=== PATIENT | female | born 1980 | race Caucasian/White ===

== ENCOUNTER 2016-05-08 07:18 | Day surgery (SDC) | END 2016-05-08 07:19 | disposition home or self-care (01) | CPT/HCPCS: 43239; J3010; J7120 ==

== ENCOUNTER 2016-12-02 20:42 | Emergency (ER) | payer OTHER ==
--- NOTE | 2016-12-02 21:36 | ED Physician Documentation ---
PD HPI HEADACHE - Stated complaint Stated Complaint: HEADACHE - Chief complaint Chief Complaint: Neuro - History obtained from History obtained from: Patient - History of Present Illness Timing - onset: Today (this morning) Timing - duration: Hours Timing - details: Constant, Waxing and waning Pain level now: 8 Worst headache ever?: No: Worst headache ever? Location: Right Quality: Throbbing Associated symptoms: Nausea. No: Fever, Stiff neck, Vomiting Improved by: Dark room, Quiet Worsened by: Light, Noise Similar symptoms before: Diagnosis (c/w previous migraine headaches for this patient (per patient)) Recently seen: Not recently seen - Additional information Additional information: Patient tried Imitrex x 2 doses today, zofran, and motrin; she did not have adequate relief with these medications Review of Systems Constitutional: denies: Fever Eyes: reports: Photophobia. denies: Loss of vision, Decreased vision GI: reports: Nausea. denies: Abdominal Pain Neurologic: reports: Headache. 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 - Present Medications Home Medications: Ambulatory Orders Medication Instructions Recorded Confirmed Albuterol 2.5 mg INH Q4H PRN 09/05/13 12/02/16 Fluticasone/Salmeterol [Advair 1 puffs INH BID 02/18/16 12/02/16 500-50 Diskus] Levalbuterol [Xopenex] 1.25 mg INH RTQ4H #30 neb 02/20/16 12/02/16 Norethindrone 0.35 mg PO DAILY 05/08/16 12/02/16 Cetirizine [ZyrTEC] 10 mg PO DAILY 12/02/16 12/02/16 Ondansetron Odt [Zofran Odt] 4 mg PO PRN PRN 12/02/16 12/02/16 Sumatriptan Succinate [Imitrex] 50 mg PO PRN PRN 12/02/16 12/02/16 - Allergies Allergies/Adverse Reactions: Allergies Allergy/AdvReac Type Severity Reaction Status Date / Time peanut Allergy Severe anaphalaxis Verified 04/26/16 17:53 ipratropium bromide * Allergy Intermediate Unknown Verified 04/26/16 17:53 [From Atrovent] tree nut Allergy Anaphylaxis Verified 04/26/16 17:53 zolpidem tartrate * AdvReac Intermediate swelling Verified 04/26/16 17:53 [From Ambien] - Social History Does the pt smoke?: No Smoking Status: Never smoker Does the pt drink ETOH?: No Does the pt have substance abuse?: No - Immunizations Immunizations are current?: Yes PD ED PE NORMAL - Vitals Vital signs reviewed: Yes - General General: Alert and oriented X 3, Well developed/nourished, Other (appears uncomfortable) - HEENT HEENT: PERRL, EOMI - Neck Neck: Supple, no meningeal sign - Cardiac Cardiac: RRR, No murmur - Respiratory Respiratory: No respiratory distress, Clear bilaterally - Neuro Neuro: Alert and oriented X 3, stamper blocker 2-12 intact, No motor deficit, No sensory deficit, Normal speech Results - Vitals Vitals: Vital Signs - 24 hr 12/02/16 12/02/16 20:47 22:51 Temperature 36.6 C 36.7 C Heart Rate 97 84 Respiratory 18 18 Rate Blood Pressure 131/91 H 115/78 O2 Saturation 99 97 Oxygen O2 Source Room air PD MEDICAL DECISION MAKING - ED course Complexity details: re-evaluated patient, considered differential, d/w patient ED course: Patient says that Toradol, reglan, and benadryl have worked in the past for her migraine headaches. These were given and, on reevaluation, she appears awake, alert, and in NAD. She reports significant improvement in symptoms and requesting d/c home Departure - Departure Disposition: 01 Home, Self Care Clinical Impression: Migraine Condition: Good Instructions: ED Headache Migraine Follow-Up: Sid Alberto DO [Primary Care Provider] - Discharge Date/Time: 12/02/16 22:55
[2016-12-02] MEDS ORDERED: KETOROLAC 60 MG/2 ML VIAL IM STA (21:47)
[2016-12-02] MEDS ORDERED: METOCLOPRAMIDE 10 MG/2 ML VIAL IM STA (21:47)
[2016-12-02] MEDS ORDERED: diphenhydrAMINE INJ 50 MG/ML VIAL IM STA (21:48)
[2016-12-02] MEDS ORDERED: diphenhydrAMINE INJ 50 MG/ML VIAL ONE (21:54)
[2016-12-02] MEDS ORDERED: METOCLOPRAMIDE 10 MG/2 ML VIAL ONE (21:54)
[2016-12-02] MEDS ORDERED: KETOROLAC 60 MG/2 ML VIAL ONE (21:55)
[2016-12-02 22:51] VITALS: BP 115/78
== END 2016-12-02 22:55 | disposition home or self-care (01) ==
LOC: ED 20:42
DX: G43.909 Migraine, unspecified, not intractable, without status migrainosus (principal)
CPT/HCPCS: 96372; 99283

== ENCOUNTER 2017-07-26 13:05 | Emergency (ER) | payer OTHER ==
[2017-07-26 13:12] VITALS: BP 138/79
--- NOTE | 2017-07-26 13:28 | ED Physician Documentation ---
PD HPI HEENT - Stated complaint Stated Complaint: TOOTH PAIN, EAR PAIN, HEAD PAIN, NECK PAIN - Chief complaint Chief Complaint: Heent - History obtained from History obtained from: Patient - History of Present Illness Timing - onset: Other (She has a history of a lot of dental problems, she developed right upper canine pain 4 days ago and started taking a Z-Jez she had leftover for another condition a couple of days ago but it continues to get worse with pain now radiating throughout the whole area. No fevers.) Review of Systems Constitutional: denies: Fever, Chills Nose: denies: Rhinorrhea / runny nose, Congestion Throat: denies: Sore throat Cardiac: denies: Chest pain / pressure PD PAST MEDICAL HISTORY - Past Medical History Past Medical History: Yes Cardiovascular: None Respiratory: Asthma Neuro: Headache/migraine, Other Endocrine/Autoimmune: None GI: Other : None HEENT: None Psych: None Musculoskeletal: Fatigue, Other Derm: Eczema - Past Surgical History Past Surgical History: Yes General: Cholecystectomy, Colonoscopy Ortho:  /WASTE HAND: section - Present Medications Home Medications: Ambulatory Orders Medication Instructions Recorded Confirmed Albuterol 2.5 mg INH Q4H PRN 09/05/13 12/02/16 Fluticasone/Salmeterol [Advair 1 puffs INH BID 02/18/16 12/02/16 500-50 Diskus] Levalbuterol [Xopenex] 1.25 mg INH RTQ4H #30 neb 02/20/16 12/02/16 Norethindrone 0.35 mg PO DAILY 05/08/16 12/02/16 Cetirizine [ZyrTEC] 10 mg PO DAILY 12/02/16 12/02/16 Ondansetron Odt [Zofran Odt] 4 mg PO PRN PRN 12/02/16 12/02/16 Sumatriptan Succinate [Imitrex] 50 mg PO PRN PRN 12/02/16 12/02/16 Penicillin V Potassium 500 mg PO QID #40 tablet 07/26/17 - Allergies Allergies/Adverse Reactions: Allergies Allergy/AdvReac Type Severity Reaction Status Date / Time peanut Allergy Severe anaphalaxis Verified 07/26/17 13:11 ipratropium bromide * Allergy Intermediate Unknown Verified 07/26/17 13:11 [From Atrovent] tree nut Allergy Anaphylaxis Verified 07/26/17 13:11 zolpidem tartrate * AdvReac Intermediate swelling Verified 07/26/17 13:11 [From Ambien] - Social History Does the pt smoke?: No Smoking Status: Never smoker Does the pt drink ETOH?: No Does the pt have substance abuse?: No - Immunizations Immunizations are current?: Yes PD ED PE NORMAL - Vitals Vital signs reviewed: Yes - General General: Alert and oriented X 3, No acute distress - HEENT HEENT: Other (Right upper canine is tender, she is receding gums. There is no facial swelling, trismus, sublingual edema, or facial swelling. TMs are normal. ) - Neck Neck: Supple, no meningeal sign, No bony TTP - Neuro Neuro: Alert and oriented X 3, Normal speech Results - Vitals Vitals: Vital Signs - 24 hr 07/26/17 13:09 Temperature 36.6 C Heart Rate 90 Respiratory 18 Rate Blood Pressure 138/79 H O2 Saturation 100 Oxygen O2 Source Room air Departure - Departure Disposition: 01 Home, Self Care Clinical Impression: Pain, dental Condition: Good Record reviewed to determine appropriate education?: Yes Instructions: ED Tooth Pain Prescriptions: Penicillin V Potassium 500 mg PO QID #40 tablet Comments: Your blood pressure was elevated today on check into the emergency department. This does not mean that you have hypertension, it is a common phenomenon to come to the emergency department and have elevated blood pressure. I recommend that you see your primary care physician within the week to have it rechecked when you are feeling better. It is very important that you follow-up with a dentist. When it comes to dental problems like yours, the emergency department can only offer a short- term solution to your long-term problem. A couple of low cost options for dental care include: [facility] in [place], calls [phone] for an appointment Or [facility] in [place], call [phone] for an appointment.
== END 2017-07-26 13:32 | disposition home or self-care (01) ==
LOC: ED 13:05
DX: K08.89 Other specified disorders of teeth and supporting structures (principal); R03.0 Elevated blood-pressure reading, without diagnosis of hypertension
CPT/HCPCS: 99283

== ENCOUNTER 2017-07-27 18:42 | Emergency (ER) | payer OTHER ==
[2017-07-27] MEDS ORDERED: ONDANSETRON 4 MG/2 ML VIAL IVP STA (19:02)
[2017-07-27] MEDS ORDERED: KETOROLAC 60 MG/2 ML VIAL IVP STA (19:02)
[2017-07-27] MEDS ORDERED: diphenhydrAMINE INJ 50 MG/ML VIAL IVP STA (19:03)
[2017-07-27] MEDS ORDERED: METOCLOPRAMIDE 10 MG/2 ML VIAL IVP STA (19:03)
--- NOTE | 2017-07-27 19:05 | ED Physician Documentation ---
History of Present Illness - Stated complaint Stated Complaint: FACE PAIN/BANERJEE - Chief complaint Chief Complaint: Heent - History obtained from History obtained from: Patient - History of Present Illness Timing: Other (She was seen here for yesterday for right upper dental pain that was radiating throughout the face. She was placed on penicillin and at the time declined pain medications. She returns today because the pain is much worse and now involve the occipital area and she is developing some neck tightness and stiffness which reminds her of a prior episode of viral meningitis which has her very worried. There is no fever.) Review of Systems Ten Systems: 10 systems reviewed and negative Constitutional: denies: Fever, Chills Nose: denies: Rhinorrhea / runny nose, Congestion Throat: reports: Dental pain / toothache. 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 - Present Medications Home Medications: Ambulatory Orders Medication Instructions Recorded Confirmed Albuterol 2.5 mg INH Q4H PRN 09/05/13 12/02/16 Fluticasone/Salmeterol [Advair 1 puffs INH BID 02/18/16 12/02/16 500-50 Diskus] Levalbuterol [Xopenex] 1.25 mg INH RTQ4H #30 neb 02/20/16 12/02/16 Norethindrone 0.35 mg PO DAILY 05/08/16 12/02/16 Cetirizine [ZyrTEC] 10 mg PO DAILY 12/02/16 12/02/16 Ondansetron Odt [Zofran Odt] 4 mg PO PRN PRN 12/02/16 12/02/16 Sumatriptan Succinate [Imitrex] 50 mg PO PRN PRN 12/02/16 12/02/16 Penicillin V Potassium 500 mg PO QID #40 tablet 07/26/17 - Allergies Allergies/Adverse Reactions: Allergies Allergy/AdvReac Type Severity Reaction Status Date / Time peanut Allergy Severe anaphalaxis Verified 07/26/17 13:11 ipratropium bromide * Allergy Intermediate Unknown Verified 07/26/17 13:11 [From Atrovent] tree nut Allergy Anaphylaxis Verified 07/26/17 13:11 zolpidem tartrate * AdvReac Intermediate swelling Verified 07/26/17 13:11 [From Ambien] - Social History Does the pt smoke?: No Smoking Status: Never smoker Does the pt drink ETOH?: No Does the pt have substance abuse?: No - Immunizations Immunizations are current?: Yes PD ED PE NORMAL - Vitals Vital signs reviewed: Yes - General General: Alert and oriented X 3, No acute distress - HEENT HEENT: PERRL, EOMI, Ears normal, Other (She has receding gums and tenderness around the right upper canine, but no facial swelling, trismus, sublingual edema. TMs are normal.) - Neck Neck: No bony TTP, Other (She does have mild neck stiffness.) - Cardiac Cardiac: RRR, No murmur - Respiratory Respiratory: No respiratory distress, Clear bilaterally - Abdomen Abdomen: Normal bowel sounds, Soft, Non tender - Back Back: No CVA TTP, No spinal TTP - Derm Derm: Normal color, Warm and dry - Extremities Extremities: No edema, No calf tenderness / cord - Neuro Neuro: Alert and oriented X 3, Normal speech Eye Opening: Spontaneous Motor: Obeys Commands Verbal: Oriented GCS Score: 15 - Psych Psych: Normal mood, Normal affect Results - Vitals Vitals: Vital Signs - 24 hr 07/27/17 18:45 Temperature 36.6 C Heart Rate 78 Respiratory 18 Rate Blood Pressure 141/91 H O2 Saturation 100 Oxygen O2 Source Room air - Labs Labs: Laboratory Tests 07/27/17 07/27/17 07/27/17 19:17 19:17 19:30 WBC 12.0 H RBC 4.34 Hgb 12.7 Hct 37.8 MCV 87.2 MCH 29.3 MCHC 33.6 RDW 12.9 Plt Count 453 H MPV 7.0 L Neut # 8.5 H Lymph # 2.2 [place] # 0.6 Eos # 0.6 Baso # 0.1 Absolute Nucleated RBC 0.01 Nucleated RBC % 0.1 Sodium 134 L Potassium 4.0 Chloride 100 L Carbon Dioxide 25 Anion Gap 9.0 BUN 12 Creatinine 0.7 Estimated GFR (MDRD) 95 Glucose 89 Calcium 9.2 Total Bilirubin 0.2 AST 25 ALT 30 Alkaline Phosphatase 38 L Total Protein 7.7 Albumin 4.0 Globulin 3.7 Albumin/Globulin Ratio 1.1 Lipase 16 L CSF Color COLORLESS CSF Clarity CLEAR Xanthrochromic ABSENT CSF WBC 1 CSF RBC 0 CSF Cell Count Tube # CSF TUBE# 3 CSF Glucose 55 CSF Total Protein 47 H Procedures - Lumbar Puncture Position: Sitting Location: L3-L4 Anesthesia: Local lidocaine CSF: Clear Pressures: Opening Pressure Other: Sterile prep and drape, Patient tolerated well PD MEDICAL DECISION MAKING - ED course ED course: Medically this really is not consistent with meningitis but she was very worried for same and her symptoms were reminiscent of prior episode of same so an LP was done and negative for same. She was administered IV fluids, Toradol, Reglan, and Benadryl with some relief of her pain. Also IV Rocephin. Still seems like a dental source. Departure - Departure Disposition: 01 Home, Self Care Clinical Impression: Pain, dental Migraine Qualifiers: Migraine type: without aura Status migrainosus presence: without status migrainosus Intractability: not intractable Qualified Code(s): G43.009 - Migraine without aura, not intractable, without status migrainosus Condition: Good Record reviewed to determine appropriate education?: Yes Instructions: ED Tooth Pain Comments: Hydrocodone as needed for pain, also ibuprofen. Return if worsening and follow- up with your dentist as previously discussed. Continue the antibiotics. Your blood pressure was elevated today on check into the emergency department. This does not mean that you have hypertension, it is a common phenomenon to come to the emergency department and have elevated blood pressure. I recommend that you see your primary care physician within the week to have it rechecked when you are feeling better.
[2017-07-27 19:22] LABS: BASOPHILS # (AUTO) 0.1 10^3/uL (0.0-0.1); EOSINOPHILS % (AUTO) 4.6 %; LYMPHOCYTES # (AUTO) 2.2 10^3/uL (1.5-3.5); MONOCYTES # (AUTO) 0.6 10^3/uL (0.0-1.0); MONOCYTES % (AUTO) 5.3 %; NEUTROPHILS # (AUTO) 8.5 10^3/uL (1.5-6.6)
[2017-07-27] MEDS ORDERED: LIDOCAINE 1%-EPI 1:100000 20 ML MDV SUBQ STA (19:24)
[2017-07-27 19:25] LABS: EOSINOPHILS # (AUTO) 0.6 10^3/uL (0.0-0.7); HGB - HEMOGLOBIN 12.7 g/dL (12.0-16.0); LYMPHOCYTES % (AUTO) 18.3 %; MEAN CORPUSCULAR HEMOGLOBIN 29.3 pg (27.0-31.0); MEAN CORPUSCULAR HGB CONC 33.6 g/dL (32.0-36.0); MEAN CORPUSCULAR VOLUME 87.2 fL (81.0-99.0); NEUTROPHILS % (AUTO) 70.8 %; PLT - PLATELET COUNT 453 10^3/uL (130-450); RED BLOOD COUNT 4.34 10^6/uL (4.20-5.40); RED CELL DISTRIBUTION WIDTH 12.9 % (12.0-15.0)
[2017-07-27 19:33] LABS: ALBUMIN/GLOBULIN RATIO 1.1 (1.0-2.2); BILIRUBIN,TOTAL 0.2 mg/dL (0.2-1.0); CALCIUM 9.2 mg/dL (8.5-10.3); CREATININE 0.7 mg/dL (0.4-1.0); TOTAL PROTEIN 7.7 g/dL (6.7-8.2)
[2017-07-27 20:00] LABS: CSF - GLUCOSE 55 mg/dL (45-70)
[2017-07-27 20:16] LABS: CLARITY,CSF CLEAR (CLEAR); COLOR,CSF COLORLESS (COLORLESS); CSF TUBE # CSF TUBE# 3; CSF XANTHOCHROMIA ABSENT (ABSENT); RED BLOOD CELL,CSF 0 /mm^3 (0-1); WHITE BLOOD CELL,CSF 1 /mm^3 (0-5)
[2017-07-27] MEDS ORDERED: cefTRIAXone 1 GM in SODIUM CHLORIDE 0.9% MINIBAG 100 ML IV STA (20:18)
[2017-07-27 21:07] VITALS: BP 117/76
== END 2017-07-27 21:06 | disposition home or self-care (01) ==
LOC: ED 18:42
DX: K08.89 Other specified disorders of teeth and supporting structures (principal); G43.909 Migraine, unspecified, not intractable, without status migrainosus; R03.0 Elevated blood-pressure reading, without diagnosis of hypertension
CPT/HCPCS: 36415; 62270; 80053; 82945; 83690; 84157; 85025; 87070; 87205; 89051; 96365; 96375; 99283; 99284; J1200; J2765

== ENCOUNTER 2017-08-16 14:39 | Emergency (ER) | payer OTHER ==
[2017-08-16] MEDS ORDERED: EPINEPHrine 1 MG/ML AMP IM STA (14:46)
[2017-08-16] MEDS ORDERED: diphenhydrAMINE INJ 50 MG/ML VIAL IVP STA (14:47)
[2017-08-16] MEDS ORDERED: methylPREDNISolone SUCCINATE 125 MG/2 ML VIAL IVP STA (14:47)
[2017-08-16] MEDS ORDERED: SODIUM CHLORIDE 0.9% 1,000 ML IV ONE ×2 (14:47)
--- NOTE | 2017-08-16 14:53 | ED Physician Documentation ---
History of Present Illness - Stated complaint Stated Complaint: SOA.ALLERGIC REACTION - Chief complaint Chief Complaint: Allergic Rx - History obtained from History obtained from: Patient, Family - History of Present Illness Timing: How many minutes ago (30) Pain level max: 0 Pain level now: 0 Improved by: epi pen Worsened by: eating pesto - Additonal information Additional information: States eating pesto today and developed an allergic reaction. Used her epi pen immediately. Now feeling short of breath. Has known allergies to nuts. Review of Systems Ten Systems: 10 systems reviewed and negative Constitutional: denies: Fever, Chills Ears: denies: Ear pain Nose: denies: Rhinorrhea / runny nose, Congestion Throat: denies: Sore throat Cardiac: denies: Chest pain / pressure Respiratory: reports: Dyspnea, Wheezing. 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 - Present Medications Home Medications: Ambulatory Orders Medication Instructions Recorded Confirmed Albuterol 2.5 mg INH Q4H PRN 09/05/13 12/02/16 Fluticasone/Salmeterol [Advair 1 puffs INH BID 02/18/16 12/02/16 500-50 Diskus] Levalbuterol [Xopenex] 1.25 mg INH RTQ4H #30 neb 02/20/16 12/02/16 Norethindrone 0.35 mg PO DAILY 05/08/16 12/02/16 Cetirizine [ZyrTEC] 10 mg PO DAILY 12/02/16 12/02/16 Ondansetron Odt [Zofran Odt] 4 mg PO PRN PRN 12/02/16 12/02/16 Sumatriptan Succinate [Imitrex] 50 mg PO PRN PRN 12/02/16 12/02/16 Penicillin V Potassium 500 mg PO QID #40 tablet 07/26/17 Epinephrine [Epipen 2-Jez] 0.3 mg IJ ONCE PRN #1 auto.injct 08/16/17 predniSONE [Prednisone] 40 mg PO DAILY #10 tablet 08/16/17 - Allergies Allergies/Adverse Reactions: Allergies Allergy/AdvReac Type Severity Reaction Status Date / Time peanut Allergy Severe anaphalaxis Verified 08/16/17 14:51 ipratropium bromide * Allergy Intermediate Unknown Verified 08/16/17 14:51 [From Atrovent] tree nut Allergy Anaphylaxis Verified 08/16/17 14:51 walnut Allergy Anaphylaxis Verified 08/16/17 14:51 zolpidem tartrate * AdvReac Intermediate swelling Verified 08/16/17 14:51 [From Ambien] - Social History Does the pt smoke?: No Smoking Status: Never smoker Does the pt drink ETOH?: No Does the pt have substance abuse?: No - Immunizations Immunizations are current?: Yes PD ED PE NORMAL - Vitals Vital signs reviewed: Yes - General General: Alert and oriented X 3, Other (mod resp distress, audible wheezing) - HEENT HEENT: PERRL, Moist mucous membranes, Pharynx benign, Other (no stridor) - Neck Neck: Supple, no meningeal sign - Cardiac Cardiac: Other (tachycardic) - Respiratory Respiratory: Other (wheezing B, mod resp distress.) - Abdomen Abdomen: Soft, Non tender, Non distended - Back Back: No spinal TTP - Derm Derm: Warm and dry, No rash - Extremities Extremities: No calf tenderness / cord - Neuro Neuro: Alert and oriented X 3 - Psych Psych: Normal affect Results - Vitals Vitals: Vital Signs - 24 hr 08/16/17 08/16/17 08/16/17 14:47 15:00 15:30 Temperature Heart Rate 125 H 104 H 98 Respiratory 26 H 24 22 Rate Blood Pressure 135/103 H O2 Saturation 99 100 100 08/16/17 08/16/17 08/16/17 15:48 15:52 15:58 Temperature 36.4 C L Heart Rate 104 H Respiratory 22 Rate Blood Pressure 127/82 H O2 Saturation 99 08/16/17 17:35 Temperature Heart Rate 104 H Respiratory 18 Rate Blood Pressure 105/57 L O2 Saturation 95 Oxygen O2 Source Room air - Labs Labs: Laboratory Tests 08/16/17 16:05 Urine Color YELLOW Urine Clarity CLEAR Urine pH 5.5 Ur Specific [place] 1.015 Urine Protein NEGATIVE Urine Glucose (UA) NEGATIVE Urine Ketones NEGATIVE Urine Occult Blood NEGATIVE Urine Nitrite NEGATIVE Urine Bilirubin NEGATIVE Urine Urobilinogen 0.2 (NORMAL) Ur Leukocyte Esterase NEGATIVE Ur Microscopic Review NOT INDICATED Urine Culture Comments NOT INDICATED Urine HCG, Qual NEGATIVE PD MEDICAL DECISION MAKING - ED course Complexity details: reviewed old records, reviewed results, re-evaluated patient , considered differential, d/w patient, d/w family ED course: Patient is a 37-year-old female who presents to the emergency department with an allergic reaction today. Given a second dose of epinephrine here as well as Solu-Medrol, prednisone and Benadryl. She was also given breathing treatments as well as IV magnesium. Respiratory distress resolved. No recurrent wheezing or stridor in the emergency department despite several hours of observation. She has epi-pens at home. Someone will stay with her today. She would like to go home at this time and I think this is reasonable given the resolution of her symptoms and the fact that several hours of pass since her last epinephrine. Patient counseled regarding signs and symptoms for which I believe and urgent re -evaluation would be necessary. Patient with good understanding of and agreement to plan and is comfortable going home at this time This document was made in part using voice recognition software. While efforts are made to proofread this document, sound alike and grammatical errors may occur. Departure - Departure Disposition: 01 Home, Self Care Clinical Impression: Anaphylaxis Qualifiers: Encounter type: initial encounter Qualified Code(s): T78.2XXA - Anaphylactic shock, unspecified, initial encounter Condition: Good Instructions: ED Anaphylaxis General Follow-Up: your,doctor in 1 week [Other] Prescriptions: Epinephrine [Epipen 2-Jez] 0.3 mg IJ ONCE PRN #1 auto.injct PRN Reason: Anaphylaxis predniSONE [Prednisone] 40 mg PO DAILY #10 tablet Comments: Return if you worsen. Continue the steroids at home. Also continue Benadryl at home, 25-50 mg every 6 hours as needed. Someone needs to stay with you today. Discharge Date/Time: 08/16/17 17:35
[2017-08-16] MEDS: ALBUTEROL NEB 2.5 MG/3 ML INH STA ×2 (15:00→15:04)
[2017-08-16] MEDS ORDERED: ALBUTEROL NEB 2.5 MG/3 ML INH ONE (15:15)
[2017-08-16] MEDS ORDERED: MAGNESIUM SULFATE 2 GRAM 2 GM/50 ML BAG IV ONE (15:52)
[2017-08-16 16:10] LABS: BILIRUBIN,URINE NEGATIVE (NEGATIVE); GLUCOSE, URINE (UA) NEGATIVE (NEGATIVE); KETONES,URINE (UA) NEGATIVE (NEGATIVE); LEUKOCYTE ESTERASE, URINE NEGATIVE (NEGATIVE); NITRITE,URINE NEGATIVE (NEGATIVE); OCCULT BLOOD,URINE NEGATIVE (NEGATIVE); PH,URINE 5.5 PH (5.0-7.5); PROTEIN,URINE NEGATIVE (NEGATIVE); UROBILINOGEN,URINE 0.2 (NORMAL) E.U./dL (NORMAL)
[2017-08-16 16:14] LABS: CLARITY,URINE CLEAR (CLEAR); HCG UR QUAL NEGATIVE
[2017-08-16] MEDS ORDERED: predniSONE 20 MG TABLET PO STA (17:21)
[2017-08-16 17:36] VITALS: BP 105/57
== END 2017-08-16 17:35 | disposition home or self-care (01) ==
LOC: ED 14:39
DX: T78.2XXA Anaphylactic shock, unspecified, initial encounter (principal); Z91.018 Allergy to other foods; J45.909 Unspecified asthma, uncomplicated
CPT/HCPCS: 81003; 81025; 94640; 96361; 96372; 96374; 96375; 99284; J1200; J7512; 81001; 87086

== ENCOUNTER 2017-12-22 07:45 | Outpatient (CLI) | payer OTHER ==
--- NOTE | 2017-12-22 14:50 | MRI Report ---
Procedure Date: 12/22/2017 Accession Number: [id number] / [id number] Procedure: MRI - Cervical Spine W/O CPT Code: FULL RESULT: EXAM: MRI CERVICAL SPINE WITHOUT CONTRAST EXAM DATE: 12/22/2017 09:07 AM. CLINICAL HISTORY: Dorsalgia, unspecified. Headache. COMPARISONS: CERVICAL SPINE W/WO 01/20/2013 10:22 AM. TECHNIQUE: Multiplanar, multisequence T1-weighted and fluid-sensitive sequences of the cervical spine without contrast. Other: None. FINDINGS: Neurologic Structures: The visualized posterior fossa structures are unremarkable. No signal abnormality in the visualized spinal cord. The spinal canal is adequate. Alignment: No scoliosis or spondylolisthesis. Bone Marrow: No gross fractures or bone lesions. No marrow edema. Interspace Levels/Facets: C1-C2: Unremarkable on sagittal series. C2-C3: Unremarkable. C3-C4: Minimal dorsal disk bulge. Mild left-sided degenerative uncovertebral change. Effacement of the ventral thecal sac is noted. Mild canal narrowing. Mild left foraminal stenosis. C4-C5: Minimal dorsal disk bulge is seen. Tiny dorsal annular fissure is seen. Minimal degenerative uncovertebral change is noted. Effacement of the thecal sac is seen. Mild left foraminal narrowing. C5-C6: Minimal dorsal and inferior foraminal disk bulge is seen. Tiny dorsal annular fissure is seen. Effacement of the thecal sac is noted. Mild bilateral foraminal narrowing. C6-C7: Unremarkable. Minimal central dorsal disk bulge. C7-T1: Unremarkable. Musculature: Normal. No edema or fatty atrophy. Other: The paravertebral and prevertebral soft tissues are normal. IMPRESSION: 1. Normal appearance to the cervical spinal cord. 2. Minimal spondylosis with degenerative disk and uncovertebral change in the mid and lower cervical spine as noted above. This is not significantly changed. -C3-C4: Mild canal narrowing. Left mild foraminal stenosis. -C4-C5: Mild left foraminal narrowing. -C5-C6: Mild bilateral foraminal narrowing. RADIA
--- NOTE | 2017-12-22 17:36 | MRI Report ---
Procedure Date: 12/22/2017 Accession Number: [id number] / [id number] Procedure: MRI - Thoracic Spine W/O CPT Code: FULL RESULT: EXAM: MRI THORACIC SPINE WITHOUT CONTRAST EXAM DATE: 12/22/2017 09:39 AM. CLINICAL HISTORY: 37-year-old female. Dorsalgia, unspecified. COMPARISONS: None. TECHNIQUE: Multiplanar, multisequence T1-weighted and fluid-sensitive sequences of the thoracic spine from C7 to L1 without contrast. Other: None. FINDINGS: Spinal Canal: No signal abnormality in the visualized spinal cord. The spinal canal is adequate. Alignment: No scoliosis or spondylolisthesis. Bone Marrow: No gross fractures or bone lesion. No bone marrow replacement. Mild multilevel degenerative changes throughout the thoracic spine as evidenced by mild disk height loss and desiccation. Disk Levels/Facets: C7-T1: Unremarkable. T1-T2: Unremarkable. T2-T3: Unremarkable. T3-T4: Unremarkable. T4-T5: Mild diffuse disk bulge mildly flattening the cord. Mild central canal narrowing. No foraminal narrowing T5-T6: Unremarkable. T6-T7: Mild diffuse disk bulge. No significant central canal or foraminal narrowing. T7-T8: Unremarkable. T8-T9: Unremarkable. T9-T10: Unremarkable. T10-T11: Unremarkable. T11-T12: Unremarkable. T12-L1: Unremarkable. Musculature: Normal. No edema or fatty atrophy. Other: The visualized lungs, mediastinum, and abdominal cavity are unremarkable. IMPRESSION: 1. Mild multilevel degenerative changes throughout the thoracic spine as evidenced by mild disk height loss and desiccation. Mild diffuse disk bulge at T4-T5 level mildly flattens the cord. There is mild central canal narrowing at this level. No foraminal narrowing at T4-T5 level. 2. No significant central canal or foraminal narrowing at remaining thoracic levels. 3. No evidence of acute fracture or malalignment. No bone marrow edema. No cord signal abnormality at any level. RADIA
--- NOTE | 2017-12-22 17:49 | MRI Report ---
Procedure Date: 12/22/2017 Accession Number: [id number] / [id number] Procedure: MRI - Lumbar Spine W/O CPT Code: FULL RESULT: EXAM: MRI LUMBAR SPINE WITHOUT CONTRAST EXAM DATE: 12/22/2017 10:10 AM. CLINICAL HISTORY: 37-year-old female. DORSALGIA,UNSPECIFIED. COMPARISON: MRI lumbar spine 01/20/2013 TECHNIQUE: Multiplanar, multisequence T1-weighted and fluid-sensitive sequences of the lumbar spine from T12 to S1 without contrast. Other: None. FINDINGS: Spinal Canal: The conus terminates at T12. The conus medullaris and cauda equina are unremarkable. Alignment: No scoliosis or spondylolisthesis. Bone Marrow: Five [id number] lumbar vertebral bodies are assumed. No gross fractures or bone lesions. No bone marrow replacement. Disk Levels/Facets: T12-L1: Moderate diffuse disk bulge with superimposed left subarticular/foraminal extrusion measuring 7 mm (series 601 image 35) increased since the prior study. No significant central canal narrowing. No foraminal narrowing. Moderate left lateral recess narrowing with mass effect on traversing left L1 nerve, increased since the prior study. L1-L2: Unremarkable. L2-L3: Unremarkable. L3-L4: Moderate disk desiccation and mild diffuse disk fold. Mild anterior dural compression. No significant central canal narrowing. No foraminal narrowing. No significant interval progression. L4-L5: Mild disk height loss and moderate disk desiccation. Moderate diffuse disk bulge. Mild bilateral facet arthropathy. Mild anterior dural compression. No significant central canal narrowing. Mild bilateral foraminal narrowing. No significant interval progression. L5-S1: Moderate bilateral facet arthropathy. Moderate epidural lipomatosis. Mild to moderate central canal narrowing primarily due to epidural lipomatosis. No foraminal narrowing. Musculature: Normal. No edema or fatty atrophy. Other: Again noted are findings suggesting of uterine adenomyosis (series 301 image 4), incompletely imaged on this study. Pelvic ultrasound may be obtained to further evaluate. The partially visualized retroperitoneum is otherwise unremarkable. IMPRESSION: 1. Mild multilevel degenerative spondylosis, as detailed above and summarized below. No acute fracture or malalignment. No bone marrow edema. No cord signal abnormality. 2. T12-L1 level demonstrates a moderate diffuse disk bulge with superimposed left subarticular/foraminal extrusion measuring 7 mm (series 601 image 35), increased since the prior study. No significant central canal narrowing. No foraminal narrowing. Moderate left lateral recess narrowing with mass effect on traversing left L1 nerve, increased since the prior study. 3. L4-L5 level demonstrates no significant central canal narrowing. Mild bilateral foraminal narrowing. No significant interval progression. 4. L5-S1 level demonstrates mild to moderate central canal narrowing primarily due to epidural lipomatosis. No foraminal narrowing. 5. No significant central canal or foraminal narrowing at remaining lumbar levels. 6. Again noted are findings suggesting of uterine adenomyosis (series 301 image 4), incompletely imaged on this study. Pelvic ultrasound may be obtained to further evaluate. comment: The following findings are so common in adults without low back pain that while we report their presence, they must be interpreted with caution and in the context of the clinical situation. (Reference Tarynk et al, Spine 2001) Prevalence of findings in patients without low back pain: Disk degeneration (any evidence): 92% Disk desiccation/T2 signal loss: 83% Disk height loss: 56% Disk bulge: 64% Disk protrusion: 32% Annular tear/high intensity zone: 38% RADIA
== END 2017-12-22 07:46 | disposition home or self-care (01) ==
LOC: DI 07:45
PROVIDERS: ATTEND Internal Medicine
DX: M50.33 Other cervical disc degeneration, cervicothoracic region (principal); M47.812 Spondylosis without myelopathy or radiculopathy, cervical region; M48.02 Spinal stenosis, cervical region; M47.816 Spondylosis without myelopathy or radiculopathy, lumbar region; M51.26 Other intervertebral disc displacement, lumbar region
CPT/HCPCS: 72141; 72146; 72148

== ENCOUNTER 2018-05-21 10:50 | Day surgery (SDC) | payer OTHER ==
[~2018-05-21 10:50] MED LIST: CYCLOPENTOLATE 1% OPHTH DROPS 2 ML ONE; KETOROLAC 0.45% OPHTH DROPS ONE; PHENYLEPHRINE 2.5% OPHTH 2 ML DROPS ONE; PROPARACAINE 0.5% OPHTH DROPS 15 ML ONE
[2018-05-21] MEDS ORDERED: ceFAZolin 2 GM/50 ML 2 GM/50 ML BAG IV ONE (11:01)
[2018-05-21] MEDS ORDERED: LIDOCAINE 1%-EPI 1:100000 30 ML MDV ONE (11:06)
--- NOTE | 2018-05-21 11:21 | ANESTHESIA ---
Pre-Anesthesia VS, & Labs - Diagnosis desires sterilization, abnormal uterine bleeding - Procedure laparoscopic salpingectomy, endometrial ablation novasure Vital Signs: Temp Pulse Resp BP Pulse Ox 36.8 C 88 16 132/97 H 96 05/21/18 11:10 05/21/18 11:10 05/21/18 11:10 05/21/18 11:10 05/21/18 11:10 Height 5 ft 3 in Weight (kg) 80.29 kg Body Mass Index 28.3 - NPO >8 hours - Is Patient ?: No Home Medications and Allergies Home Medications: Ambulatory Orders Albuterol 2.5 mg INH Q4H PRN 05/14/18 Albuterol Sulfate [Proair Respiclick] 90 mcg IH 05/14/18 Benralizumab [Fasenra] 30 mg SQ 05/14/18 Cholecalciferol (Vitamin D3) [Vitamin D3] 1,000 unit PO 05/14/18 Dextroamphetamine/Amphetamine [Adderall 5 mg Tablet] 5 mg PO 05/14/18 Fluticasone [Flonase] 1 sprays OFE DAILY 05/14/18 Fluticasone/Salmeterol [Advair 500-50 Diskus] 1 each IH BID 05/14/18 Magnesium 250 mg PO 05/14/18 Montelukast [Singulair] 10 mg PO QPM 05/14/18 Zinc Gluconate [Zinc] 50 mg PO 05/14/18 hydrOXYzine HCl [Hydroxyzine HCl] PRN 05/14/18 Albuterol 2.5 mg INH Q4H PRN 09/05/13 Cetirizine [ZyrTEC] 10 mg PO DAILY 12/02/16 Albuterol 2.5 mg INH Q4H PRN 05/14/18 Albuterol Sulfate [Proair Respiclick] 90 mcg IH 05/14/18 Benralizumab [Fasenra] 30 mg SQ 05/14/18 Cholecalciferol (Vitamin D3) [Vitamin D3] 1,000 unit PO 05/14/18 Dextroamphetamine/Amphetamine [Adderall 5 mg Tablet] 5 mg PO 05/14/18 Fluticasone [Flonase] 1 sprays OFE DAILY 05/14/18 Fluticasone/Salmeterol [Advair 500-50 Diskus] 1 each IH BID 05/14/18 Magnesium 250 mg PO 05/14/18 Montelukast [Singulair] 10 mg PO QPM 05/14/18 Zinc Gluconate [Zinc] 50 mg PO 05/14/18 hydrOXYzine HCl [Hydroxyzine HCl] PRN 05/14/18 Allergies/Adverse Reactions: Allergies Allergy/AdvReac Type Severity Reaction Status Date / Time peanut Allergy Severe anaphalaxis Verified 08/16/17 14:51 ipratropium bromide * Allergy Intermediate Unknown Verified 08/16/17 14:51 [From Atrovent] tree nut Allergy Anaphylaxis Verified 08/16/17 14:51 walnut Allergy Anaphylaxis Verified 08/16/17 14:51 zolpidem tartrate * AdvReac Intermediate swelling Verified 08/16/17 14:51 [From Ambien] tiotropium AdvReac Respiratory Verified 05/14/18 14:02 [From Spiriva with HandiHaler] Anes History & Medical History - Anesthetic History Anesthesia Complications: reports: Post-Operative Nausea/Vomiting, Slow wake-up Family history of Anesthesia Complications: Denies Family history of Malignant Hyperthermia: Denies - Medical History Cardiovascular: reports: None Pulmonary: reports: Asthma Gastrointestinal: reports: Other Urinary: reports: None Musculoskeletal: reports: Fatigue, Other Endocrine/Autoimmune: reports: None Blood Disorders: reports: None Skin: reports: Eczema Smoking Status: Never smoker - Surgical History General: Cholecystectomy, Colonoscopy Gynecologic: section Exam General: Alert Dental: Other (crown) Mouth Opening: Greater than 4 Fingerbreadths Neck Mobility: Normal Mallampati classification: I Thyromental Distance: 4-6 cm Respiratory: Wheezing Cardiovascular: Regular rate, Normal S1, Normal S2, No murmurs Mental/Cognitive Status: Alert/Oriented X3, Normal for patient Plan Anesthesia Type: General Consent for Procedure(s) Verified and Reviewed: No Code Status: Attempt Resuscitation ASA classification: 2-Mild systemic disease Is this case an emergency?: No
[2018-05-21 11:22] LABS: HCG UR QUAL NEGATIVE
[2018-05-21] MEDS ORDERED: LACTATED RINGERS 1,000 ML IV ONE (11:36)
[2018-05-21] MEDS ORDERED: BUPIVACAINE 0.25% PF 30 ML VIAL ONE (11:55)
[2018-05-21] MEDS ORDERED: MIDAZOLAM 2 MG/2 ML VIAL IVP ONE (12:00)
[2018-05-21] MEDS ORDERED: ROCURONIUM 50 MG/5 ML VIAL IVP ONE (12:00)
[2018-05-21] MEDS ORDERED: NEOSTIGMINE 1 MG/1 ML 10 ML MDV IVP ONE (12:00)
[2018-05-21] MEDS ORDERED: PROPOFOL 200 MG/20 ML VIAL IVP ONE (12:00)
[2018-05-21] MEDS ORDERED: DEXAMETHASONE 4 MG/ML VIAL IVP ONE (12:00)
[2018-05-21] MEDS ORDERED: ONDANSETRON 4 MG/2 ML VIAL IVP ONE (12:00)
[2018-05-21] MEDS ORDERED: fentaNYL 100 MCG/2 ML VIAL IVP ONE (12:00)
[2018-05-21] MEDS ORDERED: GLYCOPYRROLATE 1 MG/5 ML VIAL IVP ONE (12:00)
[2018-05-21] MEDS ORDERED: KETOROLAC 30 MG/ML VIAL IVP ONE (12:00)
[2018-05-21] MEDS ORDERED: LIDOCAINE-MPF 2% 5 ML VIAL IM ONE (12:00)
[2018-05-21] MEDS ORDERED: BUPIVACAINE 0.25% PF 30 ML VIAL SUBQ ONE ×2 (13:04)
[2018-05-21] MEDS ORDERED: LIDOCAINE MPF 1%-EPI 1:200000 30 ML VIAL SUBQ ONE (13:36)
[2018-05-21] MEDS ORDERED: HYDROcod/ACETAM 10 MG/325 MG TABLET PO PRN (14:00)
[2018-05-21] MEDS ORDERED: ONDANSETRON 4 MG/2 ML VIAL IVP PRN (14:00)
--- NOTE | 2018-05-21 14:02 | OPERATIVE REPORT ---
Operative Report - General Procedure Date: 05/21/18 Planned Procedure: Laparoscopic bilateral salpingectomy, hysteroscopy, D&C, endomet ablation Pre-Op Diagnosis: Desires sterilization, Abnormal uterine bleeding Procedure Performed: Laparoscopic bilateral salpingectomy, lysis of adhesions, hysteroscopy, dilation and curettage, endometrial ablation (Novasure) Post Op Diagnosis: MAL, suspected adenomyosis - Procedure Note Primary Surgeon: Dr. Cat Dumont Secondary Surgeon: Dr. Schuyler Barajas Anesthesia Provider: RYAN Dolan Anesthesia Technique: General ET tube, Local Pathology: 1. Bilateral fallopian tubes, 2. Endometrial curettings IV Fluids (mL): 600 Estimated Blood Loss (mL): 25 Urine Output (mL): 125 Complications: None - Other Other Information/Narrative: Indications: The patient is a 37-year-old 3 para 3 female with bothersome abnormal uterine bleeding, for which she has tried medical therapy in the form of progesterone intrauterine device and control pills. Both of these forms of medication aggravated her chronic medical conditions, and she had to discontinue them despite beneficial effect on her bleeding. Additionally, she desires permanent sterilization in the form of a bilateral tubal occlusion or removal. She states she has completed her childbearing. Menses have been occurring monthly but have been very heavy and painful when off control pills. Endometrial biopsy was performed the clinic and was benign. Limited sono noted a normal-appearing endometrial stripe with no clear endometrial abnormalities noted. A 2.17 x 1.9 cm simple appearing cyst was noted on the right ovary on 19 May. The left ovary appeared normal by sono. The risks, benefits, limitations, alternatives, and expectations of surgery were discussed. The consent was reviewed and signed prior to surgery. Findings: Exam under anesthesia noted the uterus was approximately 8 weeks in size and retroverted. There were no adnexal masses palpable. Operative findings were notable for a normal-appearing, an enlarged, boggy-appearing uterus with normal appearing fallopian tubes and ovaries. A 2 cm simple- appearing cyst was noted on the right ovary and left in situ. There was a 0.5 cm paratubal cyst noted on the right distal fallopian tube. There were no endometriosis lesions present. The liver edge was visualized and appeared fatty consistent with her known diagnosis of such. There were multiple omental adhesions to the anterior peritoneum, just below and above the umbilicus. These were lysed with bovie cautery. Hysteroscopic findings noted a normal endometrial cavity. Cavity length was 10 cm with cervical length 4 cm. Uterine cavity length alone was therefore 6 cm, and width measured at 4.9 cm. Post- ablation hysteroscopy noted disseminated cauterization throughout. Procedure: The patient was taken to the operating room, where general endotracheal anesthesia was administered without difficulty. She was then positioned in the low dorsal lithotomy position with her lower extremities in [place] stirrups. Vagina, perineum, and abdomen were then prepped and draped in a sterile fashion, and an in-an-out catheterization was performed. Procedure Time-Out was then performed. A sterile bivalve speculum was then inserted into the vagina. The anterior lip of the cervix was grasped with a single toothed tenaculum, then the cervix serially dilated with Hegar dilators until a HUMI uterine manipulator could be advanced and the balloon inflated. The tenaculum and speculum were then removed from the vagina. Attention was then turned to the laparoscopy. 0.25% Marcaine was injected infraumbilically, then a 7-mm horizontal skin incision made. A Verrees needle was then inserted through the anterior layers of the abdominal wall with saline drop test suggesting intraperitoneal placement. Carbon dioxide gas insufflation was then performed with appropriate opening pressures noted. Once 2 L of gas was instilled, a 0-degree, 5 mm laparoscope was inserted into a 5 mm trocar and passed through the anterior layers of the abdominal wall using [employer] nique. The abdomen was visualized, then 2 additional ports placed at the right and left lower quadrants, first instilling local anesthetic, then placing 5 mm ports. The patient was placed into Trendelenberg and bowel swept out of the cul-de-sac. The right, distal fallopian tube was then grasped and pulled anteriorly and superiorly. The tubo-ovarian ligament was then crossclamped, cauterized, and cut using the PlasmaKinetic, then the mesosalpinx was crossclamped, cauterized, and cut, completely the right fallopian tube from the uterus at the cornual region. The right fallopian tube was then removed from the abdomen. The left distal fallopian tube including the paratubal cyst was then grasped and pulled anteriorly and superiorly. The tubo-ovarian pedicle was then crosscla mped, cauterized, and cut, the distal left fallopian tube from the left ovary. The mesosalpinx was then serially cauterized and cut until the cornual region was reached, then the cornual fallopian tube was crossclamped cauterized and cut. The surgical sites appeared hemostatic. The left fallopian tube was removed from the abdomen. Attention was then turned to lysis of the omental adhesions, which was performed using the PlasmaKinetic. Once complete, hemostasis of the omentum was ensured. At this point the laparoscopy was deemed complete, and all trochars were removed from the abdomen. The carbon dioxide gas was then allowed to escape. The incisions were then closed with 4-0 Monocryl in a subcuticular fashion followed by Dermabond skin adhesive. Attention was then turned to the hysteroscopy and ablation portion of the case. The uterine manipulator was removed, and the sterile bivalve speculum was then reinserted. The single-toothed tenaculum was then replaced. Quarter percent Marcaine with epinephrine was injected at the 0200, 0400, 0700, and 1000 positions for a paracervical block. The 30 degree diagnostic hysteroscope was then inserted. Using saline for distension, the endometrial cavity was visualized and appeared normal. A curettage was performed, sending tissue for specimen. The Novasure device was placed onto the field. The uterine cavity le ngth and width were measured, and cavity assessment passed without concerns. The ablation was then performed for 55 sec to power of 162 Adames. The device was then retracted, and the hysteroscope reintroduce. Post-ablation endometrium appeared well-cauterized, and the scope was then again removed. The tenaculum was then removed from the cervix, and the tenaculum sites hemostatic with gentle pressure. No bleeding was noted, and the speculum was then removed. At this point the procedure was deemed complete. The patient was then replaced supine, awakened, extubated, and transferred to the PACU in stable condition. There were no complications. Sponge, lap, and needle count were correct x 3.
[2018-05-21] MEDS ORDERED: HYDROcod/ACETAM 10 MG/325 MG TABLET ONE (15:07)
[2018-05-21 15:18] VITALS: BP 137/82
== END 2018-05-21 10:51 | disposition home or self-care (01) ==
LOC: SDS 10:50
PROVIDERS: ATTEND Obstetrics & Gynecology
PROC: 0U5B8ZZ Destruction of Endometrium, Via Natural or Artificial Opening Endoscopic (ICD-10-PCS; 2018-05-21)
PROC: 0UT74ZZ Resection of Bilateral Fallopian Tubes, Percutaneous Endoscopic Approach (ICD-10-PCS; principal; 2018-05-21 12:00)
PROC: 0UJD8ZZ Inspection of Uterus and Cervix, Via Natural or Artificial Opening Endoscopic (ICD-10-PCS; 2018-05-21 12:00)
PROC: 0UDB7ZX Extraction of Endometrium, Via Natural or Artificial Opening, Diagnostic (ICD-10-PCS; 2018-05-21 12:00)
DX: N93.9 Abnormal uterine and vaginal bleeding, unspecified (principal); Z30.2 Encounter for sterilization; N83.201 Unspecified ovarian cyst, right side; N83.8 Other noninflammatory disorders of ovary, fallopian tube and broad ligament; J45.50 Severe persistent asthma, uncomplicated; F90.9 Attention-deficit hyperactivity disorder, unspecified type; G43.909 Migraine, unspecified, not intractable, without status migrainosus; K76.0 Fatty (change of) liver, not elsewhere classified; Z79.891 Long term (current) use of opiate analgesic; Z79.51 Long term (current) use of inhaled steroids; Z79.1 Long term (current) use of non-steroidal anti-inflammatories (NSAID); Z86.39 Personal history of other endocrine, nutritional and metabolic disease
CPT/HCPCS: 58563; 58661; 81025; A9270; J0690; J7120

== ENCOUNTER 2018-07-16 20:18 | Emergency (ER) | payer OTHER ==
[2018-07-16] MEDS ORDERED: ALBUTEROL NEB 2.5 MG/3 ML INH STA ×2 (20:30→21:51)
[2018-07-16] MEDS ORDERED: methylPREDNISolone SUCCINATE 125 MG/2 ML VIAL IVP STA (20:43)
--- NOTE | 2018-07-16 20:48 | ED Physician Documentation ---
PD HPI DYSPNEA - Stated complaint Stated Complaint: SOA - Chief complaint Chief Complaint: Resp - History obtained from History obtained from: Patient - History of Present Illness Timing - onset: How many days ago (4) Timing - onset during: Rest, Exertion Timing - duration: Days (4) Timing - details: Gradual onset Pain level max: 0 Pain level now: 0 Inciting event(s): URI Improved by: Rest Worsened by: Exertion, Coughing Associated symptoms: Cough, Wheezing. No: Fever, Hemoptysis, Chest pain / discomfort Recently seen: Not recently seen - Additional information Additional information: took 60mg prednisone prior to coming in. 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 - Present Medications Home Medications: Ambulatory Orders Medication Instructions Recorded Confirmed Albuterol 2.5 mg INH Q4H PRN 09/05/13 05/14/18 Cetirizine [ZyrTEC] 10 mg PO DAILY 12/02/16 05/21/18 EPINEPHrine [Epipen 2-Jez] 0.3 mg IJ ONCE PRN #1 auto.injct 08/16/17 Albuterol 2.5 mg INH Q4H PRN 05/14/18 05/21/18 Albuterol Sulfate [Proair 90 mcg IH 05/14/18 Respiclick] Benralizumab [Fasenra] 30 mg SQ 05/14/18 Cholecalciferol (Vitamin D3) 1,000 unit PO 05/14/18 [Vitamin D3] Dextroamphetamine/Amphetamine 5 mg PO 05/14/18 [Adderall 5 mg Tablet] Fluticasone [Flonase] 1 sprays OFE DAILY 05/14/18 05/21/18 Fluticasone/Salmeterol [Advair 1 each IH BID 05/14/18 05/21/18 500-50 Diskus] Magnesium 250 mg PO 05/14/18 Montelukast [Singulair] 10 mg PO QPM 05/14/18 05/21/18 Zinc Gluconate [Zinc] 50 mg PO 05/14/18 hydrOXYzine HCl [Hydroxyzine HCl] PRN 05/14/18 - Allergies Allergies/Adverse Reactions: Allergies Allergy/AdvReac Type Severity Reaction Status Date / Time peanut Allergy Severe anaphalaxis Verified 07/16/18 20:23 ipratropium bromide * Allergy Intermediate Unknown Verified 07/16/18 20:23 [From Atrovent] tree nut Allergy Anaphylaxis Verified 07/16/18 20:23 walnut Allergy Anaphylaxis Verified 07/16/18 20:23 zolpidem tartrate * AdvReac Intermediate swelling Verified 07/16/18 20:23 [From Ambien] tiotropium AdvReac Respiratory Verified 07/16/18 20:23 [From Spiriva with HandiHaler] - Social History Does the pt smoke?: No Smoking Status: Never smoker Does the pt drink ETOH?: No Does the pt have substance abuse?: No - Immunizations Immunizations are current?: Yes PD ED PE NORMAL - Vitals Vital signs reviewed: Yes - General General: Alert and oriented X 3, No acute distress, Well developed/nourished - HEENT HEENT: PERRL, Moist mucous membranes - Neck Neck: Supple, no meningeal sign - Cardiac Cardiac: Other (Tachycardic) - Respiratory Respiratory: Other (Wheezing bilaterally) - Abdomen Abdomen: Soft, Non tender, Non distended - Derm Derm: Warm and dry - Extremities Extremities: No edema, No calf tenderness / cord - Neuro Neuro: Alert and oriented X 3 - Psych Psych: Normal mood, Normal affect Results - Vitals Vitals: Vital Signs - 24 hr 07/16/18 07/16/18 07/16/18 20:20 20:46 21:59 Temperature 36.4 C L Heart Rate 130 H 122 H 102 H Respiratory 26 H 18 Rate Blood Pressure 126/96 H O2 Saturation 98 Oxygen O2 Source Room air - Labs Labs: Laboratory Tests 07/16/18 07/16/18 20:45 20:45 WBC 10.5 RBC 4.61 Hgb 13.9 Hct 40.2 MCV 87.2 MCH 30.2 MCHC 34.7 RDW 13.2 Plt Count 381 MPV 7.4 L Neut # (Auto) 9.5 H Lymph # (Auto) 0.7 L [place] # (Auto) 0.2 Eos # (Auto) 0.0 Baso # (Auto) 0.0 Absolute Nucleated RBC 0.00 Nucleated RBC % 0.0 Sodium 136 Potassium 4.1 Chloride 105 Carbon Dioxide 20 L Anion Gap 11.0 BUN 12 Creatinine 0.7 Estimated GFR (MDRD) 95 Glucose 256 H Calcium 9.5 PD MEDICAL DECISION MAKING - ED course Complexity details: reviewed results, re-evaluated patient, considered differential, d/w patient ED course: 37-year-old female with an asthma exacerbation. Feels much better after nebulizer treatments and steroids. Has steroids, albuterol for her nebulizer and albuterol inhaler. We will have her follow-up with her doctor for further care. She is well-appearing, nontoxic. Afebrile. No hypoxia or respiratory distress. Patient counseled regarding signs and symptoms for which I believe and urgent re-evaluation would be necessary. Patient with good understanding of and agreement to plan and is comfortable going home at this time This document was made in part using voice recognition software. While efforts are made to proofread this document, sound alike and grammatical errors may occur. Departure - Departure Disposition: Home, Self Care Clinical Impression: Asthma exacerbation Qualifiers: Asthma severity: unspecified severity Asthma persistence: unspecified Qualified Code(s): J45.901 - Unspecified asthma with (acute) exacerbation Condition: Good Instructions: ED Reactive Airway Disease Follow-Up: MAGAN BLEDSOE MD [Primary Care Provider] - Within 1 week Comments: Continue your current medications at home. Return if you worsen. Follow-up with your doctor for further care.
[2018-07-16 20:59] LABS: BASOPHILS % (AUTO) 0.3 %; HGB - HEMOGLOBIN 13.9 g/dL (12.0-16.0); LYMPHOCYTES # (AUTO) 0.7 10^3/uL (1.5-3.5); LYMPHOCYTES % (AUTO) 6.5 %; MEAN CORPUSCULAR HEMOGLOBIN 30.2 pg (27.0-31.0); MEAN CORPUSCULAR HGB CONC 34.7 g/dL (32.0-36.0); MEAN CORPUSCULAR VOLUME 87.2 fL (81.0-99.0); MEAN PLATELET VOLUME 7.4 fL (7.9-10.8); MONOCYTES # (AUTO) 0.2 10^3/uL (0.0-1.0); MONOCYTES % (AUTO) 2.2 %; NEUTROPHILS # (AUTO) 9.5 10^3/uL (1.5-6.6); PLT - PLATELET COUNT 381 10^3/uL (130-450); RED BLOOD COUNT 4.61 10^6/uL (4.20-5.40); RED CELL DISTRIBUTION WIDTH 13.2 % (12.0-15.0); WHITE BLOOD COUNT 10.5 x10^3/uL (4.8-10.8)
[2018-07-16 21:08] LABS: CALCIUM 9.5 mg/dL (8.5-10.3); CREATININE 0.7 mg/dL (0.4-1.0)
[2018-07-16 22:05] VITALS: BP 106/72
== END 2018-07-16 22:19 | disposition home or self-care (01) ==
LOC: ED 20:18
DX: J45.901 Unspecified asthma with (acute) exacerbation (principal)
CPT/HCPCS: 36415; 80048; 85025; 94640; 96374; 99283

== ENCOUNTER 2018-07-25 19:13 | Inpatient (IN) | payer OTHER ==
[2018-07-25] MEDS ORDERED: ALBUTEROL NEB 2.5 MG/3 ML INH STA (19:28)
[2018-07-25] MEDS ORDERED: IPRATROPIUM/ALBUTEROL 3 ML NEB INH STA (19:28)
[2018-07-25] MEDS ORDERED: MAGNESIUM SULFATE 2 GRAM 2 GM/50 ML BAG IV ONE (19:31)
[2018-07-25] MEDS ORDERED: methylPREDNISolone SUCCINATE 125 MG/2 ML VIAL IVP STA (19:31)
--- NOTE | 2018-07-25 19:33 | ED Physician Documentation ---
PD HPI URI - Stated complaint Stated Complaint: ASTHMA ATTACK - Chief complaint Chief Complaint: Resp - History obtained from History obtained from: Patient - History of Present Illness Timing - onset: Other (37-year-old woman with history of severe asthma with multiple hospital admissions in the past presents with an exacerbation of same. It was set off by a viral URI which she has had for about 2 weeks. She was on steroids, stopped a few days ago and restarted yesterday. Despite that she is much worse over the last 24 hours with severe shortness of breath and productive cough. 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 - Present Medications Home Medications: Ambulatory Orders Medication Instructions Recorded Confirmed Albuterol 2.5 mg INH Q4H PRN 09/05/13 05/14/18 Cetirizine [ZyrTEC] 10 mg PO DAILY 12/02/16 05/21/18 EPINEPHrine [Epipen 2-Jez] 0.3 mg IJ ONCE PRN #1 auto.injct 08/16/17 Albuterol 2.5 mg INH Q4H PRN 05/14/18 05/21/18 Albuterol Sulfate [Proair 90 mcg IH 05/14/18 Respiclick] Benralizumab [Fasenra] 30 mg SQ 05/14/18 Cholecalciferol (Vitamin D3) 1,000 unit PO 05/14/18 [Vitamin D3] Dextroamphetamine/Amphetamine 5 mg PO 05/14/18 [Adderall 5 mg Tablet] Fluticasone [Flonase] 1 sprays OFE DAILY 05/14/18 05/21/18 Fluticasone/Salmeterol [Advair 1 each IH BID 05/14/18 05/21/18 500-50 Diskus] Magnesium 250 mg PO 05/14/18 Montelukast [Singulair] 10 mg PO QPM 05/14/18 05/21/18 Zinc Gluconate [Zinc] 50 mg PO 05/14/18 hydrOXYzine HCl [Hydroxyzine HCl] PRN 05/14/18 - Allergies Allergies/Adverse Reactions: Allergies Allergy/AdvReac Type Severity Reaction Status Date / Time peanut Allergy Severe anaphalaxis Verified 07/16/18 20:23 ipratropium bromide * Allergy Intermediate Unknown Verified 07/16/18 20:23 [From Atrovent] tree nut Allergy Anaphylaxis Verified 07/16/18 20:23 walnut Allergy Anaphylaxis Verified 07/16/18 20:23 zolpidem tartrate * AdvReac Intermediate swelling Verified 07/16/18 20:23 [From Ambien] tiotropium AdvReac Respiratory Verified 07/16/18 20:23 [From Spiriva with HandiHaler] - Social History Does the pt smoke?: No Smoking Status: Never smoker Does the pt drink ETOH?: No Does the pt have substance abuse?: No - Immunizations Immunizations are current?: Yes PD ED PE NORMAL - Vitals Vital signs reviewed: Yes - General General: Alert and oriented X 3, Other (She is visibly tachypneic and speaking in very short sentences with labored breathing.) - HEENT HEENT: PERRL, EOMI - Neck Neck: Supple, no meningeal sign, No bony TTP - Cardiac Cardiac: RRR, No murmur - Respiratory Respiratory: Other (Tight and wheezy throughout and diminished especially at the left base) - Abdomen Abdomen: Soft, Non tender - Back Back: No CVA TTP, No spinal TTP - Derm Derm: No rash - Extremities Extremities: No edema, No calf tenderness / cord - Neuro Neuro: Alert and oriented X 3, Normal speech Results - Vitals Vitals: Vital Signs - 24 hr 07/25/18 07/25/18 19:19 19:25 Temperature 37.3 C Heart Rate 160 H 160 H Respiratory 22 24 Rate Blood Pressure 162/96 H 162/96 H O2 Saturation 98 98 Oxygen O2 Source Room air - Labs Labs: Laboratory Tests 07/25/18 07/25/18 07/25/18 19:38 19:38 19:45 WBC 16.5 H RBC 4.56 Hgb 13.5 Hct 39.4 MCV 86.5 MCH 29.7 MCHC 34.3 RDW 13.8 Plt Count 397 MPV 7.0 L Neut # (Auto) 14.0 H Lymph # (Auto) 1.3 L [place] # (Auto) 1.1 H Eos # (Auto) 0.0 Baso # (Auto) 0.1 Absolute Nucleated RBC 0.00 Nucleated RBC % 0.0 Sodium 137 Potassium 3.6 Chloride 104 Carbon Dioxide 20 L Anion Gap 13.0 BUN 9 Creatinine 0.7 Estimated GFR (MDRD) 95 Glucose 118 H Calcium 9.3 Total Bilirubin 0.2 AST 60 H ALT 86 H Alkaline Phosphatase 59 Total Protein 8.1 Albumin 4.5 Globulin 3.6 Albumin/Globulin Ratio 1.3 Lipase 29 Influenza A (Rapid) Negative Influenza B (Rapid) Negative PD MEDICAL DECISION MAKING - ED course ED course: This is 37-year-old woman with a history of asthma, with several admissions to the hospital in the past who presents with respiratory distress and clinical asthma having failed outpatient treatment already on steroids. She was administered IV steroids, 125 mg of Solu-Medrol and IV magnesium 2 g here. She received initially a triple neb with DuoNeb and 2 albuterol's and later a triple neb with 3 Xopenex's. She was placed on BiPAP and will need admission for further evaluation and treatment and spoke with Dr. Johnson for same at 8:25 PM. - Critical Care Time(min): 45 Time Includes: Direct patient care, Review records, Reassess patient, Document care, Coordinate care, Medical consult Procedures included in critical care time: Peripheral IV Departure - Departure Disposition: [facility] DC/Xfer Clinical Impression: Asthma exacerbation Qualifiers: Asthma severity: severe Asthma persistence: persistent Qualified Code(s): J45.51 - Severe persistent asthma with (acute) exacerbation Condition: Critical
[2018-07-25 19:46] LABS: BASOPHILS # (AUTO) 0.1 10^3/uL (0.0-0.1); BASOPHILS % (AUTO) 0.6 %; HGB - HEMOGLOBIN 13.5 g/dL (12.0-16.0); LYMPHOCYTES # (AUTO) 1.3 10^3/uL (1.5-3.5); LYMPHOCYTES % (AUTO) 8.1 %; MEAN CORPUSCULAR HEMOGLOBIN 29.7 pg (27.0-31.0); MEAN CORPUSCULAR HGB CONC 34.3 g/dL (32.0-36.0); MEAN CORPUSCULAR VOLUME 86.5 fL (81.0-99.0); MONOCYTES # (AUTO) 1.1 10^3/uL (0.0-1.0); MONOCYTES % (AUTO) 6.4 %; NEUTROPHILS % (AUTO) 84.9 %; PLT - PLATELET COUNT 397 10^3/uL (130-450); RED BLOOD COUNT 4.56 10^6/uL (4.20-5.40); RED CELL DISTRIBUTION WIDTH 13.8 % (12.0-15.0); WHITE BLOOD COUNT 16.5 x10^3/uL (4.8-10.8)
[2018-07-25] MEDS ORDERED: SODIUM CHLORIDE 0.9% 1,000 ML IV ONE (19:49)
[2018-07-25 20:01] LABS: ALBUMIN 4.5 g/dL (3.2-5.5); ALBUMIN/GLOBULIN RATIO 1.3 (1.0-2.2); BILIRUBIN,TOTAL 0.2 mg/dL (0.2-1.0); CALCIUM 9.3 mg/dL (8.5-10.3); CREATININE 0.7 mg/dL (0.4-1.0); TOTAL PROTEIN 8.1 g/dL (6.7-8.2)
[2018-07-25] MEDS ORDERED: LEVALBUTEROL 1.25 MG/3 ML NEB INH ONE ×2 (20:11→21:46)
--- NOTE | 2018-07-25 20:22 | XRAY Report ---
Reason: dyspnea Procedure Date: 07/25/2018 Accession Number: [id number] / [id number] Procedure: XR - Chest 1 View X-Ray CPT Code: 38595 FULL RESULT: EXAM: CHEST RADIOGRAPHY EXAM DATE: 07/25/2018 07:56 PM. CLINICAL HISTORY: Dyspnea. Pain. Productive cough. History of asthma. COMPARISON: CHEST 2 VIEW PA/LAT 04/26/2016 6:23 PM. TECHNIQUE: 1 view. FINDINGS: Lungs/Pleura: Subtle increased prominence of right lung markings particularly in the base. No consolidation, effusion, or pneumothorax. Mediastinum: Within exam limitations, the cardiomediastinal contour is normal. Vessels not distended. Other: None. IMPRESSION: Subtle right basilar infiltrate. RADIA
[2018-07-25] MEDS ORDERED: HYDROcod/ACETAM 5/325 MG TABLET PO PRN (20:39)
--- NOTE | 2018-07-25 20:51 | HISTORY & PHYSICAL EXAMINATION ---
Chief Complaint - Chief Complaint Chief Complaint: Worsening shortness of breath with wheezing Respiratory Admission HPI - Admitted From Admitted from: ED - History Obtained From Records Reviewed: RN notes reviewed, Old records reviewed History obtained from: Patient, Family Exam limitations: Clinical condition (Patient is very short of breath speaking short sentences) - History of Present Illness HPI Comment/Other: This is a pleasant 37-year-old female with a past medical history of severe asthma with Multiple admissions, eczema, and SHAW who presents to the emergency department with an exacerbation of her asthma. It was set off by a viral URI which she has had for about 2 weeks. She was on steroids, stopped a few days ago and restarted yesterday. Despite that she is much worse over the last 24 hours with severe shortness of breath and productive cough. She denies fevers. On examination patient had diffuse expiratory prolonged rhonchi with phase along with wheezing to the bases and speaking in short sentences. However patient maintain her saturations and was non-hypoxemic but still tachypneic after rec eiving 6 nebulizer treatments and was placed on BiPAP. Patient had tachycardia 142 bpm blood pressure was 131/85 with 90% O2 saturation on room air. Respiratory rate 24 despite nebulizers and given Solu-Medrol 125 mg IV push x1 and 2 g of magnesium IV push x1. Patient has never been intubated in the past and takes albuterol nebulizers along with Flonase as she does suffer from prior sinusitis and postnasal drip. On laboratory analysis patient had a WBC of 16.5 with normal electrolytes normal renal function elevated transaminases with AST of 60 ALT of 86 however patient states that she has been diagnosed with an SHWA. Patient also states that when she is given steroids she goes into hyperglycemia which is steroid-induced which she is needing insulin. Patient's chest x-ray shows a right basilar infiltrate concerning for early pneumonic process. Patient will be admitted for further valuation management and treatment and continuation of an NIPPV. Flu swab negative. Lactic acid 4.4. Patient states that she suffers from severe allergic asthma all her life and was previously on Xolair and was off due to prior history of meningitis. 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: section Social & Family Hx - Social History Does the pt smoke?: No Smoking Status: Never smoker Does the pt drink ETOH?: No Does the pt have substance abuse?: No Meds/Allgy - Home Medications Home Medications: Ambulatory Orders Medication Instructions Recorded Confirmed Albuterol 2.5 mg INH Q4H PRN 09/05/13 05/14/18 Cetirizine [ZyrTEC] 10 mg PO DAILY 12/02/16 05/21/18 EPINEPHrine [Epipen 2-Jez] 0.3 mg IJ ONCE PRN #1 auto.injct 08/16/17 Albuterol 2.5 mg INH Q4H PRN 05/14/18 05/21/18 Albuterol Sulfate [Proair 90 mcg IH 05/14/18 Respiclick] Benralizumab [Fasenra] 30 mg SQ 05/14/18 Cholecalciferol (Vitamin D3) 1,000 unit PO 05/14/18 [Vitamin D3] Dextroamphetamine/Amphetamine 5 mg PO 05/14/18 [Adderall 5 mg Tablet] Fluticasone [Flonase] 1 sprays OFE DAILY 05/14/18 05/21/18 Fluticasone/Salmeterol [Advair 1 each IH BID 05/14/18 05/21/18 500-50 Diskus] Magnesium 250 mg PO 05/14/18 Montelukast [Singulair] 10 mg PO QPM 05/14/18 05/21/18 Zinc Gluconate [Zinc] 50 mg PO 05/14/18 hydrOXYzine HCl [Hydroxyzine HCl] PRN 05/14/18 - Allergies Allergies/Adverse Reactions: Allergies Allergy/AdvReac Type Severity Reaction Status Date / Time peanut Allergy Severe anaphalaxis Verified 07/16/18 20:23 ipratropium bromide * Allergy Intermediate Unknown Verified 07/16/18 20:23 [From Atrovent] tree nut Allergy Anaphylaxis Verified 07/16/18 20:23 walnut Allergy Anaphylaxis Verified 07/16/18 20:23 zolpidem tartrate * AdvReac Intermediate swelling Verified 07/16/18 20:23 [From Ambien] tiotropium AdvReac Respiratory Verified 07/16/18 20:23 [From Spiriva with HandiHaler] Review of Systems - All Other Systems All Other Systems: reports: Reviewed and negative Prior Level of Functionality: Patient is independent with home ADLs Exam - Vital Signs Reviewed Vital Signs: Yes Vital Signs: Vital Signs x48h Temp Pulse Resp BP Pulse Ox 07/25/18 19:25 160 H 24 162/96 H 98 07/25/18 19:19 37.3 C 160 H 22 162/96 H 98 - Physical Exam General Appearance: positive: Alert, Moderate distress, Other (Patient speaking in short sentences) Eyes Bilateral: positive: Normal inspection, PERRL, EOMI, Conjunctivae nml ENT: positive: ENT inspection nml, Pharynx nml, No signs of dehydration Neck: positive: Nml inspection, Thyroid nml, No JVD, Trachea midline. negative: Thyromegaly Respiratory: positive: Chest non-tender, Wheezes, Rhonchi, Other (Increased work of breath with associated intercostal retractions noted. Increase use of Accessory muscles noted) Cardiovascular: positive: Regular rate & rhythm, No murmur, No gallop, Tachycardia. negative: Irregularly irregular, JVD present, Gallop/S4, Friction rub Peripheral Pulses: positive: 2+ Abdomen: positive: Non-tender, No organomegaly, Nml bowel sounds, No distention. negative: Tenderness Back: positive: Nml inspection Skin: positive: Color nml, No rash Extremities: positive: Non-tender, Full ROM, Nml appearance Neurologic/Psychiatric: positive: Oriented x3, CN's nml (2-12) Results - Lab Results Lab results reviewed: Yes Fish Bones: 07/25/18 19:38 07/25/18 19:38 Other Lab Results: Lab Results x24hrs 07/25/18 07/25/18 07/25/18 Range/Units 19:45 19:38 19:38 WBC 16.5 H (4.8-10.8) x10^3/uL RBC 4.56 (4.20-5.40) 10^6/uL Hgb 13.5 (12.0-16.0) g/dL Hct 39.4 (37.0-47.0) % MCV 86.5 (81.0-99.0) fL MCH 29.7 (27.0-31.0) pg MCHC 34.3 (32.0-36.0) g/dL RDW 13.8 (12.0-15.0) % Plt Count 397 (130-450) 10^3/uL MPV 7.0 L (7.9-10.8) fL Neut # (Auto) 14.0 H (1.5-6.6) 10^3/uL Lymph # (Auto) 1.3 L (1.5-3.5) 10^3/uL [place] # (Auto) 1.1 H (0.0-1.0) 10^3/uL Eos # (Auto) 0.0 (0.0-0.7) 10^3/uL Baso # (Auto) 0.1 (0.0-0.1) 10^3/uL Absolute Nucleated RBC 0.00 x10^3/uL Nucleated RBC % 0.0 /100WBC Sodium 137 (135-145) mmol/L Potassium 3.6 (3.5-5.0) mmol/L Chloride 104 (101-111) mmol/L Carbon Dioxide 20 L (21-32) mmol/L Anion Gap 13.0 (6-13) BUN 9 (6-20) mg/dL Creatinine 0.7 (0.4-1.0) mg/dL Estimated GFR (MDRD) 95 (>89) Glucose 118 H (70-100) mg/dL Calcium 9.3 (8.5-10.3) mg/dL Total Bilirubin 0.2 (0.2-1.0) mg/dL AST 60 H (10-42) IU/L ALT 86 H (10-60) IU/L Alkaline Phosphatase 59 (42-121) IU/L Total Protein 8.1 (6.7-8.2) g/dL Albumin 4.5 (3.2-5.5) g/dL Globulin 3.6 (2.1-4.2) g/dL Albumin/Globulin Ratio 1.3 (1.0-2.2) Lipase 29 (22-51) U/L Influenza A (Rapid) Negative (Negative) Influenza B (Rapid) Negative (Negative) - Diagnostic Imaging Results Diagnostic Imaging Results: positive: Final report reviewed (Chest x-ray shows a right basilar infiltrate) - EKG Results EKG Interpreted Independently: No Sepsis Event Note (H) - Evaluation Current Stage of Sepsis: Ruled out (Tachycardia secondary to nebulizers, leukocytosis secondary to steroids) Possible source of Sepsis: positive: Pulmonary Confirmed Source and Organism (if known) of Sepsis: Although there is a confirmed source of infection/URI with chest x-ray shows right basilar infiltrate vital signs are attributable to medications and leukocytosis attributable to steroid Impression/Plan - Problem List Problem List: Assessment: 1. Acute severe Allergic type asthma exacerbation currently on BiPAP 2. Commute acquired pneumonia 3. Intractable coughing with a history of postnasal drip 4. Steroid-induced leukocytosis 5. Lactic acidosis secondary to #1/#2 6. History of an SHAW 7. History of multiple allergies and history of eczema Plan: We will admit to inpatient service placed on noninvasive positive pressure ventilation to improve ventilation and perfusion although patient is not hypoxemic she is using accessory muscles and tachypneic which eventually will lead to respiratory failure. Due to patient's multiple allergies such as Atrovent will defer off duo nebs and placed on Xopenex instead every 2 hours [id number], continue with Solu-Medrol at 80 mg IV q. q6-8 hours, continue Singulair, start Pulmicort nebs 0.5 mg inhaled twice daily, start empiric IV antibiotics with Levaquin as patient is having productive cough and Right basilar infiltrate seen, steroid induced leukocytosis is seen in the setting of tachypnea and tachycardia do not believe this is sepsis although right basilar infiltrate is present. Aggressive medical management with pulmonary toileting, blood and sputum cultures obtain, antitussives indicated. In an event that patient continues with respiratory distress and has impending failure despite BiPAP will obtain ABG to evaluate for true hypoxemia or worsening respiratory acidosis with acidemia. Consider Xolair. Consider intubation if accessory muscle fatigue noted plus evidence of worsening hypoxemic respiratory failure seen on ABG or pulse oximetry. Flu swab negative. Lactic acid 4.4. Although patient meets SIRS/sepsis criteria patient's vital signs are indicative of medication induced tachycardia/tachypnea from severe asthma, as well as being on steroids previously and lactic acidosis likely due to continued respiratory di stress with increased demand on pulmonary system, tachypnea as it pertains to her severe asthma with early PNA. LA trending indicated. Respiratory syncytial virus and sputum culture to follow. Patient's nonalcoholic steatosis hepatitis will be managed with steroids and possible Trental if needed. Hyperglycemia likely anticipated and will likely need insulin sliding scale with glucose management and glycemic control. Patient states that she suffers from severe allergic asthma all her life and was previously on Xolair and was off due to prior history of meningitis. 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 Will provide benzodiazepine to offset steroid-induced anxiety. We will institute DVT and GI prophylaxis. CODE STATUS: Full code Core Measures - Anticipated LOS I expect patient to be DC'd or transferred within 96 hours.: Yes - Issues Hospital Issues and Management Plan: Patient currently on BiPAP and will be on aggressive medical management for severe asthma exacerbation. - DVT/VTE - Prophylaxis VTE/DVT Device ordered at admit?: Yes VTE/DVT Prophylaxis med ordered at admit?: No Not Ordered - Medical Reason: Not indicated - Stroke - Rehab Assessment Rehab services assessment to be ordered?: No Not Ordered - Medical Reason: Not indicated - AMI - Statin at Admit Aspirin Prescribed on Admit: No Not Ordered - Medical Reason: Not indicated
[2018-07-25] MEDS ORDERED: FAMOTIDINE 20 MG TABLET PO SCH (21:00)
[2018-07-25] MEDS ORDERED: FLUTICASONE NASAL SPRAY NAS SCH (21:00)
[2018-07-25] MEDS: LEVALBUTEROL 1.25 MG/3 ML NEB INH SCH (21:42)
[2018-07-25] MEDS ORDERED: PROCHLORPERAZINE 5 MG TABLET PO PRN (21:44)
[2018-07-25] MEDS ORDERED: SODIUM CHLORIDE FLUSH 0.9% 10 ML SYRINGE ONE (21:55)
[2018-07-25] MEDS: levoFLOXacin 750 MG/150 ML 750 MG/150 ML BAG IV SCH (21:56)
[2018-07-25] MEDS: MONTELUKAST 10 MG TABLET PO SCH (21:58)
[2018-07-25] MEDS ORDERED: LEVALBUTEROL 1.25 MG/3 ML NEB INH SCH (22:00)
[2018-07-25] MEDS: FAMOTIDINE 20 MG/2 ML VIAL IVP SCH (22:02)
[2018-07-25] MEDS: methylPREDNISolone SUCCINATE 125 MG/2 ML VIAL IVP SCH (22:03)
[2018-07-25] MEDS ORDERED: hydrALAZINE INJ 20 MG/ML VIAL IVP PRN (22:07)
[2018-07-25] MEDS: BACLOFEN 10 MG TABLET PO PRN (23:00)
[2018-07-25] MEDS: guaiFENesin/CODEINE 5 ML UDC PO PRN (23:05)
[2018-07-25] MEDS: oxyCODONE 5 MG TABLET PO PRN (23:15)
[2018-07-25] MEDS: METOCLOPRAMIDE 10 MG/2 ML VIAL IVP PRN (23:46)
[2018-07-26] MEDS: LEVALBUTEROL 1.25 MG/3 ML NEB INH SCH ×12 (00:12→22:07)
[2018-07-26] MEDS: LORazepam 0.5 MG TABLET SL PRN ×2 (00:53→17:42)
[2018-07-26] MEDS: SODIUM CHLORIDE FLUSH 0.9% 10 ML SYRINGE IVP SCH ×3 (03:09→15:00)
[2018-07-26 06:42] LABS: BASOPHILS % (AUTO) 0.1 %; HGB - HEMOGLOBIN 12.6 g/dL (12.0-16.0); LYMPHOCYTES # (AUTO) 0.6 10^3/uL (1.5-3.5); LYMPHOCYTES % (AUTO) 3.8 %; MEAN CORPUSCULAR HGB CONC 33.3 g/dL (32.0-36.0); MEAN CORPUSCULAR VOLUME 87.3 fL (81.0-99.0); MEAN PLATELET VOLUME 7.5 fL (7.9-10.8); MONOCYTES # (AUTO) 0.3 10^3/uL (0.0-1.0); MONOCYTES % (AUTO) 1.7 %; NEUTROPHILS # (AUTO) 15.8 10^3/uL (1.5-6.6); NEUTROPHILS % (AUTO) 94.4 %; PLT - PLATELET COUNT 356 10^3/uL (130-450); RED BLOOD COUNT 4.33 10^6/uL (4.20-5.40); RED CELL DISTRIBUTION WIDTH 13.8 % (12.0-15.0); WHITE BLOOD COUNT 16.8 x10^3/uL (4.8-10.8)
[2018-07-26] MEDS: methylPREDNISolone SUCCINATE 125 MG/2 ML VIAL IVP SCH ×3 (06:48→21:13)
[2018-07-26 06:50] LABS: ALBUMIN 3.9 g/dL (3.2-5.5); ALBUMIN/GLOBULIN RATIO 1.1 (1.0-2.2); BILIRUBIN,TOTAL 0.7 mg/dL (0.2-1.0); CALCIUM 8.4 mg/dL (8.5-10.3); CREATININE 0.7 mg/dL (0.4-1.0); TOTAL PROTEIN 7.3 g/dL (6.7-8.2)
[2018-07-26] MEDS: guaiFENesin/CODEINE 5 ML UDC PO PRN ×4 (07:33→19:41)
[2018-07-26] MEDS: FLUTICASONE NASAL SPRAY NAS SCH (08:50)
[2018-07-26] MEDS: LORATADINE 10 MG TABLET PO SCH (08:51)
[2018-07-26] MEDS: CHOLECALCIFEROL 1,000 UNIT TABLET PO SCH (08:51)
[2018-07-26] MEDS: BUDESONIDE 0.5 MG/2 ML NEB INH SCH ×2 (08:51→18:17)
[2018-07-26] MEDS: KETOROLAC 30 MG/ML VIAL IVP PRN ×3 (08:52→21:13)
[2018-07-26] MEDS: FAMOTIDINE 20 MG/2 ML VIAL IVP SCH ×2 (08:56→21:13)
[2018-07-26] MEDS: POLYETHYLENE GLYCOL 3350 17 GM PACKET PO SCH (08:57)
[2018-07-26 10:38] LABS: HB2 TOTAL 13.6 g/dL; HEMOGLOBIN A1C 0.58 g/dL; HEMOGLOBIN A1C % 6.1 % (4.6-6.2)
[2018-07-26] MEDS: INSULIN ASPART 300 UNIT/3 ML PEN SUBQ SCH ×3 (11:54→21:14)
[2018-07-26] MEDS: BACLOFEN 10 MG TABLET PO PRN ×2 (13:44→21:10)
--- NOTE | 2018-07-26 15:38 | PROVIDER PROGRESS NOTE ---
Subjective - Prog Note Date Prog Note Date: 07/26/18 Prog Note Time: 15:36 - Subjective Pt reports feeling: No change Subjective: She was placed in ICU because she needed BiPAP for her asthma. She is still struggling to breathe and goes on and off the BiPAP to putting her discomfort. She is asked for Toradol for musculoskeletal pain. Current Medications - Current Medications Current Medications: Active Medications Baclofen (Lioresal) 10 mg PO TID PRN PRN Reason: Cough Last Admin: 07/26/18 13:44 Dose: 10 mg Budesonide (Pulmicort) 0.5 mg INH RTBID [facility] Last Admin: 07/26/18 08:51 Dose: 0.5 mg Cholecalciferol (Vitamin D3) 1,000 unit PO DAILY [facility] Last Admin: 07/26/18 08:51 Dose: 1,000 unit Famotidine (Pepcid) 20 mg IVP BID [facility] Last Admin: 07/26/18 08:56 Dose: 20 mg Fluticasone Propionate (Flonase) 0 sprays OFE DAILY [facility] Last Admin: 07/26/18 08:50 Dose: 1 spr Guaifenesin/Codeine Phosphate (Robitussin Ac) 10 ml PO Q4HR PRN PRN Reason: Cough Last Admin: 07/26/18 15:36 Dose: 10 ml Hydralazine HCl (Apresoline Inj) 10 mg IVP Q4HR PRN PRN Reason: SBP>160 Levofloxacin (Levaquin 750 Mg/150 Ml) 750 mg in 150 mls @ 100 mls/hr IV Q24H [facility] Last Infusion: 07/25/18 23:30 Dose: Infused Insulin Aspart (Novolog) 1 - 9 unit SUBQ 0800,1200,1700,2100 [facility]; Protocol Last Admin: 07/26/18 11:54 Dose: 3 unit Ketorolac Tromethamine (Toradol Inj (30mg)) 30 mg IVP Q6HR PRN PRN Reason: PAIN Stop: 07/31/18 08:16 Last Admin: 07/26/18 15:00 Dose: 30 mg Levalbuterol HCl (Xopenex) 1.25 mg INH Q2HR [facility] Last Admin: 07/26/18 13:29 Dose: 1.25 mg Loratadine (Claritin) 10 mg PO DAILY [facility] Last Admin: 07/26/18 08:51 Dose: 10 mg Lorazepam (Ativan) 0.5 mg SL Q4HR PRN PRN Reason: Anxiety Last Admin: 07/26/18 00:53 Dose: 0.5 mg Methylprednisolone Sodium Succinate (Solu-Medrol (125mg Vial)) 80 mg IVP Q8HR [facility] Last Admin: 07/26/18 13:45 Dose: 80 mg Metoclopramide HCl (Reglan Inj) 10 mg IVP Q6HR PRN PRN Reason: Nausea / Vomiting Last Admin: 07/25/18 23:46 Dose: 10 mg Montelukast Sodium (Singulair) 10 mg PO QPM [facility] Last Admin: 07/25/18 21:58 Dose: 10 mg Oxycodone HCl (Roxicodone) 5 mg PO Q4HR PRN PRN Reason: PAIN Last Admin: 07/25/18 23:15 Dose: 5 mg Polyethylene Glycol (Miralax) 17 gm PO DAILY [facility] Last Admin: 07/26/18 08:57 Dose: Not Given Prochlorperazine Maleate (Compazine) 5 mg PO Q6HR PRN PRN Reason: Nausea / Vomiting Sodium Chloride (Normal Saline Flush 0.9%) 10 ml IVP PRN PRN PRN Reason: NEEDED PER PROVIDER ORDERS Sodium Chloride (Normal Saline Flush 0.9%) 10 ml IVP 0100,0900,1700 [facility] Last Admin: 07/26/18 15:00 Dose: 10 ml Albuterol 2.5 mg INH Q4H PRN 05/14/18 Albuterol Sulfate [Proair Respiclick] 2 puffs INH Q4H PRN 05/14/18 Benralizumab [Fasenra] 30 mg SQ .Q8W 05/14/18 Fluticasone [Flonase] 1 sprays OFE DAILY 05/14/18 Fluticasone/Salmeterol [Advair 500-50 Diskus] 1 puffs IH BID 05/14/18 Montelukast [Singulair] 10 mg PO QPM 05/14/18 hydrOXYzine HCl [Hydroxyzine HCl] 10 mg PO DAILY PRN 05/14/18 Ca/D3/Mag Ox/Zinc/Irrigation Flume Layer/Griffin/Bor [Calcium [id number] Chw Tb] 1 each PO DAILY 07/26/18 Dextroamphetamine/Amphetamine [Adderall Xr 5 mg Capsule] 5 mg PO DAILY PRN 07/26/18 Ibuprofen [Motrin] 400 mg PO Q6H PRN 07/26/18 Loratadine [Claritin] 10 mg PO DAILY 07/26/18 Turmeric Root Extract [Turmeric] 500 mg PO DAILY 07/26/18 Objective - Vital Signs/Intake & Output Reviewed Vital Signs: Yes Vital Signs: Vital Signs Pulse Pulse Resp BP Pulse Ox 07/26/18 15:00 97 16 142/81 H 100 07/26/18 14:00 115 H 16 115/60 07/26/18 13:35 108 H 20 07/26/18 13:00 111 H 18 97 07/26/18 12:39 108 H 07/26/18 12:00 130 H 13 112/68 97 07/26/18 11:42 114 H 22 Intake & Output: Intake & Output 07/23/18 07/24/18 07/25/18 07/26/18 23:59 23:59 23:59 23:59 Intake Total 1350 1181 Output Total 400 Balance 1350 781 - Objective General Appearance: positive: Alert, Moderate distress, Other (37-year-old female who looks stated age, sitting crosslegged in bed, tripod, BiPAP on face. Children, family in the room with her.) Eyes Bilateral: positive: PERRL, EOMI ENT: positive: Other (Hoarse voice, nasal tone of voice) Neck: positive: No JVD. negative: Stiff neck, Carotid bruit Respiratory: positive: Chest non-tender, Wheezes, Other (Able to speak about 6 or 7 words before has to take a breath, no use of accessory muscles). negative: Rales, Rhonchi Cardiovascular: positive: Regular rate & rhythm. negative: Gallop/S4, Friction rub Abdomen: positive: Non-tender, No organomegaly, Nml bowel sounds, No distention Skin: positive: Warm, Dry Extremities: positive: Full ROM, No pedal edema Neurologic/Psychiatric: positive: Oriented x3, CN's nml (2-12), Motor nml - Lab Results Fish Bones: 07/26/18 03:00 07/26/18 03:00 Other Labs: Lab Results x24hrs 07/26/18 07/26/18 07/26/18 Range/Units 11:45 06:02 03:00 WBC (4.8-10.8) x10^3/uL RBC (4.20-5.40) 10^6/uL Hgb (12.0-16.0) g/dL Hct (37.0-47.0) % MCV (81.0-99.0) fL MCH (27.0-31.0) pg MCHC (32.0-36.0) g/dL RDW (12.0-15.0) % Plt Count (130-450) 10^3/uL MPV (7.9-10.8) fL Neut # (Auto) (1.5-6.6) 10^3/uL Lymph # (Auto) (1.5-3.5) 10^3/uL [place] # (Auto) (0.0-1.0) 10^3/uL Eos # (Auto) (0.0-0.7) 10^3/uL Baso # (Auto) (0.0-0.1) 10^3/uL Absolute Nucleated RBC x10^3/uL Nucleated RBC % /100WBC Sodium (135-145) mmol/L Potassium (3.5-5.0) mmol/L Chloride (101-111) mmol/L Carbon Dioxide (21-32) mmol/L Anion Gap (6-13) BUN (6-20) mg/dL Creatinine (0.4-1.0) mg/dL Estimated GFR (MDRD) (>89) Glucose (70-100) mg/dL POC Whole Bld Glucose 182 H (70 - 100) mg/dL Glycated Hemoglobin 6.1 (4.6-6.2) % Estim Average Glucose 128 H (70-100) Lactic Acid 2.0 (0.5-2.2) mmol/L Calcium (8.5-10.3) mg/dL Total Bilirubin (0.2-1.0) mg/dL AST (10-42) IU/L ALT (10-60) IU/L Alkaline Phosphatase (42-121) IU/L Total Protein (6.7-8.2) g/dL Albumin (3.2-5.5) g/dL Globulin (2.1-4.2) g/dL Albumin/Globulin Ratio (1.0-2.2) Lipase (22-51) U/L Nasal Screen MRSA (PCR) (NEGATIVE) Influenza A (Rapid) (Negative) Influenza B (Rapid) (Negative) 07/26/18 07/26/18 07/26/18 Range/Units 03:00 03:00 03:00 WBC 16.8 H (4.8-10.8) x10^3/uL RBC 4.33 (4.20-5.40) 10^6/uL Hgb 12.6 (12.0-16.0) g/dL Hct 37.8 (37.0-47.0) % MCV 87.3 (81.0-99.0) fL MCH 29.0 (27.0-31.0) pg MCHC 33.3 (32.0-36.0) g/dL RDW 13.8 (12.0-15.0) % Plt Count 356 (130-450) 10^3/uL MPV 7.5 L (7.9-10.8) fL Neut # (Auto) 15.8 H (1.5-6.6) 10^3/uL Lymph # (Auto) 0.6 L (1.5-3.5) 10^3/uL [place] # (Auto) 0.3 (0.0-1.0) 10^3/uL Eos # (Auto) 0.0 (0.0-0.7) 10^3/uL Baso # (Auto) 0.0 (0.0-0.1) 10^3/uL Absolute Nucleated RBC 0.00 x10^3/uL Nucleated RBC % 0.0 /100WBC Sodium 135 (135-145) mmol/L Potassium 4.0 (3.5-5.0) mmol/L Chloride 104 (101-111) mmol/L Carbon Dioxide 20 L (21-32) mmol/L Anion Gap 11.0 (6-13) BUN 8 (6-20) mg/dL Creatinine 0.7 (0.4-1.0) mg/dL Estimated GFR (MDRD) 95 (>89) Glucose 171 H (70-100) mg/dL POC Whole Bld Glucose (70 - 100) mg/dL Glycated Hemoglobin (4.6-6.2) % Estim Average Glucose (70-100) Lactic Acid 2.6 H (0.5-2.2) mmol/L Calcium 8.4 L (8.5-10.3) mg/dL Total Bilirubin 0.7 (0.2-1.0) mg/dL AST 51 H (10-42) IU/L ALT 76 H (10-60) IU/L Alkaline Phosphatase 52 (42-121) IU/L Total Protein 7.3 (6.7-8.2) g/dL Albumin 3.9 (3.2-5.5) g/dL Globulin 3.4 (2.1-4.2) g/dL Albumin/Globulin Ratio 1.1 (1.0-2.2) Lipase (22-51) U/L Nasal Screen MRSA (PCR) (NEGATIVE) Influenza A (Rapid) (Negative) Influenza B (Rapid) (Negative) 07/25/18 07/25/18 07/25/18 Range/Units 21:58 21:05 19:45 WBC (4.8-10.8) x10^3/uL RBC (4.20-5.40) 10^6/uL Hgb (12.0-16.0) g/dL Hct (37.0-47.0) % MCV (81.0-99.0) fL MCH (27.0-31.0) pg MCHC (32.0-36.0) g/dL RDW (12.0-15.0) % Plt Count (130-450) 10^3/uL MPV (7.9-10.8) fL Neut # (Auto) (1.5-6.6) 10^3/uL Lymph # (Auto) (1.5-3.5) 10^3/uL [place] # (Auto) (0.0-1.0) 10^3/uL Eos # (Auto) (0.0-0.7) 10^3/uL Baso # (Auto) (0.0-0.1) 10^3/uL Absolute Nucleated RBC x10^3/uL Nucleated RBC % /100WBC Sodium (135-145) mmol/L Potassium (3.5-5.0) mmol/L Chloride (101-111) mmol/L Carbon Dioxide (21-32) mmol/L Anion Gap (6-13) BUN (6-20) mg/dL Creatinine (0.4-1.0) mg/dL Estimated GFR (MDRD) (>89) Glucose (70-100) mg/dL POC Whole Bld Glucose (70 - 100) mg/dL Glycated Hemoglobin (4.6-6.2) % Estim Average Glucose (70-100) Lactic Acid 4.4 H* (0.5-2.2) mmol/L Calcium (8.5-10.3) mg/dL Total Bilirubin (0.2-1.0) mg/dL AST (10-42) IU/L ALT (10-60) IU/L Alkaline Phosphatase (42-121) IU/L Total Protein (6.7-8.2) g/dL Albumin (3.2-5.5) g/dL Globulin (2.1-4.2) g/dL Albumin/Globulin Ratio (1.0-2.2) Lipase (22-51) U/L Nasal Screen MRSA (PCR) NEGATIVE (NEGATIVE) Influenza A (Rapid) Negative (Negative) Influenza B (Rapid) Negative (Negative) 07/25/18 07/25/18 Range/Units 19:38 19:38 WBC 16.5 H (4.8-10.8) x10^3/uL RBC 4.56 (4.20-5.40) 10^6/uL Hgb 13.5 (12.0-16.0) g/dL Hct 39.4 (37.0-47.0) % MCV 86.5 (81.0-99.0) fL MCH 29.7 (27.0-31.0) pg MCHC 34.3 (32.0-36.0) g/dL RDW 13.8 (12.0-15.0) % Plt Count 397 (130-450) 10^3/uL MPV 7.0 L (7.9-10.8) fL Neut # (Auto) 14.0 H (1.5-6.6) 10^3/uL Lymph # (Auto) 1.3 L (1.5-3.5) 10^3/uL [place] # (Auto) 1.1 H (0.0-1.0) 10^3/uL Eos # (Auto) 0.0 (0.0-0.7) 10^3/uL Baso # (Auto) 0.1 (0.0-0.1) 10^3/uL Absolute Nucleated RBC 0.00 x10^3/uL Nucleated RBC % 0.0 /100WBC Sodium 137 (135-145) mmol/L Potassium 3.6 (3.5-5.0) mmol/L Chloride 104 (101-111) mmol/L Carbon Dioxide 20 L (21-32) mmol/L Anion Gap 13.0 (6-13) BUN 9 (6-20) mg/dL Creatinine 0.7 (0.4-1.0) mg/dL Estimated GFR (MDRD) 95 (>89) Glucose 118 H (70-100) mg/dL POC Whole Bld Glucose (70 - 100) mg/dL Glycated Hemoglobin (4.6-6.2) % Estim Average Glucose (70-100) Lactic Acid (0.5-2.2) mmol/L Calcium 9.3 (8.5-10.3) mg/dL Total Bilirubin 0.2 (0.2-1.0) mg/dL AST 60 H (10-42) IU/L ALT 86 H (10-60) IU/L Alkaline Phosphatase 59 (42-121) IU/L Total Protein 8.1 (6.7-8.2) g/dL Albumin 4.5 (3.2-5.5) g/dL Globulin 3.6 (2.1-4.2) g/dL Albumin/Globulin Ratio 1.3 (1.0-2.2) Lipase 29 (22-51) U/L Nasal Screen MRSA (PCR) (NEGATIVE) Influenza A (Rapid) (Negative) Influenza B (Rapid) (Negative) Sepsis Event Note (H) - Evaluation Current Stage of Sepsis: Ruled out (Tachycardia secondary to nebulizers, leukocytosis secondary to steroids) Possible source of Sepsis: positive: Pulmonary Assessment/Plan - Problem List (1) Asthma exacerbation Impression: Patient was placed in ICU last night for use of BiPAP. She has been intermittently on and off BiPAP. Still quite tight and wheezing. No real improvement yet. Plan: Remain in ICU if has to use BiPAP Continue the steroids, antibiotics, nebulizers, Singulair Qualifiers: Asthma severity: severe Asthma persistence: persistent Qualified Code(s): J45.51 - Severe persistent asthma with (acute) exacerbation (2) Community acquired pneumonia Impression: Day #2 levaquin. Blood cultures have been received and are pending. Sputum culture is as yet uncollected since she is not able to provide phlegm yet.White cell count is elevated but is felt to be steroid induced leukocytosis. Plan: Continue antibiotics. Adjustment on the basis of cultures when they come back Qualifiers: Laterality: right Lung location: lower lobe of lung Qualified Code(s): J18.1 - Lobar pneumonia, unspecified organism (3) Lactic acidosis Impression: Resolved. secndary to asthma and low pH? Laboratory Tests 07/25/18 07/26/18 07/26/18 21:05 03:00 06:02 Lactic Acid 4.4 H* 2.6 H 2.0 (4) Hyperglycemia, drug-induced Impression: from steroids, Moderate dose SS insulin added to med list.
[2018-07-26] MEDS: oxyCODONE 5 MG TABLET PO PRN (16:54)
[2018-07-26] MEDS: MONTELUKAST 10 MG TABLET PO SCH (21:10)
[2018-07-26] MEDS: METOCLOPRAMIDE 10 MG/2 ML VIAL IVP PRN (21:13)
[2018-07-26] MEDS: levoFLOXacin 750 MG/150 ML 750 MG/150 ML BAG IV SCH (21:14)
[2018-07-27] MEDS: LEVALBUTEROL 1.25 MG/3 ML NEB INH SCH ×18 (00:20→22:36)
[2018-07-27] MEDS: SODIUM CHLORIDE FLUSH 0.9% 10 ML SYRINGE IVP SCH ×4 (01:18→22:25)
[2018-07-27] MEDS: guaiFENesin/CODEINE 5 ML UDC PO PRN ×4 (04:18→18:47)
[2018-07-27] MEDS: KETOROLAC 30 MG/ML VIAL IVP PRN ×3 (04:18→18:04)
[2018-07-27] MEDS: methylPREDNISolone SUCCINATE 125 MG/2 ML VIAL IVP SCH ×3 (06:28→22:24)
[2018-07-27] MEDS: BUDESONIDE 0.5 MG/2 ML NEB INH SCH ×2 (07:39→18:16)
[2018-07-27] MEDS: oxyCODONE 5 MG TABLET PO PRN ×2 (08:09→14:27)
[2018-07-27] MEDS: CHOLECALCIFEROL 1,000 UNIT TABLET PO SCH (08:10)
[2018-07-27] MEDS: LORATADINE 10 MG TABLET PO SCH (08:10)
[2018-07-27] MEDS: INSULIN ASPART 300 UNIT/3 ML PEN SUBQ SCH ×4 (08:12→20:50)
[2018-07-27] MEDS: FLUTICASONE NASAL SPRAY NAS SCH (08:13)
[2018-07-27] MEDS: POLYETHYLENE GLYCOL 3350 17 GM PACKET PO SCH (08:14)
[2018-07-27] MEDS: FAMOTIDINE 20 MG/2 ML VIAL IVP SCH ×2 (08:14→20:46)
[2018-07-27] MEDS ORDERED: LEVALBUTEROL 1.25 MG/3 ML NEB INH STA (10:57)
--- NOTE | 2018-07-27 11:04 | PROVIDER PROGRESS NOTE ---
Subjective - Prog Note Date Prog Note Date: 07/27/18 Prog Note Time: 11:05 - Subjective Pt reports feeling: No change Subjective: She is frustrated. By now she feels like she should have opened up. She is on maximal medical therapy and still wheezing as much as she was 24-48 hours ago. Still using BiPAP off and on. Uses Toradol as needed for diffuse myalgias. Current Medications - Current Medications Current Medications: Active Medications Baclofen (Lioresal) 10 mg PO TID PRN PRN Reason: Cough Last Admin: 07/26/18 21:10 Dose: 10 mg Budesonide (Pulmicort) 0.5 mg INH RTBID [facility] Last Admin: 07/27/18 07:39 Dose: 0.5 mg Cholecalciferol (Vitamin D3) 1,000 unit PO DAILY [facility] Last Admin: 07/27/18 08:10 Dose: 1,000 unit Famotidine (Pepcid) 20 mg IVP BID [facility] Last Admin: 07/27/18 08:14 Dose: 20 mg Fluticasone Propionate (Flonase) 0 sprays OFE DAILY [facility] Last Admin: 07/27/18 08:13 Dose: 1 spr Guaifenesin/Codeine Phosphate (Robitussin Ac) 10 ml PO Q4HR PRN PRN Reason: Cough Last Admin: 07/27/18 09:04 Dose: 10 ml Hydralazine HCl (Apresoline Inj) 10 mg IVP Q4HR PRN PRN Reason: SBP>160 Levofloxacin (Levaquin 750 Mg/150 Ml) 750 mg in 150 mls @ 100 mls/hr IV Q24H [facility] Last Infusion: 07/26/18 23:05 Dose: Infused Insulin Aspart (Novolog) 1 - 9 unit SUBQ 0800,1200,1700,2100 [facility]; Protocol Last Admin: 07/27/18 08:12 Dose: Not Given Ketorolac Tromethamine (Toradol Inj (30mg)) 30 mg IVP Q6HR PRN PRN Reason: PAIN Stop: 07/31/18 08:16 Last Admin: 07/27/18 04:18 Dose: 30 mg Levalbuterol HCl (Xopenex) 1.25 mg INH ONCE STA Stop: 07/27/18 10:58 Last Admin: 07/27/18 10:59 Dose: 1.25 mg Levalbuterol HCl (Xopenex) 1.25 mg INH Q1HR [facility] Loratadine (Claritin) 10 mg PO DAILY [facility] Last Admin: 07/27/18 08:10 Dose: 10 mg Lorazepam (Ativan) 0.5 mg SL Q4HR PRN PRN Reason: Anxiety Last Admin: 07/26/18 17:42 Dose: 0.5 mg Methylprednisolone Sodium Succinate (Solu-Medrol (125mg Vial)) 80 mg IVP Q8HR [facility] Last Admin: 07/27/18 06:28 Dose: 80 mg Metoclopramide HCl (Reglan Inj) 10 mg IVP Q6HR PRN PRN Reason: Nausea / Vomiting Last Admin: 07/26/18 21:13 Dose: 10 mg Montelukast Sodium (Singulair) 10 mg PO QPM [facility] Last Admin: 07/26/18 21:10 Dose: 10 mg Oxycodone HCl (Roxicodone) 5 mg PO Q4HR PRN PRN Reason: PAIN Last Admin: 07/27/18 08:09 Dose: 5 mg Polyethylene Glycol (Miralax) 17 gm PO DAILY [facility] Last Admin: 07/27/18 08:14 Dose: 17 gm Prochlorperazine Maleate (Compazine) 5 mg PO Q6HR PRN PRN Reason: Nausea / Vomiting Sodium Chloride (Normal Saline Flush 0.9%) 10 ml IVP PRN PRN PRN Reason: NEEDED PER PROVIDER ORDERS Sodium Chloride (Normal Saline Flush 0.9%) 10 ml IVP 0100,0900,1700 [facility] Last Admin: 07/27/18 08:14 Dose: 10 ml Albuterol 2.5 mg INH Q4H PRN 05/14/18 Albuterol Sulfate [Proair Respiclick] 2 puffs INH Q4H PRN 05/14/18 Benralizumab [Fasenra] 30 mg SQ .Q8W 05/14/18 Fluticasone [Flonase] 1 sprays OFE DAILY 05/14/18 Fluticasone/Salmeterol [Advair 500-50 Diskus] 1 puffs IH BID 05/14/18 Montelukast [Singulair] 10 mg PO QPM 05/14/18 hydrOXYzine HCl [Hydroxyzine HCl] 10 mg PO DAILY PRN 05/14/18 Ca/D3/Mag Ox/Zinc/Medical Reception Specialist/Griffin/Bor [Calcium 164-T2-Nlpvijcj Chw Tb] 1 each PO DAILY 07/26/18 Dextroamphetamine/Amphetamine [Adderall Xr 5 mg Capsule] 5 mg PO DAILY PRN 07/26/18 Ibuprofen [Motrin] 400 mg PO Q6H PRN 07/26/18 Loratadine [Claritin] 10 mg PO DAILY 07/26/18 Turmeric Root Extract [Turmeric] 500 mg PO DAILY 07/26/18 Objective - Vital Signs/Intake & Output Reviewed Vital Signs: Yes Vital Signs: Vital Signs Temp Pulse Pulse Resp BP Pulse Ox 07/27/18 10:57 110 H 18 139/87 H 97 07/27/18 10:46 94 20 07/27/18 10:00 98 16 105/71 98 07/27/18 09:00 97 16 123/76 95 07/27/18 08:00 36.8 C 98 13 138/73 H 95 07/27/18 07:38 83 18 Intake & Output: Intake & Output 07/24/18 07/25/18 07/26/18 07/27/18 23:59 23:59 23:59 23:59 Intake Total 1350 2631 630 Output Total 1050 1150 Balance 1350 1581 -520 - Objective General Appearance: positive: Alert, Lethargic (hoarse, sitting up in bed, BiPap off to eat and to talk to me then puts it back on. no use of acessory muscles.) Eyes Bilateral: positive: PERRL, EOMI ENT: positive: Other (back of throat red, nasal) Neck: positive: No JVD. negative: Stiff neck, Carotid bruit Respiratory: positive: Chest non-tender, Wheezes. negative: Rales, Rhonchi Cardiovascular: positive: Regular rate & rhythm, Gallop/S4, Friction rub Abdomen: positive: Non-tender, No organomegaly, Nml bowel sounds, No distention Skin: positive: Warm, Diaphoresis, Pallor Extremities: positive: Non-tender, No pedal edema Neurologic/Psychiatric: positive: Oriented x3, CN's nml (2-12), Motor nml - Lab Results Fish Bones: 07/26/18 03:00 07/26/18 03:00 Other Labs: Lab Results x24hrs 07/27/18 07/26/18 07/26/18 Range/Units 07:35 20:34 19:45 POC Whole Bld Glucose 115 H 187 H (70 - 100) mg/dL Influenza A (Rapid) (Negative) Influenza B (Rapid) (Negative) RSV Rapid Negative (Negative) 07/26/18 07/26/18 07/26/18 Range/Units 19:45 16:40 11:45 POC Whole Bld Glucose 166 H 182 H (70 - 100) mg/dL Influenza A (Rapid) Negative (Negative) Influenza B (Rapid) Negative (Negative) RSV Rapid (Negative) Sepsis Event Note (H) - Evaluation Current Stage of Sepsis: Ruled out (Tachycardia secondary to nebulizers, leukocytosis secondary to steroids) Possible source of Sepsis: positive: Pulmonary Assessment/Plan - Problem List (1) Asthma exacerbation Impression: Patient was placed in ICU on first night of admission for use of BiPAP. She has been intermittently on and off BiPAP on 07/26 and last night. Still quite tight and wheezing with no real improvement yet. She is frustrated because she is not better Plan: Remain in ICU if has to use BiPAP Continue the steroids, antibiotics, nebulizers, Singulair, claritin. I have reviewed med list and no change other than increasing the frequency of her nebs from q2h prn to q1h prn. add azithromycin for atypicals. Qualifiers: Asthma severity: severe Asthma persistence: persistent Qualified Code(s): J45.51 - Severe persistent asthma with (acute) exacerbation (2) Community acquired pneumonia Impression: Day #3 levaquin. Blood cultures negative at 24 hours. Sputum culture is as yet uncollected since she is not able to provide phlegm yet. White cell count is elevated but is felt to be steroid induced leukocytosis. Plan: Continue antibiotics. No change in levaquin, add azithromycin. Qualifiers: Laterality: right Lung location: lower lobe of lung Qualified Code(s): J18.1 - Lobar pneumonia, unspecified organism (3) Lactic acidosis Impression: Resolved. secondary to asthma and low pH? Laboratory Tests 07/25/18 07/26/18 07/26/18 21:05 03:00 06:02 Lactic Acid 4.4 H* 2.6 H 2.0 (4) Hyperglycemia, drug-induced Impression: from steroids, Moderate dose SS insulin added to med list. Glucose 07/26 was 182, 166, 187. Glucose 07/27 is 115 Qualifiers: Qualified Code(s): J45.51 - Severe persistent asthma with (acute) exacerbation
[2018-07-27] MEDS: METOCLOPRAMIDE 10 MG/2 ML VIAL IVP PRN (16:37)
[2018-07-27] MEDS: SODIUM CHLORIDE FLUSH 0.9% 10 ML SYRINGE IVP PRN ×2 (16:37→18:05)
[2018-07-27] MEDS: MONTELUKAST 10 MG TABLET PO SCH (20:46)
[2018-07-27] MEDS: levoFLOXacin 750 MG/150 ML 750 MG/150 ML BAG IV SCH (20:46)
[2018-07-28] MEDS: LEVALBUTEROL 1.25 MG/3 ML NEB INH SCH ×16 (00:15→22:42)
[2018-07-28] MEDS: guaiFENesin/CODEINE 5 ML UDC PO PRN (00:56)
[2018-07-28] MEDS: METOCLOPRAMIDE 10 MG/2 ML VIAL IVP PRN (00:56)
[2018-07-28] MEDS: SODIUM CHLORIDE FLUSH 0.9% 10 ML SYRINGE IVP SCH ×4 (00:57→22:32)
[2018-07-28 05:04] LABS: BASOPHILS % (AUTO) 0.1 %; LYMPHOCYTES # (AUTO) 1.1 10^3/uL (1.5-3.5); LYMPHOCYTES % (AUTO) 5.2 %; MEAN CORPUSCULAR HEMOGLOBIN 28.8 pg (27.0-31.0); MEAN CORPUSCULAR HGB CONC 32.7 g/dL (32.0-36.0); MEAN CORPUSCULAR VOLUME 87.8 fL (81.0-99.0); MEAN PLATELET VOLUME 7.4 fL (7.9-10.8); MONOCYTES # (AUTO) 0.5 10^3/uL (0.0-1.0); MONOCYTES % (AUTO) 2.7 %; NEUTROPHILS # (AUTO) 18.6 10^3/uL (1.5-6.6); PLT - PLATELET COUNT 327 10^3/uL (130-450); RED BLOOD COUNT 4.18 10^6/uL (4.20-5.40); RED CELL DISTRIBUTION WIDTH 14.3 % (12.0-15.0); WHITE BLOOD COUNT 20.2 x10^3/uL (4.8-10.8)
[2018-07-28 05:11] LABS: CALCIUM 8.6 mg/dL (8.5-10.3); CREATININE 0.7 mg/dL (0.4-1.0)
[2018-07-28] MEDS: methylPREDNISolone SUCCINATE 125 MG/2 ML VIAL IVP SCH ×3 (06:31→22:32)
[2018-07-28] MEDS: SODIUM CHLORIDE FLUSH 0.9% 10 ML SYRINGE IVP PRN ×2 (06:32→14:23)
[2018-07-28] MEDS: BUDESONIDE 0.5 MG/2 ML NEB INH SCH ×2 (06:58→20:25)
[2018-07-28] MEDS: INSULIN ASPART 300 UNIT/3 ML PEN SUBQ SCH ×4 (07:58→20:52)
[2018-07-28] MEDS ORDERED: LEVALBUTEROL 1.25 MG/3 ML NEB INH PRN (08:16)
[2018-07-28] MEDS: OXYMETAZOLINE NASAL SPRAY NAS SCH ×2 (09:22→20:47)
[2018-07-28] MEDS: guaiFENesin 600 MG TABLET PO SCH ×2 (09:23→20:43)
[2018-07-28] MEDS: DOCUSATE SODIUM 250 MG CAPSULE PO SCH (09:23)
[2018-07-28] MEDS: LORATADINE 10 MG TABLET PO SCH (09:24)
[2018-07-28] MEDS: POLYETHYLENE GLYCOL 3350 17 GM PACKET PO SCH (09:24)
[2018-07-28] MEDS: IBUPROFEN 600 MG TABLET PO PRN ×3 (09:24→22:32)
[2018-07-28] MEDS: FAMOTIDINE 20 MG/2 ML VIAL IVP SCH ×2 (09:26→20:42)
[2018-07-28] MEDS: CHOLECALCIFEROL 1,000 UNIT TABLET PO SCH (09:30)
[2018-07-28] MEDS: FLUTICASONE NASAL SPRAY NAS SCH (09:30)
--- NOTE | 2018-07-28 10:56 | PROVIDER PROGRESS NOTE ---
Assessment/Plan - Problem List (1) Severe asthma with acute exacerbation Assessment/Plan: She still has bilateral scattered wheezes diffusely, but she describes ability to take a walk in hallway without feeling air hunger. I will add Mucinex for pulmonary toilet, continue nebs and steroids. She still used the BIPAP overnight, will cancel prn BIPAP use, to move her out of the ICU by tomorrow if possible. She plans to pickle cutter a new Nebulizer for use after this ARh, a prescription was already dropped off at [facility], she reports (2) Community acquired pneumonia Assessment/Plan: Continue antibiotics for a 7-10 day course. Watch for culture results to adjust antibiotic if needed. (3) Hyperglycemia, drug-induced Assessment/Plan: Continue fingerstick glu checks and coverage. Continue steroids, which caused this. (4) Nasal congestion with rhinorrhea Assessment/Plan: Will add Afrin spray bid, which will help with sinus stuffiness and post-nasal drip which stimulated her cough. (5) Nonalcoholic steatohepatitis (SHAW) Assessment/Plan: Follow LFTs intermittently. - Current Meds Current Meds: Current Medications Generic Name Dose Route Start Last Admin Trade Name Freq PRN Reason Stop Dose Admin Baclofen 10 mg 07/25/18 21:38 07/26/18 21:10 Lioresal PO 10 mg TID PRN Administration Cough Budesonide 0.5 mg 07/26/18 07:00 07/28/18 06:58 Pulmicort INH 0.5 mg RTBID MADELAINE Administration Cholecalciferol 1,000 unit 07/26/18 09:00 07/28/18 09:30 Vitamin D3 PO 1,000 unit DAILY MADELAINE Administration Docusate Sodium 250 - 500 mg 07/28/18 09:00 07/28/18 09:23 Colace 250mg Capsule PO 250 mg DAILY MADELAINE Administration Famotidine 20 mg 07/25/18 22:00 07/28/18 09:26 Pepcid IVP 20 mg BID MADELAINE Administration Fluticasone Propionate 0 sprays 07/26/18 09:00 07/28/18 09:30 Flonase OFE 2 spr DAILY MADELAINE Administration Guaifenesin 600 mg 07/28/18 09:00 07/28/18 09:23 Mucinex PO 600 mg BID MADELAINE Administration Guaifenesin/Codeine Phosphate 10 ml 07/25/18 20:47 07/28/18 00:56 Robitussin Ac PO 10 ml Q4HR PRN Administration Cough Levofloxacin 750 mg in 150 mls @ 100 mls/hr 07/25/18 21:00 07/27/18 22:17 Levaquin 750 Mg/150 Ml IV Infused Q24H MADELAINE Infusion Ibuprofen 600 mg 07/28/18 08:14 07/28/18 09:24 Motrin PO 600 mg Q6HR PRN Administration PAIN Insulin Aspart 1 - 9 unit 07/26/18 12:00 07/28/18 07:58 Novolog SUBQ Not Given 0800,1200,1700,2100 [facility] Protocol Levalbuterol HCl 1.25 mg 07/28/18 10:00 07/28/18 10:42 Xopenex INH 1.25 mg Q2HR MADELAINE Administration Loratadine 10 mg 07/26/18 09:00 07/28/18 09:24 Claritin PO 10 mg DAILY MADELAINE Administration Lorazepam 0.5 mg 07/26/18 00:43 07/26/18 17:42 Ativan SL 0.5 mg Q4HR PRN Administration Anxiety Methylprednisolone Sodium Succinate 80 mg 07/25/18 22:00 07/28/18 06:31 Solu-Medrol (125mg Vial) IVP 80 mg Q8HR MADELAINE Administration Metoclopramide HCl 10 mg 07/25/18 21:43 07/28/18 00:56 Reglan Inj IVP 10 mg Q6HR PRN Administration Nausea / Vomiting Montelukast Sodium 10 mg 07/25/18 21:00 07/27/18 20:46 Singulair PO 10 mg QPM MADELAINE Administration Oxycodone HCl 5 mg 07/25/18 23:07 07/27/18 14:27 Roxicodone PO 5 mg Q4HR PRN Administration PAIN Oxymetazoline HCl 2 sprays 07/28/18 09:00 07/28/18 09:22 Afrin OFE 2 sprays BID MADELAINE Administration Polyethylene Glycol 17 gm 07/26/18 09:00 07/28/18 09:24 Miralax PO 17 gm DAILY MADELAINE Administration Sodium Chloride 10 ml 07/25/18 20:39 07/28/18 06:32 Normal Saline Flush 0.9% IVP 10 ml PRN PRN Administration NEEDED PER PROVIDER ORDERS Sodium Chloride 10 ml 07/26/18 01:00 07/28/18 09:26 Normal Saline Flush 0.9% IVP 10 ml 0100,0900,1700 MADELAINE Administration - Lab Result Fish Bone Diagrams: 07/28/18 04:34 07/28/18 04:34 - Additional Planning My Orders: My Active Orders 07/28/18 08:14 Ibuprofen [Motrin] 600 mg PO Q6HR PRN 07/28/18 08:16 Levalbuterol [Xopenex] 1.25 mg INH Q4H PRN 07/28/18 09:00 Oxymetazoline [Afrin] 2 sprays OFE BID guaiFENesin [Mucinex] 600 mg PO BID 07/28/18 10:00 Levalbuterol [Xopenex] 1.25 mg INH Q2HR Subjective - Subjective Patient Reports: Cough, Other (Has pain in chest wall from coughing) Nursing Reports: Other (She was using BIPAP on and off thru the night prn) Objective Vital Signs: Vital Signs - 24 hr 07/27/18 07/27/18 07/27/18 10:57 11:04 12:30 Temperature Heart Rate 96 118 H Heart Rate [ 110 H Monitoring electrodes] Respiratory 18 Rate Blood Pressure 139/87 H [Left Brachial artery] O2 Saturation 97 07/27/18 07/27/18 07/27/18 12:31 12:46 14:08 Temperature 37.3 C Heart Rate 103 H 98 Heart Rate [ 112 H Monitoring electrodes] Respiratory 18 20 Rate Blood Pressure 121/78 [Left Brachial artery] O2 Saturation 97 07/27/18 07/27/18 07/27/18 14:09 15:48 16:00 Temperature Heart Rate 194 H 92 Heart Rate [ 88 Monitoring electrodes] Respiratory 18 15 14 Rate Blood Pressure 117/71 [Left Brachial artery] O2 Saturation 99 07/27/18 07/27/18 07/27/18 16:47 17:06 18:16 Temperature 36.4 C L Heart Rate 88 20 L Heart Rate [ 98 Monitoring electrodes] Respiratory 18 20 21 Rate Blood Pressure 117/58 L [Left Brachial artery] O2 Saturation 95 07/27/18 07/27/18 07/27/18 20:30 20:43 20:45 Temperature 37.2 C Heart Rate 107 H 83 Heart Rate [ 107 H Monitoring electrodes] Respiratory 20 20 Rate Blood Pressure 126/94 H [Left Brachial artery] O2 Saturation 95 07/27/18 07/28/18 07/28/18 22:30 00:56 01:00 Temperature 37.2 C Heart Rate 76 79 Heart Rate [ 75 Monitoring electrodes] Respiratory 20 18 15 Rate Blood Pressure 109/67 [Left Brachial artery] O2 Saturation 94 07/28/18 07/28/18 07/28/18 02:35 03:30 05:00 Temperature 37.1 C Heart Rate 71 66 Heart Rate [ 92 Monitoring electrodes] Respiratory 16 14 14 Rate Blood Pressure 125/89 H [Left Brachial artery] O2 Saturation 98 07/28/18 07/28/18 07/28/18 05:45 06:59 08:03 Temperature Heart Rate 69 78 82 Heart Rate [ Monitoring electrodes] Respiratory 16 18 17 Rate Blood Pressure [Left Brachial artery] O2 Saturation 07/28/18 07/28/18 08:52 10:43 Temperature 36.8 C Heart Rate 85 Heart Rate [ 96 Monitoring electrodes] Respiratory 14 20 Rate Blood Pressure 129/76 [Left Brachial artery] O2 Saturation 95 Oxygen O2 Source Room air I&O (Last 24 Hrs): Intake and Output Totals x24h 07/26/18 07/27/18 07/28/18 23:59 23:59 23:59 Intake Total 2631 2310 1420 Output Total 1050 2250 2595 Balance 1581 60 -1175 General: Alert HEENT: Mucous membr. moist/pink, Other (Orlin complexion. Hoarse voice and nasally.) Neck: Supple, No JVD Neuro: Non Focal Cardiovascular: Regular rate, No murmurs Respiratory: Wheezes, Other (Diffuse wheezing) Abdomen: Soft Extremities: No edema - Results Results: Laboratory Results WBC 20.2 x10^3/uL (4.8-10.8) H 07/28/18 04:34 RBC 4.18 10^6/uL (4.20-5.40) L 07/28/18 04:34 Hgb 12.0 g/dL (12.0-16.0) 07/28/18 04:34 Hct 36.7 % (37.0-47.0) L 07/28/18 04:34 MCV 87.8 fL (81.0-99.0) 07/28/18 04:34 MCH 28.8 pg (27.0-31.0) 07/28/18 04:34 MCHC 32.7 g/dL (32.0-36.0) 07/28/18 04:34 RDW 14.3 % (12.0-15.0) 07/28/18 04:34 Plt Count 327 10^3/uL (130-450) 07/28/18 04:34 MPV 7.4 fL (7.9-10.8) L 07/28/18 04:34 Neut # (Auto) 18.6 10^3/uL (1.5-6.6) H 07/28/18 04:34 Lymph # (Auto) 1.1 10^3/uL (1.5-3.5) L 07/28/18 04:34 Lane # (Auto) 0.5 10^3/uL (0.0-1.0) 07/28/18 04:34 Eos # (Auto) 0.0 10^3/uL (0.0-0.7) 07/28/18 04:34 Baso # (Auto) 0.0 10^3/uL (0.0-0.1) 07/28/18 04:34 Absolute Nucleated RBC 0.00 x10^3/uL 07/28/18 04:34 Nucleated RBC % 0.0 /100WBC 07/28/18 04:34 Sodium 134 mmol/L (135-145) L 07/28/18 04:34 Potassium 4.3 mmol/L (3.5-5.0) 07/28/18 04:34 Chloride 99 mmol/L (101-111) L 07/28/18 04:34 Carbon Dioxide 25 mmol/L (21-32) 07/28/18 04:34 Anion Gap 10.0 (6-13) 07/28/18 04:34 BUN 14 mg/dL (6-20) 07/28/18 04:34 Creatinine 0.7 mg/dL (0.4-1.0) 07/28/18 04:34 Estimated GFR (MDRD) 95 (>89) 07/28/18 04:34 Glucose 158 mg/dL (70-100) H 07/28/18 04:34 POC Whole Bld Glucose 127 mg/dL (70 - 100) H 07/28/18 07:27 Glycated Hemoglobin 6.1 % (4.6-6.2) 07/26/18 03:00 Estim Average Glucose 128 (70-100) H 07/26/18 03:00 Lactic Acid 2.0 mmol/L (0.5-2.2) 07/26/18 06:02 Calcium 8.6 mg/dL (8.5-10.3) 07/28/18 04:34 Total Bilirubin 0.7 mg/dL (0.2-1.0) 07/26/18 03:00 AST 51 IU/L (10-42) H 07/26/18 03:00 ALT 76 IU/L (10-60) H 07/26/18 03:00 Alkaline Phosphatase 52 IU/L (42-121) 07/26/18 03:00 Total Protein 7.3 g/dL (6.7-8.2) 07/26/18 03:00 Albumin 3.9 g/dL (3.2-5.5) 07/26/18 03:00 Globulin 3.4 g/dL (2.1-4.2) 07/26/18 03:00 Albumin/Globulin Ratio 1.1 (1.0-2.2) 07/26/18 03:00 Lipase 29 U/L (22-51) 07/25/18 19:38 Nasal Screen MRSA (PCR) NEGATIVE (NEGATIVE) 07/25/18 21:58 Influenza A (Rapid) Negative (Negative) 07/26/18 19:45 Influenza B (Rapid) Negative (Negative) 07/26/18 19:45 RSV Rapid Negative (Negative) 07/26/18 19:45 - Procedures Procedures: Procedures DESTRUCTION OF ENDOMETRIUM, ENDO (05/21/18) EXCISION OF DUODENUM, ENDO, DIAGN (05/08/16) EXTRACTION OF ENDOMETRIUM, VIA OPENING, DIAGN (05/21/18) INSPECTION OF UTERUS AND CERVIX, ENDO (05/21/18) RESECTION OF BILATERAL FALLOPIAN TUBES, PERC ENDO APPROACH (05/21/18) Sepsis Event Note (H) - Evaluation Current Stage of Sepsis: Ruled out (Tachycardia secondary to nebulizers, leukocytosis secondary to steroids) Possible source of Sepsis: positive: Pulmonary
[2018-07-28] MEDS: levoFLOXacin 750 MG/150 ML 750 MG/150 ML BAG IV SCH (20:43)
[2018-07-28] MEDS: MONTELUKAST 10 MG TABLET PO SCH (20:43)
[2018-07-29] MEDS: LEVALBUTEROL 1.25 MG/3 ML NEB INH SCH ×5 (01:24→10:25)
[2018-07-29] MEDS: methylPREDNISolone SUCCINATE 125 MG/2 ML VIAL IVP SCH (06:22)
[2018-07-29] MEDS: SODIUM CHLORIDE FLUSH 0.9% 10 ML SYRINGE IVP PRN (06:23)
[2018-07-29] MEDS: BUDESONIDE 0.5 MG/2 ML NEB INH SCH (07:15)
[2018-07-29] MEDS: IBUPROFEN 600 MG TABLET PO PRN (07:44)
[2018-07-29] MEDS: INSULIN ASPART 300 UNIT/3 ML PEN SUBQ SCH (07:45)
[2018-07-29] MEDS: CHOLECALCIFEROL 1,000 UNIT TABLET PO SCH (08:00)
[2018-07-29] MEDS: guaiFENesin 600 MG TABLET PO SCH (08:02)
[2018-07-29] MEDS: DOCUSATE SODIUM 250 MG CAPSULE PO SCH (08:02)
[2018-07-29] MEDS: LORATADINE 10 MG TABLET PO SCH (08:02)
[2018-07-29] MEDS: OXYMETAZOLINE NASAL SPRAY NAS SCH (08:05)
[2018-07-29] MEDS: FLUTICASONE NASAL SPRAY NAS SCH (08:05)
[2018-07-29] MEDS: FAMOTIDINE 20 MG/2 ML VIAL IVP SCH (08:07)
[2018-07-29] MEDS: POLYETHYLENE GLYCOL 3350 17 GM PACKET PO SCH (08:08)
[2018-07-29] MEDS: SODIUM CHLORIDE FLUSH 0.9% 10 ML SYRINGE IVP SCH (08:08)
--- NOTE | 2018-07-29 08:18 | Discharge Plan ---
Discharge Plan Disposition: Home, Self Care Condition: Fair Prescriptions: Azithromycin [Zithromax] 250 mg PO DAILY #4 guaiFENesin [Mucinex] 600 mg PO BID #14 tablet Insulin Aspart [NovoLOG] 1 - 9 unit SUBQ 0800,1200,1700,2100 #2 pen predniSONE [Prednisone] 20 mg PO DAILY #27 tablet Saccharomyces Boulardii [Florastor] 250 mg PO BID #8 capsule Diet: Diabetic Activity Restrictions: Activity as Tolerated Shower Restrictions: No Driving Restrictions: No Additional Instructions or Follow Up instructions: You were admitted with an asthmatic exacerbation and community acquired pneumonia. Please take the antibiotics and Flrastor (for bowel health) until they are done. Mucinex tablets to break up the phlegm were also prescribed. Take the Prednisone tablets on a slow tapering down schedule: 60 mg for 4 days, 40 mg for 4 days, 20 mg for 4 days, 10 mg for 4 days and 5 mg for 4 days, or as advised by your PCP or sod stripper/asthma provider. You are also being prescribed a month's worth of Insulin, to use while the steroid causes elevated glucose, and you should also follow a low carbohydrate diet. Resume your other pre-hospital medications. See your PCP in 5-10 days in follow-up. If you have new or worsening symptoms, call your PCP or come to the ER. No Smoking: If you smoke, Please STOP! Call for help.
[2018-07-29 09:31] VITALS: BP 126/83
--- NOTE | 2018-07-29 20:59 | DISCHARGE SUMMARY ---
Physician: Alicia Miguel MD DATE OF ADMISSION: 07/25/2018 DATE OF DISCHARGE: 07/29/2018 DATE OF ADMISSION: 07/25/2018 DATE OF DISCHARGE: 07/29/2018. HISTORY OF PRESENT ILLNESS: This is a 37-year-old white female, with a history of severe asthma since childhood with multiple admissions for this, eczema and SHAW, who presented to the hospital with a 7-day history of a viral URI for which she was on steroids that she stopped and her shortness of breath got worse, the productive cough got worse and she presented to the emergency room. She was found to have marked air hunger, 90% saturation on room air, tachycardic at a rate of 142 and was given iv Solu-Medrol high dose, nebulizers and still felt very much in distress. She had a lactic acid level of 4.4. She reported that she suffers from severe allergic asthma all her life and was previously on Xolair and was off this due to prior history of meningitis. She currently is followed by an admissions recruiter/learning manager at the [facility] for which she was on interleukin-5 antagonist that she gets subcutaneously. She is due next for this management on 08/10/2018. The patient was admitted for management of her acute asthmatic exacerbation, an infiltrate that was found on chest x- ray, and management of her sepsis. HOSPITAL COURSE AND DISCHARGE DIAGNOSES 1. Sepsis. The lactic acid level improved with the treatment of her underlying pneumonia and respiratory distress. 2. Severe asthma with acute exacerbation. The patient was on maximum doses of IV steroids (Solu-Medrol 125 mg IV q.8 hours), required nebulizer treatments every 1 hour, Robitussin p.r.n., and required BiPAP in the ICU for oxygenation and to improve air hunger. She had a very slow recovery and had continued wheezing until the day of discharge, 4 days after admission. 4. Community-acquired pneumonia. The patient was on empiric IV Levaquin and IV Zithromax. Sputum and blood cultures had no growth. She was transitioned to p.o. Zithromax for an additional 4 days at the time of discharge. 5. Hyperglycemia, drug induced. The patient has a history of elevations of glucoses when she is on steroid treatment. Her steroids require a very slow taper because of her significant asthma and reactive airway disease. The patient was on carbohydrate-controlled diet and sliding scale insulin while here and was discharged with a one-month supply of short-acting insulin and to manage this the way she has done in the past. 6. Nasal congestion with rhinorrhea. The patient reported postnasal drip and nasal congestion that stimulated her cough. She was kept on her Flonase nasal spray, but also Afrin nasal spray decongestant was used while here. 7. Nonalcoholic steatohepatitis (SHAW). Her LFTs were normal while here. LABORATORY AND IMAGING: Chest x-ray on admission showed a subtle right basilar infiltrate. Her lactic acid improved from 4.4, down to 2.6 four hours later, then was 2.0 by the following day. Her nasal screening was negative for MRSA. Her influenza A and B were both negative. ALLERGIES: PEANUTS, ATROVENT, TREE NUTS, WALNUTS, AMBIEN, SPIRIVA. MEDICATIONS AT TIME OF DISCHARGE 1. Albuterol q.4 hours. 2. Fasenar subcutaneous. 3. ProAir inhaler. 4. Multivitamin. 5. Dextromethorphan p.r.n. 6. Flonase spray daily. 7. Advair inhaler b.i.d. 8. Hydroxyzine 10 mg p.r.n. 9. Motrin 400 q.6 hours p.r.n. 10. Claritin 10 mg daily. 11. Singulair 10 mg every night. 12. Zithromax 250 mg daily x4 more days with Florastor 250 mg b.i.d. x4 more days 13. Mucinex 600 mg b.i.d. x4 more days. 14. Low-dose sliding scale insulin coverage for the next 3-4 weeks. 15. Xopenex inhaler q.4 hours p.r.n. 16. Prednisone 20 mg tablets with a plan for a taper: 60 mg x4 days, 40 mg x4 days, 20 mg x4 days, 10 mg x4 days, then 5 mg x4 days, then stop. CONDITION AT DISCHARGE: Stable. PHYSICAL EXAMINATION VITAL SIGNS: Blood pressure 126/80, heart rate 90 in sinus rhythm, afebrile, room air saturation 98%. HEENT: Unremarkable. NECK: Without JVD or carotid bruits. CHEST: Clear. Good air movement. No wheezes. HEART: Sounds normal. ABDOMEN: Soft. EXTREMITIES: No edema. NEUROLOGIC: Intact. FOLLOWUP: She knows to followup with her grassroots organizer on 08/10/2018. She is to see her PCP in the next 5-7 days for hospital followup. CODE STATUS: FULL CODE. Time required to complete this entire discharge, chart review, dictation: 30 minutes. cc: LAZARO , TD: 07/29/2018 19:43 [facility]
== END 2018-07-29 11:00 | disposition home or self-care (01) | DRG 871 ==
LOC: ED 19:13 → MS2 20:39 → ICU 21:23
PROVIDERS: ADMIT Family Medicine; ATTEND Internal Medicine
DX: A41.9 Sepsis, unspecified organism (principal); J18.1 Lobar pneumonia, unspecified organism; J45.51 Severe persistent asthma with (acute) exacerbation; E87.2 Acidosis; K75.81 Nonalcoholic steatohepatitis (NASH); R00.0 Tachycardia, unspecified; T48.6X5A Adverse effect of antiasthmatics, initial encounter; D72.828 Other elevated white blood cell count; R73.9 Hyperglycemia, unspecified; T38.0X5A Adverse effect of glucocorticoids and synthetic analogues, initial encounter; Y92.230 Patient room in hospital as the place of occurrence of the external cause; R09.81 Nasal congestion; L30.9 Dermatitis, unspecified; Z79.51 Long term (current) use of inhaled steroids; Z79.899 Other long term (current) drug therapy
CPT/HCPCS: 36415; 71045; 80048; 80053; 83036; 83605; 83690; 85025; 87040; 87070; 87150; 87205; 87275; 87276; 87280; 94640; 94660; 96365; 96375; 99283; 99291; A9270; J2765; J7626

== ENCOUNTER 2019-06-23 07:15 | Outpatient (CLI) | payer OTHER ==
[2019-06-23] MEDS ORDERED: GADOBUTROL 7.5 MMOL/7.5 ML VIAL ONE (08:03)
[2019-06-23] MEDS: GADOBUTROL 7.5 MMOL/7.5 ML VIAL IVP ONE (08:47)
--- NOTE | 2019-06-23 10:25 | MRI Report ---
Reason: WEAKNESS Procedure Date: 06/23/2019 Accession Number: [id number] / [id number] Procedure: MRI - Lumbar Spine W/WO CPT Code: Final Report FULL RESULT: EXAM: MRI LUMBAR SPINE WITHOUT AND WITH CONTRAST EXAM DATE: 06/23/2019 09:45 AM. CLINICAL HISTORY: 38-year-old woman with weakness and bowel and bladder incontinence for past couple months. COMPARISONS: LUMBAR SPINE W/O 12/22/2017 9:41 AM. TECHNIQUE: Multiplanar, multisequence T1-weighted and fluid-sensitive sequences of the lumbar spine from T12 to S1 before and after administration of intravenous contrast. Other: None. IV contrast: 7.5 cc GADAVIST. FINDINGS: Neurologic Structures: The conus terminates at T12-L1. The conus medullaris and cauda equina are unremarkable. No abnormal enhancement. Alignment: No significant scoliosis or spondylolisthesis. Bone Marrow: Five [id number] lumbar vertebral bodies are present. No gross fractures or bone lesions. No bone marrow replacement or abnormal enhancement. Disk Levels/Facets: T12-L1: There is mild disk desiccation and height loss. Left paracentral disk protrusion results in mild narrowing of the central canal and left lateral recess, unchanged from the 12/22/2017 exam. No significant neural foraminal narrowing. L1-L2: Unremarkable. L2-L3: Unremarkable. L3-L4: There is mild disk desiccation and height loss. No significant narrowing of the central canal or neural foramina. L4-L5: There is mild disk desiccation and height loss. Small broad-based disk bulge and facet hypertrophy result in moderate narrowing of the lateral recesses bilaterally, right side worse than left, without significant narrowing of the central canal overall, not significantly changed. Facet hypertrophy and disk in the subarticular spaces result in mild narrowing of the right neural foramen, unchanged. L5-S1: Unremarkable. Spinal Canal: No enhancing masses within the spinal canal. No epidural abscess. Musculature: Normal. No edema, abnormal enhancement, or fatty atrophy. Other: The visualized retroperitoneum is unremarkable. IMPRESSION: 1. Mild multilevel degenerative disk changes. 2. Degenerative changes result in the following: - T12-L1: Left paracentral disk protrusion results in mild narrowing of the central canal and left lateral recess, unchanged from 12/22/2017 exam. - L4-L5: Moderate narrowing of the lateral recesses bilaterally, right side worse than left, without significant narrowing of the central canal overall, unchanged. Mild narrowing of the right neural foramen, unchanged. Comment: The following findings are so common in adults without low back pain that while we report their presence, they must be interpreted with caution and in the context of the clinical situation. (Reference Melvin et al, Spine 2001) Prevalence of findings in patients without low back pain: Disk degeneration (any evidence): 92% Disk desiccation/T2 signal loss: 83% Disk height loss: 56% Disk bulge: 64% Disk protrusion: 32% Annular tear/high intensity zone: 38% RADIA
--- NOTE | 2019-06-23 10:31 | MRI Report ---
Reason: WEAKNESS Procedure Date: 06/23/2019 Accession Number: [id number] / [id number] Procedure: MRI - Thoracic Spine W/WO CPT Code: Final Report FULL RESULT: EXAM: MRI THORACIC SPINE WITHOUT AND WITH CONTRAST EXAM DATE: 06/23/2019 09:43 AM. CLINICAL HISTORY: 38-year-old woman with weakness and bladder and bowel incontinence for the past couple months. COMPARISONS: THORACIC SPINE W/O 12/22/2017 9:03 AM. TECHNIQUE: Multiplanar, multisequence T1-weighted and fluid-sensitive sequences of the thoracic spine from C7 to L1 before and after administration of intravenous contrast. Other: None. IV contrast: 7.5 cc GADAVIST. FINDINGS: Spinal Cord: Thoracic spinal cord is normal in caliber without signal abnormality. No abnormal enhancement. Alignment: No scoliosis or spondylolisthesis. Bone Marrow: No gross fractures or bone lesion. No bone marrow edema or abnormal enhancement. Disk spaces, central canal, and neural foramina: There is mild disk desiccation and height loss in the mid thoracic spine. Small broad-based disk bulge at T4-T5 is present without significant narrowing of the central canal, improved compared to the 12/22/2017 exam. Central canal is widely patent. No abnormal enhancement, mass lesion, or focal fluid collection. No significant neural foraminal narrowing. Musculature: Normal. No edema, enhancement, or fatty atrophy. Other: Limited evaluation of the chest and upper abdomen is unremarkable. IMPRESSION: 1. Mild degenerative disk changes in the mid thoracic spine without significant narrowing of the central canal or neural foramina. RADIA
== END 2019-06-23 07:16 | disposition home or self-care (01) ==
LOC: DI 07:15
PROVIDERS: ATTEND Internal Medicine
DX: M51.36 Other intervertebral disc degeneration, lumbar region (principal); M47.816 Spondylosis without myelopathy or radiculopathy, lumbar region; M51.25 Other intervertebral disc displacement, thoracolumbar region; M48.061 Spinal stenosis, lumbar region without neurogenic claudication; M51.35 Other intervertebral disc degeneration, thoracolumbar region; M48.05 Spinal stenosis, thoracolumbar region; M51.34 Other intervertebral disc degeneration, thoracic region; M48.04 Spinal stenosis, thoracic region
CPT/HCPCS: 72157; 72158; A9585

== ENCOUNTER 2019-06-29 08:47 | Outpatient (CLI) | payer OTHER ==
[2019-06-29] MEDS ORDERED: GADOBUTROL 7.5 MMOL/7.5 ML VIAL ONE (08:59)
[2019-06-29] MEDS ORDERED: GADOBUTROL 7.5 MMOL/7.5 ML VIAL IVP ONE (09:56)
--- NOTE | 2019-06-29 15:37 | MRI Report ---
Reason: WEAKNESS Procedure Date: 06/29/2019 Accession Number: [id number] / [id number] Procedure: MRI - Brain W/WO CPT Code: Final Report FULL RESULT: EXAM: MRI BRAIN WITHOUT AND WITH CONTRAST EXAM DATE: 06/29/2019 10:52 AM. CLINICAL HISTORY: 38-year-old female. WEAKNESS. History of meningitis 2011. Periodic left hand numbness. COMPARISON: BRAIN W/WO 01/22/2013 7:55 AM. TECHNIQUE: Multiplanar, multisequence T1-weighted and fluid-sensitive MR sequences of the brain were performed before and after administration of intravenous contrast. Sequences optimized for routine evaluation. Other: None. IV Contrast: 7.5 ML Gadavist FINDINGS: Brain Volume: Normal for age. Parenchyma: No acute hemorrhage, mass, or infarct. No white matter lesions identified. No abnormal enhancement. Ventricles/Cisterns: No hydrocephalus. No abnormal extra-axial fluid collection or hemorrhage. Cavum septum pellucidum et vergae, a benign anatomic variant. Orbits: Symmetric and unremarkable. Sella Turcica: The pituitary gland, cavernous sinuses, suprasellar cistern and optic chiasm are unremarkable. IAC: Symmetric and unremarkable. Vasculature: Normal signal flow void is seen in the major arterial structures at the skull base. The dural sinuses are patent and enhance normally. Sinuses: No acute sinus disease. Bones: No focal pathologic appearing marrow signal changes. Other: None. IMPRESSION: 1. Unremarkable brain MRI. RADIA
--- NOTE | 2019-06-29 15:50 | MRI Report ---
Reason: WEAKNESS Procedure Date: 06/29/2019 Accession Number: [id number] / [id number] Procedure: MRI - Cervical Spine W/WO CPT Code: Final Report FULL RESULT: EXAM: MRI CERVICAL SPINE WITHOUT AND WITH CONTRAST EXAM DATE: 06/29/2019 10:54 AM. CLINICAL HISTORY: Generalized weakness after having meningitis in 2011. Periodic left hand numbness. COMPARISON: CERVICAL SPINE MRI 01/20/2013 10:22 AM CERVICAL SPINE MRI 12/22/2017 8:16 AM. TECHNIQUE: Multiplanar, multisequence T1-weighted and fluid-sensitive sequences of the cervical spine before and after administration of intravenous contrast. Other: None. IV contrast: 7.5 cc Gadavist. FINDINGS: No suspicious marrow replacement is present in the cervical vertebral bodies. There is some motion artifact on the study. No abnormal T2 signal is present in the cervical spinal cord. No posterior interspinous ligament edema is present. No abnormal enhancement is seen within the cervical disk spaces or in the cervical spinal cord. No significant spondylolisthesis is present. C2-C3: Unremarkable C3-C4: A mild posterior disk protrusion is seen. There is some associated disk/osteophyte formation involving the left posterior lateral margin of the disk. There is left uncovertebral joint spurring. Mild to moderate left foraminal stenosis is stable. C4-C5: A mild posterior disk protrusion is seen. There is some associated disk/osteophyte formation involving the posterior lateral margin of the disk bilaterally. There is bilateral uncovertebral joint spurring greater on the left. Mild to moderate left foraminal stenosis is present. This is stable. C5-C6: A mild posterior disk protrusion is seen. There is some associated disk/osteophyte formation involving the posterior lateral margin of the disk bilaterally. Bilateral uncovertebral joint spurring is seen. Mild to moderate bilateral foraminal stenosis greater on the left relative to the right is unchanged. C6-C7: A mild shallow left-sided disk protrusion is seen. The disk/osteophyte complex is seen involving the left posterior lateral margin of the disk. There is uncovertebral joint spurring on the left. Mild to moderate left foraminal stenosis is present. C7-T1: No posterior disk protrusion. No stenosis. IMPRESSION: 1. Degenerative disk disease and osteophyte formation are seen from C3-C7. This is not significantly changed dating back to the more remote comparison study. 2. Again seen is mild to moderate left foraminal stenosis from C3-C7. There is mild to moderate right foraminal stenosis at C5-C6. 3. No central canal stenosis is present. 4. No abnormal signal is present in the cervical spinal cord. RADIA
== END 2019-06-29 08:48 | disposition home or self-care (01) ==
LOC: DI 08:47
PROVIDERS: ATTEND Internal Medicine
DX: M50.31 Other cervical disc degeneration, high cervical region (principal); M48.02 Spinal stenosis, cervical region; R53.1 Weakness
CPT/HCPCS: 70553; 72156; A9585

== ENCOUNTER 2019-06-30 20:43 | Emergency (ER) | payer OTHER ==
[2019-06-30 21:07] LABS: BILIRUBIN,URINE NEGATIVE (NEGATIVE); GLUCOSE, URINE (UA) NEGATIVE (NEGATIVE); KETONES,URINE (UA) NEGATIVE (NEGATIVE); LEUKOCYTE ESTERASE, URINE MODERATE (NEGATIVE); NITRITE,URINE POSITIVE (NEGATIVE); OCCULT BLOOD,URINE LARGE (NEGATIVE); PROTEIN,URINE 30 mg/dL (NEGATIVE); UROBILINOGEN,URINE 0.2 (NORMAL) E.U./dL (NORMAL)
[2019-06-30 21:13] LABS: BASOPHILS # (AUTO) 0.1 10^3/uL (0.0-0.1); BASOPHILS % (AUTO) 0.6 %; EOSINOPHILS # (AUTO) 0.4 10^3/uL (0.0-0.7); HGB - HEMOGLOBIN 13.6 g/dL (12.0-16.0); LYMPHOCYTES # (AUTO) 2.8 10^3/uL (1.5-3.5); LYMPHOCYTES % (AUTO) 22.3 %; MEAN CORPUSCULAR HEMOGLOBIN 28.6 pg (27.0-31.0); MEAN CORPUSCULAR HGB CONC 32.5 g/dL (32.0-36.0); MEAN CORPUSCULAR VOLUME 88.2 fL (81.0-99.0); MEAN PLATELET VOLUME 8.6 fL (7.9-10.8); MONOCYTES # (AUTO) 0.9 10^3/uL (0.0-1.0); MONOCYTES % (AUTO) 7.5 %; NEUTROPHILS # (AUTO) 8.3 10^3/uL (1.5-6.6); NEUTROPHILS % (AUTO) 66.2 %; PLT - PLATELET COUNT 391 10^3/uL (130-450); RED BLOOD COUNT 4.75 10^6/uL (4.20-5.40); RED CELL DISTRIBUTION WIDTH 12.7 % (12.0-15.0); WHITE BLOOD COUNT 12.5 x10^3/uL (4.8-10.8)
[2019-06-30 21:15] LABS: CLARITY,URINE HAZY (CLEAR)
[2019-06-30 21:17] LABS: BACTERIA,URINE Many /HPF (None Seen); HCG UR QUAL NEGATIVE; SQUAMOUS EPITHELIAL CELL,UR FEW Squamous (<= Few)
[2019-06-30 21:24] LABS: ALBUMIN 4.3 g/dL (3.2-5.5); ALBUMIN/GLOBULIN RATIO 1.2 (1.0-2.2); BILIRUBIN,TOTAL 0.5 mg/dL (0.2-1.0); CALCIUM 9.4 mg/dL (8.5-10.3); CREATININE 0.7 mg/dL (0.4-1.0); TOTAL PROTEIN 7.8 g/dL (6.7-8.2)
[2019-06-30] MEDS ORDERED: cefTRIAXone 1 GM VIAL IM STA (21:37)
--- NOTE | 2019-06-30 21:41 | ED Physician Documentation ---
History of Present Illness - Stated complaint Stated Complaint: FLANK PX/NAUSEA - Chief complaint Chief Complaint: Abd Pain - History obtained from History obtained from: Patient - History of Present Illness Improved by: NOTHING Worsened by: NOTHING - Additonal information Additional information: 38 YEAR OLD FEMALE PRESENTS TO THE EMERGENCY DEPARTMENT BECAUSE OF DYSURIA FOR ABOUT A WEEK. PATIENT WAS PLANNING ON GOING TO SEE A DOCTOR BUT DID NOT GET A CHANCE DUE TO BEING BUSY AT WORK. SHE REPORTED OF 1 DAY OF ABDOMINAL BLOATEDNESS (WHICH HAS HAPPENED TO HER BEFORE WHEN SHE GETS SICK). SHE DENIES FEVER OR CHILLS. SHE HAS NAUSEA WITHOUT VOMITING. SHE REPORTS OF 1 DAY OF RIGHT FLANK PAIN. SHE DENIES HEMATURIA. SHE IS CONCERNED FOR A POSSIBLE URINARY TRACT INFECTION. SHE DENIES OTHER ASSOCIATED SYMPTOMS. 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 : None HEENT: None Psych: None Musculoskeletal: Fatigue, Other Derm: Eczema - Past Surgical History Past Surgical History: Yes General: Cholecystectomy, Colonoscopy Ortho: Other /ACCOUNT GROUP SUPERVISOR: section - Present Medications Home Medications: Ambulatory Orders Medication Instructions Recorded Confirmed EPINEPHrine [Epipen 2-Jez] 0.3 mg IJ ONCE PRN #1 auto.injct 08/16/17 07/26/18 Albuterol 2.5 mg INH Q4H PRN 05/14/18 07/26/18 Albuterol Sulfate [Proair 2 puffs INH Q4H PRN 05/14/18 07/26/18 Respiclick] Benralizumab [Fasenra] 30 mg SQ .Q8W 05/14/18 07/26/18 Fluticasone [Flonase] 1 sprays OFE DAILY 05/14/18 07/26/18 Fluticasone/Salmeterol [Advair 1 puffs IH BID 05/14/18 07/26/18 500-50 Diskus] Montelukast [Singulair] 10 mg PO QPM 05/14/18 07/26/18 hydrOXYzine HCL [Hydroxyzine HCl] 10 mg PO DAILY PRN 05/14/18 07/26/18 Ca/D3/Mag Ox/Zinc/Dyer Helper/Griffin/Bor 1 each PO DAILY 07/26/18 07/26/18 [Calcium 763-E4-Dbqqmsgk Chw Tb] Dextroamphetamine/Amphetamine 5 mg PO DAILY PRN 07/26/18 07/26/18 [Adderall Xr 5 mg Capsule] Ibuprofen [Motrin] 400 mg PO Q6H PRN 07/26/18 07/26/18 Loratadine [Claritin] 10 mg PO DAILY 07/26/18 07/26/18 Turmeric Root Extract [Turmeric] 500 mg PO DAILY 07/26/18 07/26/18 Azithromycin [Zithromax] 250 mg PO DAILY #4 07/29/18 Insulin Aspart [NovoLOG] 1 - 9 unit SUBQ 07/29/18 0800,1200,1700,2100 #2 pen Levalbuterol [Xopenex] 1.25 mg INH RTQ4H PRN #60 neb 07/29/18 Saccharomyces Boulardii [Florastor] 250 mg PO BID #8 capsule 07/29/18 guaiFENesin [Mucinex] 600 mg PO BID #14 tablet 07/29/18 predniSONE [Prednisone] 20 mg PO DAILY #27 tablet 07/29/18 Cephalexin [Keflex] 500 mg PO Q6H 14 Days #56 capsule 06/30/19 - Allergies Allergies/Adverse Reactions: Allergies Allergy/AdvReac Type Severity Reaction Status Date / Time peanut Allergy Severe anaphalaxis Verified 06/30/19 20:46 ipratropium bromide * Allergy Intermediate Unknown Verified 06/30/19 20:46 [From Atrovent] tree nut Allergy Anaphylaxis Verified 06/30/19 20:46 walnut Allergy Anaphylaxis Verified 06/30/19 20:46 zolpidem tartrate * AdvReac Intermediate swelling Verified 06/30/19 20:46 [From Ambien] tiotropium AdvReac Respiratory Verified 06/30/19 20:46 [From Spiriva with HandiHaler] - Social History Does the pt smoke?: No Smoking Status: Never smoker Does the pt drink ETOH?: No Does the pt have substance abuse?: No - Immunizations Immunizations are current?: Yes - POLST Patient has POLST: No PD ED PE NORMAL - Vitals Vital signs reviewed: Yes - General General: Alert and oriented X 3 - HEENT HEENT: Atraumatic - Neck Neck: Supple, no meningeal sign, No bony TTP - Cardiac Cardiac: RRR - Respiratory Respiratory: No respiratory distress, Clear bilaterally - Abdomen Abdomen: Normal bowel sounds, Soft, Non tender, Non distended, Other (NO CVA TEN DERNESS TO PERCUSSION ON THE RIGHT. NO OBVIOUS DISTENTION NOTED. ) - Derm Derm: Normal color, Warm and dry - Extremities Extremities: No deformity, No tenderness to palpate - Neuro Neuro: Alert and oriented X 3, matcher leather parts 2-12 intact, No motor deficit, No sensory deficit Eye Opening: Spontaneous Motor: Obeys Commands Verbal: Oriented GCS Score: 15 Results - Vitals Vitals: Oxygen O2 Source Room air - Labs Labs: Microbiology 06/30/19 21:00 Urine Culture - Final Urine,Clean Catch Escherichia Coli Laboratory Tests 06/30/19 06/30/19 06/30/19 21:00 21:00 21:08 WBC 12.5 H RBC 4.75 Hgb 13.6 Hct 41.9 MCV 88.2 MCH 28.6 MCHC 32.5 RDW 12.7 Plt Count 391 MPV 8.6 Neut # (Auto) 8.3 H Lymph # (Auto) 2.8 [place] # (Auto) 0.9 Eos # (Auto) 0.4 Baso # (Auto) 0.1 Absolute Nucleated RBC 0.00 Nucleated RBC % 0.0 Sodium Potassium Chloride Carbon Dioxide Anion Gap BUN Creatinine Estimated GFR (MDRD) Glucose Calcium Total Bilirubin AST ALT Alkaline Phosphatase Total Protein Albumin Globulin Albumin/Globulin Ratio Lipase Urine Color YELLOW Urine Clarity HAZY Urine pH 6.0 Ur Specific [place] 1.025 1.025 Urine Protein 30 H Urine Glucose (UA) NEGATIVE Urine Ketones NEGATIVE Urine Occult Blood LARGE H Urine Nitrite POSITIVE H Urine Bilirubin NEGATIVE Urine Urobilinogen 0.2 (NORMAL) Ur Leukocyte Esterase MODERATE H Urine RBC 11-25 H Urine WBC 11-25 H Ur Squamous Epith Cells FEW Squamous Urine Bacteria Many H Ur Microscopic Review INDICATED Urine Culture Comments INDICATED Urine HCG, Qual NEGATIVE 06/30/19 21:08 WBC RBC Hgb Hct MCV MCH MCHC RDW Plt Count MPV Neut # (Auto) Lymph # (Auto) [place] # (Auto) Eos # (Auto) Baso # (Auto) Absolute Nucleated RBC Nucleated RBC % Sodium 137 Potassium 3.6 Chloride 101 Carbon Dioxide 26 Anion Gap 10.0 BUN 13 Creatinine 0.7 Estimated GFR (MDRD) 94 Glucose 108 H Calcium 9.4 Total Bilirubin 0.5 AST 32 ALT 45 Alkaline Phosphatase 54 Total Protein 7.8 Albumin 4.3 Globulin 3.5 Albumin/Globulin Ratio 1.2 Lipase 38 Urine Color Urine Clarity Urine pH Ur Specific [place] Urine Protein Urine Glucose (UA) Urine Ketones Urine Occult Blood Urine Nitrite Urine Bilirubin Urine Urobilinogen Ur Leukocyte Esterase Urine RBC Urine WBC Ur Squamous Epith Cells Urine Bacteria Ur Microscopic Review Urine Culture Comments Urine HCG, Qual PD MEDICAL DECISION MAKING - ED course Complexity details: reviewed results, re-evaluated patient, d/w patient ED course: 38 YEAR OLD FEMALE PRESENTS TO THE EMERGENCY DEPARTMENT BECAUSE OF DYSURIA, RIGHT FLANK PAIN WITHOUT HEMATURIA. SHE REPORTED OF CHILLS BUT WAS AFEBRILE. SHE REMAINED HEMODYNAMICALLY STABLE. SHE WAS SLIGHTLY TACHYCARDIAC. LABS WERE REVIEWED. MILD LEUKOCYTOSIS WAS NOTED. CREATININE FUNCTION IS NORMAL. UA WAS CONSISTENT WITH UTI AND CLINICAL PICTURE WAS CONSISTENT WITH ACUTE PYELONEPHRITIS. PATIENT WILL BE TREATED WITH A COURSE OF ABX. SHE WAS PRESCRIBED A 14 DAY COURSE OF KEFLEX. PATIENT WAS GIVEN IM ROCEPHIN HERE IN THE EMERGENCY DEPARTMENT. I DISCUSSED ABOUT IMAGING STUDY CT SCAN OF THE ABD/PEL WITHOUT CONTRAST REGARDING ABOUT ABDOMINAL DISTENTION AND TO RULE OUT FOR URETERAL STONE. AT THIS TIME, THE PATIENT WOULD LIKE TO DECLINE CT ABD/PEL. SHE REPORTED THE ABDOMINAL DISCOMFORT/ DISTENTION HAS HAPPENED BEFORE SHE GETS SICK. SHE WILL FOLLOW UP WITH CLOSE UP WITH PCP. STRICT RETURN INSTRUCTIONS WERE GIVEN. PATIENT WAS DISCHARGED IN STABLE CONDITION. Departure - Departure Disposition: 01 Home, Self Care Clinical Impression: Pyelonephritis Condition: Stable Instructions: ED Kidney Infec Female Follow-Up: ANI MACEDO MD [Primary Care Provider] - Within 3 Days Prescriptions: Cephalexin [Keflex] 500 mg PO Q6H 14 Days #56 capsule Comments: PLEASE FOLLOW UP WITH YOUR DOCTOR IN 3-5 DAYS FOR RECHECK. RETURN TO THE EMERGENCY DEPARTMENT IF YOU EXPERIENCE A FEVER OF 100.4 OR GREATER, WORSENING PAIN, UNCONTROLLED NAUSEA, VOMITING, DIZZINESS OR ANY NEW OR CONCERNING SYMPTOMS. Discharge Date/Time: 06/30/19 22:10
[2019-06-30] MEDS ORDERED: LIDOCAINE 1% 2 ML VIAL ONE (21:43)
[2019-06-30 21:55] VITALS: BP 116/87
== END 2019-06-30 22:10 | disposition home or self-care (01) ==
LOC: ED 20:43
DX: N12 Tubulo-interstitial nephritis, not specified as acute or chronic (principal)
CPT/HCPCS: 36415; 80053; 81001; 81003; 81025; 83690; 85025; 87086; 87181; 96372; 99283; 99284

== ENCOUNTER 2020-04-21 21:02 | Emergency (ER) | payer OTHER ==
--- NOTE | 2020-04-21 21:15 | ED Physician Documentation ---
PD HPI DYSPNEA - Stated complaint Stated Complaint: ASTHMA/SOA - Chief complaint Chief Complaint: Resp - History obtained from History obtained from: Patient - History of Present Illness Timing - onset: How many days ago (5-6) Timing - details: Gradual onset, Waxing and waning Pain level now: 3 Improved by: Rest Worsened by: Exertion Associated symptoms: Wheezing, Chest pain / discomfort (right-sided). No: Fever, Cough, Hemoptysis, Bilateral edema, Unilateral edema Similar symptoms before: Diagnosis (asthma) Recently seen: Clinic - Additional information Additional information: c/o 5-6 days dyspnea, chest tightness and wheezing c/w previous asthma exacerbations. She was evaluated at [facility] and has taken 4 days of 60mg PO QD prednisone without improvement (although she also says she does not feel particularly worse). She has required admission inpatient in the past for asthma exacerbations refractory to treatment in the ED. Review of Systems Constitutional: denies: Fever, Chills, Sweats Cardiac: reports: Chest pain / pressure. denies: Palpitations, Pedal edema Respiratory: reports: Dyspnea, Wheezing. 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: section - Present Medications Home Medications: Ambulatory Orders Medication Instructions Recorded Confirmed EPINEPHrine [Epipen 2-Jez] 0.3 mg IJ ONCE PRN #1 auto.injct 08/16/17 07/26/18 Albuterol 2.5 mg INH Q4H PRN 05/14/18 07/26/18 Albuterol Sulfate [Proair 2 puffs INH Q4H PRN 05/14/18 07/26/18 Respiclick] Benralizumab [Fasenra] 30 mg SQ .Q8W 05/14/18 07/26/18 Fluticasone [Flonase] 1 sprays OFE DAILY 05/14/18 07/26/18 Fluticasone/Salmeterol [Advair 1 puffs IH BID 05/14/18 07/26/18 500-50 Diskus] Montelukast [Singulair] 10 mg PO QPM 05/14/18 07/26/18 hydrOXYzine HCL [Hydroxyzine HCl] 10 mg PO DAILY PRN 05/14/18 07/26/18 Ca/D3/Mag Ox/Zinc/Hose Inspector And Patcher/Griffin/Bor 1 each PO DAILY 07/26/18 07/26/18 [Calcium 000-G5-Gafsmqns Chw Tb] Dextroamphetamine/Amphetamine 5 mg PO DAILY PRN 07/26/18 07/26/18 [Adderall Xr 5 mg Capsule] Ibuprofen [Motrin] 400 mg PO Q6H PRN 07/26/18 07/26/18 Loratadine [Claritin] 10 mg PO DAILY 07/26/18 07/26/18 Turmeric Root Extract [Turmeric] 500 mg PO DAILY 07/26/18 07/26/18 Azithromycin [Zithromax] 250 mg PO DAILY #4 07/29/18 Insulin Aspart [NovoLOG] 1 - 9 unit SUBQ 07/29/18 0800,1200,1700,2100 #2 pen Levalbuterol [Xopenex] 1.25 mg INH RTQ4H PRN #60 neb 07/29/18 Saccharomyces Boulardii [Florastor] 250 mg PO BID #8 capsule 07/29/18 guaiFENesin [Mucinex] 600 mg PO BID #14 tablet 07/29/18 predniSONE [Prednisone] 20 mg PO DAILY #27 tablet 07/29/18 Cephalexin [Keflex] 500 mg PO Q6H 14 Days #56 capsule 06/30/19 - Allergies Allergies/Adverse Reactions: Allergies Allergy/AdvReac Type Severity Reaction Status Date / Time peanut Allergy Severe anaphalaxis Verified 04/21/20 21:10 ipratropium bromide * Allergy Intermediate Unknown Verified 04/21/20 21:10 [From Atrovent] tree nut Allergy Anaphylaxis Verified 04/21/20 21:10 walnut Allergy Anaphylaxis Verified 04/21/20 21:10 zolpidem tartrate * AdvReac Intermediate swelling Verified 04/21/20 21:10 [From Ambien] tiotropium AdvReac Respiratory Verified 04/21/20 21:10 [From Spiriva with HandiHaler] - Social History Does the pt smoke?: No Smoking Status: Never smoker Does the pt drink ETOH?: No Does the pt have substance abuse?: No - Immunizations Immunizations are current?: Yes - POLST Patient has POLST: No PD ED PE NORMAL - Vitals Vital signs reviewed: Yes - General General: Alert and oriented X 3, Well developed/nourished, Other (appears mildly tachypneic ) - Neck Neck: Supple, no meningeal sign - Cardiac Cardiac: RRR, No murmur - Respiratory Respiratory: No respiratory distress, Other (mild bilateral end-expiratory wheeze) Results - Vitals Vitals: Oxygen O2 Source Room air - Labs Labs: Laboratory Tests 04/21/20 04/21/20 04/21/20 21:41 21:41 22:17 WBC 10.3 RBC 4.47 Hgb 13.4 Hct 41.0 MCV 91.7 MCH 30.0 MCHC 32.7 RDW 12.8 Plt Count 385 MPV 8.5 Neut # (Auto) 5.6 Lymph # (Auto) 3.7 H [place] # (Auto) 0.9 Eos # (Auto) 0.1 Baso # (Auto) 0.1 Absolute Nucleated RBC 0.00 Nucleated RBC % 0.0 Sodium 139 Potassium 3.6 Chloride 101 Carbon Dioxide 26 Anion Gap 12.0 BUN 17 Creatinine 1.0 Estimated GFR (MDRD) 62 L Glucose 103 H Calcium 9.0 Nasal Adenovirus (PCR) NOT DETECTED Nasal B. parapertussis DNA (PCR) NOT DETECTED Nasal Coronavir 229E PCR NOT DETECTED Nasal Coronavir HKU1 PCR NOT DETECTED Nasal Coronavir NL63 PCR NOT DETECTED Nasal Coronavir OC43 PCR NOT DETECTED Nasal Enterovir/Rhinovir PCR NOT DETECTED Nasal Influenza B PCR NOT DETECTED Nasal Influenza A PCR NOT DETECTED Nasal Parainfluen 1 PCR NOT DETECTED Nasal Parainfluen 2 PCR NOT DETECTED Nasal Parainfluen 3 PCR NOT DETECTED Nasal Parainfluen 4 PCR NOT DETECTED Nasal RSV (PCR) NOT DETECTED Nasal B.pertussis DNA PCR NOT DETECTED Nasal C.pneumoniae (PCR) NOT DETECTED Ofe Human Metapneumo PCR NOT DETECTED Nasal M.pneumoniae (PCR) NOT DETECTED Nasal SARS-CoV-2 (PCR) NOT DETECTED - Rads (name of study) chest xray Radiology: Prelim report reviewed, See rad report PD MEDICAL DECISION MAKING - ED course Complexity details: reviewed results, re-evaluated patient, considered differential, d/w patient Departure - Departure Disposition: 01 Home, Self Care Clinical Impression: Asthma Condition: Good Instructions: ED Reactive Airway Disease Follow-Up: ANI MACEDO MD [Primary Care Provider] - Within 3 Days Discharge Date/Time: 04/22/20 01:11
[2020-04-21] MEDS ORDERED: ALBUTEROL NEB 2.5 MG/3 ML INH STA (21:33)
[2020-04-21] MEDS ORDERED: methylPREDNISolone SUCCINATE 125 MG/2 ML VIAL IVP STA (21:33)
[2020-04-21] MEDS ORDERED: MAGNESIUM SULFATE 2 GRAM 2 GM/50 ML BAG IV ONE (21:34)
[2020-04-21 21:45] LABS: BASOPHILS # (AUTO) 0.1 10^3/uL (0.0-0.1); BASOPHILS % (AUTO) 0.8 %; EOSINOPHILS # (AUTO) 0.1 10^3/uL (0.0-0.7); EOSINOPHILS % (AUTO) 0.8 %; HGB - HEMOGLOBIN 13.4 g/dL (12.0-16.0); LYMPHOCYTES # (AUTO) 3.7 10^3/uL (1.5-3.5); LYMPHOCYTES % (AUTO) 35.8 %; MEAN CORPUSCULAR HGB CONC 32.7 g/dL (32.0-36.0); MEAN CORPUSCULAR VOLUME 91.7 fL (81.0-99.0); MEAN PLATELET VOLUME 8.5 fL (7.9-10.8); MONOCYTES # (AUTO) 0.9 10^3/uL (0.0-1.0); MONOCYTES % (AUTO) 8.2 %; NEUTROPHILS # (AUTO) 5.6 10^3/uL (1.5-6.6); NEUTROPHILS % (AUTO) 54.1 %; PLT - PLATELET COUNT 385 10^3/uL (130-450); RED BLOOD COUNT 4.47 10^6/uL (4.20-5.40); RED CELL DISTRIBUTION WIDTH 12.8 % (12.0-15.0); WHITE BLOOD COUNT 10.3 x10^3/uL (4.8-10.8)
[2020-04-21 23:18] LABS: C. PNEUMONIAE- RESP PCR PANEL NOT DETECTED
[2020-04-22 01:10] VITALS: BP 109/70
--- NOTE | 2020-04-22 11:56 | XRAY Report ---
PROCEDURE: Chest 2 View X-Ray INDICATIONS: dyspnea TECHNIQUE: 2 view(s) of the chest. COMPARISON: None. FINDINGS: Surgical changes and devices: None. Lungs and pleura: No pleural effusions or pneumothorax. Lungs are clear. Mediastinum: Mediastinal contours are normal. Heart size is normal. Bones and chest wall: No suspicious bony abnormalities. Soft tissues appear unremarkable. IMPRESSION: No acute cardiopulmonary abnormality. Findings concur with preliminary interpretation. Reviewed by: Froylan Garcia on 04/22/2020 11:54 AM [facility] Approved by: Froylan Garcia on 04/22/2020 11:54 AM [facility] Station ID: [id number]
== END 2020-04-22 01:11 | disposition home or self-care (01) ==
LOC: ED 21:02
DX: J45.909 Unspecified asthma, uncomplicated (principal); Z20.828 Contact with and (suspected) exposure to other viral communicable diseases
CPT/HCPCS: 0202U; 71046; 80048; 85025; 94640; 96365; 96375; 99283; 99284; 36415

== ENCOUNTER 2020-04-30 17:30 | Emergency (ER) | payer OTHER ==
[2020-04-30] MEDS ORDERED: ONDANSETRON 4 MG/2 ML VIAL IVP STA (18:43)
--- NOTE | 2020-04-30 18:43 | ED Physician Documentation ---
History of Present Illness - Stated complaint Stated Complaint: WEAK, BLURRY VISION, TINGLING HANDS & FACE - Chief complaint Chief Complaint: General - History obtained from History obtained from: Patient - Additonal information Additional information: 39-year-old woman with past medical history of asthma currently on a steroid taper for the past 3 weeks, last dose yesterday presents with weakness, head tingling wheeze of dizziness and palpitations while driving today associated with nausea. At this time she had a sudden onset episode and pulled over to the side of the road. It passed and then she was able to get out of the car and walk around but then had a recurrent episode where she had loss of vision and severe dizziness. Patient states that she had been feeling normal earlier in this, with the exception that her abdomen is distended after being on steroids. She does endorse some mild epigastric and right quadrant discomfort that she says always happens after taking a steroid course.Denies fevers, diarrhea, vomiting. She has nauseous at present. Review of Systems Ten Systems: 10 systems reviewed and negative Constitutional: reports: Myalgias, Fatigue. 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: section - Present Medications Home Medications: Ambulatory Orders Medication Instructions Recorded Confirmed EPINEPHrine [Epipen 2-Jez] 0.3 mg IJ ONCE PRN #1 auto.injct 08/16/17 07/26/18 Albuterol 2.5 mg INH Q4H PRN 05/14/18 07/26/18 Albuterol Sulfate [Proair 2 puffs INH Q4H PRN 05/14/18 07/26/18 Respiclick] Benralizumab [Fasenra] 30 mg SQ .Q8W 05/14/18 07/26/18 Fluticasone [Flonase] 1 sprays OFE DAILY 05/14/18 07/26/18 Fluticasone/Salmeterol [Advair 1 puffs IH BID 05/14/18 07/26/18 500-50 Diskus] Montelukast [Singulair] 10 mg PO QPM 05/14/18 07/26/18 hydrOXYzine HCL [Hydroxyzine HCl] 10 mg PO DAILY PRN 05/14/18 07/26/18 Ca/D3/Mag Ox/Zinc/Chargeback Specialist/Griffin/Bor 1 each PO DAILY 07/26/18 07/26/18 [Calcium 645-F3-Tkpwrtiy Chw Tb] Dextroamphetamine/Amphetamine 5 mg PO DAILY PRN 07/26/18 07/26/18 [Adderall Xr 5 mg Capsule] Ibuprofen [Motrin] 400 mg PO Q6H PRN 07/26/18 07/26/18 Loratadine [Claritin] 10 mg PO DAILY 07/26/18 07/26/18 Turmeric Root Extract [Turmeric] 500 mg PO DAILY 07/26/18 07/26/18 Azithromycin [Zithromax] 250 mg PO DAILY #4 07/29/18 Insulin Aspart [NovoLOG] 1 - 9 unit SUBQ 07/29/18 0800,1200,1700,2100 #2 pen Levalbuterol [Xopenex] 1.25 mg INH RTQ4H PRN #60 neb 07/29/18 Saccharomyces Boulardii [Florastor] 250 mg PO BID #8 capsule 07/29/18 guaiFENesin [Mucinex] 600 mg PO BID #14 tablet 07/29/18 predniSONE [Prednisone] 20 mg PO DAILY #27 tablet 07/29/18 Cephalexin [Keflex] 500 mg PO Q6H 14 Days #56 capsule 06/30/19 - Allergies Allergies/Adverse Reactions: Allergies Allergy/AdvReac Type Severity Reaction Status Date / Time peanut Allergy Severe anaphalaxis Verified 04/30/20 17:42 ipratropium bromide * Allergy Intermediate Unknown Verified 04/30/20 17:42 [From Atrovent] tree nut Allergy Anaphylaxis Verified 04/30/20 17:42 walnut Allergy Anaphylaxis Verified 04/30/20 17:42 zolpidem tartrate * AdvReac Intermediate swelling Verified 04/30/20 17:42 [From Ambien] tiotropium AdvReac Respiratory Verified 04/30/20 17:42 [From Spiriva with HandiHaler] - Social History Does the pt smoke?: No Smoking Status: Never smoker Does the pt drink ETOH?: No Does the pt have substance abuse?: No - Immunizations Immunizations are current?: Yes - POLST Patient has POLST: No PD ED PE NORMAL - Vitals Vital signs reviewed: Yes - General General: Alert and oriented X 3 - HEENT HEENT: Atraumatic, PERRL, EOMI - Neck Neck: Supple, no meningeal sign - Cardiac Cardiac: RRR - Respiratory Respiratory: No respiratory distress, Clear bilaterally - Abdomen Abdomen: Non tender, Other (discomfort to RUQ palpation) - Female Female : Deferred - Rectal Rectal: Deferred - Back Back: No spinal TTP - Derm Derm: Normal color, Warm and dry - Extremities Extremities: No deformity - Neuro Neuro: Alert and oriented X 3, maintainer central 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 2-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, No motor deficit, No sensory deficit, Normal speech - Psych Psych: Normal mood, Normal affect Results - Vitals Vitals: Vital Signs - 24 hr 04/30/20 17:38 Temperature 36.7 C Heart Rate 105 H Respiratory 20 Rate Blood Pressure 155/90 H O2 Saturation 99 Oxygen O2 Source Room air - Labs Labs: Laboratory Tests 04/30/20 04/30/20 04/30/20 18:30 18:40 18:40 WBC 14.6 H RBC 4.43 Hgb 13.5 Hct 41.1 MCV 92.8 MCH 30.5 MCHC 32.8 RDW 13.1 Plt Count 362 MPV 8.6 Neut # (Auto) 9.6 H Lymph # (Auto) 3.3 [place] # (Auto) 1.0 Eos # (Auto) 0.3 Baso # (Auto) 0.1 Absolute Nucleated RBC 0.00 Nucleated RBC % 0.0 Sodium 137 Potassium 3.9 Chloride 101 Carbon Dioxide 24 Anion Gap 12.0 BUN 12 Creatinine 0.7 Estimated GFR (MDRD) 94 Glucose 110 H Calcium 8.5 Total Bilirubin 0.4 AST 25 ALT 34 Alkaline Phosphatase 52 Troponin I High Sens Total Protein 6.7 Albumin 3.5 Globulin 3.2 Albumin/Globulin Ratio 1.1 Lipase 52 H Urine HCG, Qual NEGATIVE 04/30/20 18:40 WBC RBC Hgb Hct MCV MCH MCHC RDW Plt Count MPV Neut # (Auto) Lymph # (Auto) [place] # (Auto) Eos # (Auto) Baso # (Auto) Absolute Nucleated RBC Nucleated RBC % Sodium Potassium Chloride Carbon Dioxide Anion Gap BUN Creatinine Estimated GFR (MDRD) Glucose Calcium Total Bilirubin AST ALT Alkaline Phosphatase Troponin I High Sens < 2.3 L Total Protein Albumin Globulin Albumin/Globulin Ratio Lipase Urine HCG, Qual PD MEDICAL DECISION MAKING - ED course ED course: 39-year-old woman presents status post steroid taper with vague symptoms including a presyncopal episode. We will conduct a medical work-up to evaluate further. Patient endorsed to Dr. Nava for further work-up.
--- NOTE | 2020-04-30 18:49 | XRAY Report ---
PROCEDURE: Chest 1 View X-Ray INDICATIONS: palpitations, possible syncope TECHNIQUE: One view of the chest was acquired. COMPARISON: 04/21/2020 FINDINGS: Surgical changes and devices: None. Lungs and pleura: No pleural effusions or pneumothorax. Lungs are clear. Mediastinum: Mediastinal contours appear normal. Heart size is normal. Bones and chest wall: No suspicious bony lesions. Overlying soft tissues appear unremarkable. IMPRESSION: Stable examination of the chest. No acute cardiopulmonary abnormalities. Reviewed by: Amrit Odell MD on 04/30/2020 6:47 PM [facility] Approved by: Amrit Odell MD on 04/30/2020 6:47 PM [facility] Station ID: [id number]
--- NOTE | 2020-04-30 18:51 | CT Report ---
PROCEDURE: HEAD WO INDICATIONS: lightheaded, vision change TECHNIQUE: Noncontrast 4.5 mm thick angled axial sections acquired from the foramen magnum to the vertex. For r adiation dose reduction, the following was used: automated exposure control, adjustment of mA and/or kV according to patient size. COMPARISON: MRI brain dated 06/29/2019. FINDINGS: Image quality: Excellent. CSF spaces: Basal cisterns are patent. No extra-axial fluid collections. Ventricles are normal in size and shape. Brain: No midline shift. No intracranial masses or hemorrhage. Valle-white matter interface is norm al. Skull and face: Calvarium and visualized facial bones are intact, without suspicious lesions. Sinuses: Visualized sinuses and mastoids are clear. IMPRESSION: CT head without acute intracranial abnormalities. No mass or mass effect. Reviewed by: Amrit Odell MD on 04/30/2020 6:50 PM [facility] Approved by: Amrit Odell MD on 04/30/2020 6:50 PM [facility] Station ID: [id number]
[2020-04-30 18:54] LABS: BASOPHILS # (AUTO) 0.1 10^3/uL (0.0-0.1); BASOPHILS % (AUTO) 0.5 %; EOSINOPHILS # (AUTO) 0.3 10^3/uL (0.0-0.7); EOSINOPHILS % (AUTO) 2.1 %; HGB - HEMOGLOBIN 13.5 g/dL (12.0-16.0); LYMPHOCYTES # (AUTO) 3.3 10^3/uL (1.5-3.5); LYMPHOCYTES % (AUTO) 22.8 %; MEAN CORPUSCULAR HEMOGLOBIN 30.5 pg (27.0-31.0); MEAN CORPUSCULAR HGB CONC 32.8 g/dL (32.0-36.0); MEAN CORPUSCULAR VOLUME 92.8 fL (81.0-99.0); MEAN PLATELET VOLUME 8.6 fL (7.9-10.8); MONOCYTES % (AUTO) 7.1 %; NEUTROPHILS # (AUTO) 9.6 10^3/uL (1.5-6.6); PLT - PLATELET COUNT 362 10^3/uL (130-450); RED BLOOD COUNT 4.43 10^6/uL (4.20-5.40); RED CELL DISTRIBUTION WIDTH 13.1 % (12.0-15.0); WHITE BLOOD COUNT 14.6 x10^3/uL (4.8-10.8)
[2020-04-30 18:56] LABS: HCG UR QUAL NEGATIVE
[2020-04-30 19:05] LABS: ALBUMIN 3.5 g/dL (3.2-5.5); ALBUMIN/GLOBULIN RATIO 1.1 (1.0-2.2); BILIRUBIN,TOTAL 0.4 mg/dL (0.2-1.0); CALCIUM 8.5 mg/dL (8.5-10.3); CREATININE 0.7 mg/dL (0.4-1.0); TOTAL PROTEIN 6.7 g/dL (6.7-8.2)
[2020-04-30 19:52] VITALS: BP 126/82
== END 2020-04-30 19:55 | disposition home or self-care (01) ==
LOC: ED 17:30
DX: R55 Syncope and collapse (principal); R53.1 Weakness; R42 Dizziness and giddiness; R00.2 Palpitations; R11.0 Nausea; R10.11 Right upper quadrant pain; J45.909 Unspecified asthma, uncomplicated
CPT/HCPCS: 36415; 70450; 80053; 81025; 83690; 84484; 85025; 93005; 96374; 99284

== ENCOUNTER 2020-05-07 19:58 | Emergency (ER) | payer OTHER ==
[2020-05-07 20:46] LABS: BASOPHILS # (AUTO) 0.1 10^3/uL (0.0-0.1); BASOPHILS % (AUTO) 0.5 %; EOSINOPHILS # (AUTO) 0.4 10^3/uL (0.0-0.7); EOSINOPHILS % (AUTO) 3.2 %; HGB - HEMOGLOBIN 13.2 g/dL (12.0-16.0); LYMPHOCYTES # (AUTO) 2.6 10^3/uL (1.5-3.5); LYMPHOCYTES % (AUTO) 22.7 %; MEAN CORPUSCULAR HEMOGLOBIN 29.8 pg (27.0-31.0); MEAN CORPUSCULAR HGB CONC 32.3 g/dL (32.0-36.0); MEAN CORPUSCULAR VOLUME 92.3 fL (81.0-99.0); MEAN PLATELET VOLUME 9.1 fL (7.9-10.8); MONOCYTES # (AUTO) 0.8 10^3/uL (0.0-1.0); MONOCYTES % (AUTO) 6.6 %; NEUTROPHILS # (AUTO) 7.6 10^3/uL (1.5-6.6); PLT - PLATELET COUNT 311 10^3/uL (130-450); RED BLOOD COUNT 4.43 10^6/uL (4.20-5.40); RED CELL DISTRIBUTION WIDTH 13.1 % (12.0-15.0); WHITE BLOOD COUNT 11.5 x10^3/uL (4.8-10.8)
[2020-05-07 20:55] LABS: ALBUMIN 3.8 g/dL (3.2-5.5); ALBUMIN/GLOBULIN RATIO 1.2 (1.0-2.2); BILIRUBIN,TOTAL 0.5 mg/dL (0.2-1.0); CALCIUM 8.7 mg/dL (8.5-10.3); CREATININE 0.7 mg/dL (0.4-1.0); TOTAL PROTEIN 6.9 g/dL (6.7-8.2)
[2020-05-07] MEDS ORDERED: SODIUM CHLORIDE 0.9% 1,000 ML IV STA (21:12)
--- NOTE | 2020-05-07 21:21 | ED Physician Documentation ---
PD HPI SYNCOPE - Stated complaint Stated Complaint: DIZZY, NAUSEA,SHAKING - Chief complaint Chief Complaint: Neuro - History obtained from History obtained from: Patient - Additional information Additional information: Patient comes emergency department for chief complaint of near syncope. She states that she has been feeling lightheaded on and off for the last week since being seen in the emergency department a week ago for the same. At that time, patient has been on a course of steroids for her asthma and was just finishing up. She had been found to be bloated and thinks her liver was acting up from the steroids, though her liver labs at that time were normal. Extensive work-up with labs and CT scan was unremarkable except for a mildly elevated white blood cell count. The patient was discharged home at that time. She followed up with her primary care physician and did some maneuvers for potential vertigo, though the patient maintains that her symptoms all along have been more of a lightheaded, near syncopal variety, not a false movement-type of sensation. Patient states that sitting up or turning her head certain ways does cause the sense of lightheadedness. She states she get a sense of tightness throughout her neck and around the top and front of the head and that she then feels lightheaded. Patient states she occasionally has a ringing in her right ear. No ear pain. No headache. No fevers or chills. She has been nauseated intermittently, but has not vomited. No neck pain or limited movement due to spinal pain. No head injury. Patient states she has not been in any medications for vertigo. Patient denies shortness of breath or chest pain. She states that she was very tired on Friday, which was 4 days ago and slept pretty much all day. She states she felt a little better the next day and by Friday, was feeling quite well. Then, she began to feel a little tired again yesterday and had the same lightheaded sensation and today was even worse. She states when she began to feel the lightheadedness coming on this evening, she went out in the hot tub and then nearly fainted. The patient states that all of her symptoms come and go and that she does not have continuous symptoms of any kind. The patient does note that she had viral viral, atypical meningitis in 2011 and that some of her symptoms feel similar. She states she had initially been seen in the emergency department and did not have definitive diagnosis, and ultimately ended up going to [facility] in [place] and had a lumbar puncture there. No other neurologic or cardiac issues. No other complaints at this time. Patient states that right now she has a slight tight feeling in her forehead, but is not feeling lightheaded laying down in the bed. Review of Systems Ten Systems: 10 systems reviewed and negative Constitutional: reports: Reviewed and negative Eyes: reports: Reviewed and negative Ears: reports: Drainage/discharge (watery), Tinnitus/ringing. denies: Loss of hearing, Ear pain Nose: reports: Reviewed and negative Throat: reports: Reviewed and negative Cardiac: reports: Reviewed and negative Respiratory: reports: Reviewed and negative GI: reports: Reviewed and negative : reports: Reviewed and negative Skin: reports: Reviewed and negative Musculoskeletal: reports: Reviewed and negative Neurologic: reports: Numbness (none currently; brief episode whole hand and forearm 4 days ago), Near syncope, Headache (tension in head) Psychiatric: reports: Reviewed and negative Endocrine: reports: Reviewed and negative Immunocompromised: reports: Reviewed and negative PD PAST MEDICAL HISTORY - Past Medical History Past Medical History: Yes Cardiovascular: None Respiratory: Asthma Neuro: Migraines Endocrine/Autoimmune: None GI: Other CREMATOR: 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 - Past Surgical History Past Surgical History: Yes General: Cholecystectomy, Colonoscopy Ortho: Other /CREMATOR: section, Other - Present Medications Home Medications: Ambulatory Orders Medication Instructions Recorded Confirmed EPINEPHrine [Epipen 2-Jez] 0.3 mg IJ ONCE PRN #1 auto.injct 08/16/17 07/26/18 Albuterol 2.5 mg INH Q4H PRN 05/14/18 07/26/18 Albuterol Sulfate [Proair 2 puffs INH Q4H PRN 05/14/18 07/26/18 Respiclick] Benralizumab [Fasenra] 30 mg SQ .Q8W 05/14/18 07/26/18 Fluticasone [Flonase] 1 sprays OFE DAILY 05/14/18 07/26/18 Fluticasone/Salmeterol [Advair 1 puffs IH BID 05/14/18 07/26/18 500-50 Diskus] Montelukast [Singulair] 10 mg PO QPM 05/14/18 07/26/18 hydrOXYzine HCL [Hydroxyzine HCl] 10 mg PO DAILY PRN 05/14/18 07/26/18 Ca/D3/Mag Ox/Zinc/Block Mason/Griffin/Bor 1 each PO DAILY 07/26/18 07/26/18 [Calcium 357-O6-Devmyspl Chw Tb] Dextroamphetamine/Amphetamine 5 mg PO DAILY PRN 07/26/18 07/26/18 [Adderall Xr 5 mg Capsule] Ibuprofen [Motrin] 400 mg PO Q6H PRN 07/26/18 07/26/18 Loratadine [Claritin] 10 mg PO DAILY 07/26/18 07/26/18 Turmeric Root Extract [Turmeric] 500 mg PO DAILY 07/26/18 07/26/18 Azithromycin [Zithromax] 250 mg PO DAILY #4 07/29/18 Insulin Aspart [NovoLOG] 1 - 9 unit SUBQ 07/29/18 0800,1200,1700,2100 #2 pen Levalbuterol [Xopenex] 1.25 mg INH RTQ4H PRN #60 neb 07/29/18 Saccharomyces Boulardii [Florastor] 250 mg PO BID #8 capsule 07/29/18 guaiFENesin [Mucinex] 600 mg PO BID #14 tablet 07/29/18 predniSONE [Prednisone] 20 mg PO DAILY #27 tablet 07/29/18 Cephalexin [Keflex] 500 mg PO Q6H 14 Days #56 capsule 06/30/19 - Allergies Allergies/Adverse Reactions: Allergies Allergy/AdvReac Type Severity Reaction Status Date / Time peanut Allergy Severe anaphalaxis Verified 05/07/20 20:09 ipratropium bromide * Allergy Intermediate Unknown Verified 05/07/20 20:09 [From Atrovent] tree nut Allergy Anaphylaxis Verified 05/07/20 20:09 walnut Allergy Anaphylaxis Verified 05/07/20 20:09 zolpidem tartrate * AdvReac Intermediate swelling Verified 05/07/20 20:09 [From Ambien] tiotropium AdvReac Respiratory Verified 05/07/20 20:09 [From Spiriva with HandiHaler] - Social History Does the pt smoke?: No Smoking Status: Never smoker Does the pt drink ETOH?: Yes Does the pt have substance abuse?: No - Immunizations Immunizations are current?: Yes - POLST Patient has POLST: No PD ED PE NORMAL - Vitals Vital signs reviewed: Yes - General General: Alert and oriented X 3, No acute distress (The patient appears anxious, but is in otherwise no apparent distress), Well developed/nourished - HEENT HEENT: Atraumatic, PERRL, EOMI, Ears normal, Moist mucous membranes - Neck Neck: Supple, no meningeal sign, No bony TTP, No adenopathy, Other - Cardiac Cardiac: RRR, No murmur, Strong equal pulses - Respiratory Respiratory: No respiratory distress, Clear bilaterally - Abdomen Abdomen: Soft, Other (Mild distention, mild right upper and lower quadrant tenderness no rebound or guarding.) - Back Back: No spinal TTP - Derm Derm: Normal color, Warm and dry, No rash - Extremities Extremities: No deformity, No edema, No calf tenderness / cord - Neuro Neuro: Alert and oriented X 3, 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 and 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 2-12 intact, No motor deficit, No sensory deficit, Normal speech - Psych Psych: Normal affect, Other (Mildly anxious.) Results - Vitals Vitals: Vital Signs - 24 hr 05/07/20 05/07/20 05/07/20 20:10 22:30 23:55 Temperature 36.9 C 36.9 C Heart Rate 100 98 86 Respiratory 16 20 16 Rate Blood Pressure 144/85 H 119/74 117/62 O2 Saturation 100 98 100 Oxygen O2 Source Room air - EKG (time done) 2122 Rate: Rate (enter#) (78) Rhythm: NSR [place]: Normal Intervals: Normal DC QRS: Normal Ischemia: Normal ST segments Compare to prior EKG: Unchanged from prior EKG Computer interpretation: Agree with computer - Labs Labs: Laboratory Tests 05/07/20 05/07/20 05/07/20 20:29 20:29 20:29 WBC 11.5 H RBC 4.43 Hgb 13.2 Hct 40.9 MCV 92.3 MCH 29.8 MCHC 32.3 RDW 13.1 Plt Count 311 MPV 9.1 Neut # (Auto) 7.6 H Lymph # (Auto) 2.6 [place] # (Auto) 0.8 Eos # (Auto) 0.4 Baso # (Auto) 0.1 Absolute Nucleated RBC 0.00 Nucleated RBC % 0.0 ESR 10 Sodium 138 Potassium 3.7 Chloride 103 Carbon Dioxide 23 Anion Gap 12.0 BUN 12 Creatinine 0.7 Estimated GFR (MDRD) 94 Glucose 177 H Calcium 8.7 Total Bilirubin 0.5 AST 31 ALT 46 Alkaline Phosphatase 48 C-Reactive Protein Total Protein 6.9 Albumin 3.8 Globulin 3.1 Albumin/Globulin Ratio 1.2 Urine Color Urine Clarity Urine pH Ur Specific [place] Urine Protein Urine Glucose (UA) Urine Ketones Urine Occult Blood Urine Nitrite Urine Bilirubin Urine Urobilinogen Ur Leukocyte Esterase Urine RBC Urine WBC Ur Squamous Epith Cells Amorphous Sediment Urine Bacteria Ur Microscopic Review Urine Culture Comments Urine HCG, Qual Urine Opiates Screen Ur Oxycodone Screen Urine Methadone Screen Ur Propoxyphene Screen Ur Barbiturates Screen Ur Tricyclics Screen Ur Phencyclidine Scrn Ur Amphetamine Screen U Methamphetamines Scrn U Benzodiazepines Scrn Urine Cocaine Screen U Cannabinoids Screen 05/07/20 05/07/20 20:29 22:08 WBC RBC Hgb Hct MCV MCH MCHC RDW Plt Count MPV Neut # (Auto) Lymph # (Auto) [place] # (Auto) Eos # (Auto) Baso # (Auto) Absolute Nucleated RBC Nucleated RBC % ESR Sodium Potassium Chloride Carbon Dioxide Anion Gap BUN Creatinine Estimated GFR (MDRD) Glucose Calcium Total Bilirubin AST ALT Alkaline Phosphatase C-Reactive Protein 2.6 H Total Protein Albumin Globulin Albumin/Globulin Ratio Urine Color YELLOW Urine Clarity HAZY Urine pH 7.5 Ur Specific [place] 1.020 Urine Protein NEGATIVE Urine Glucose (UA) NEGATIVE Urine Ketones NEGATIVE Urine Occult Blood NEGATIVE Urine Nitrite NEGATIVE Urine Bilirubin NEGATIVE Urine Urobilinogen 0.2 (NORMAL) Ur Leukocyte Esterase NEGATIVE Urine RBC None Seen Urine WBC 0-3 Ur Squamous Epith Cells RARE Squamous Amorphous Sediment Few Urine Bacteria None Seen Ur Microscopic Review INDICATED Urine Culture Comments NOT INDICATED Urine HCG, Qual NEGATIVE Urine Opiates Screen NEGATIVE Ur Oxycodone Screen NEGATIVE Urine Methadone Screen NEGATIVE Ur Propoxyphene Screen NEGATIVE Ur Barbiturates Screen NEGATIVE Ur Tricyclics Screen NEGATIVE Ur Phencyclidine Scrn NEGATIVE Ur Amphetamine Screen NEGATIVE U Methamphetamines Scrn NEGATIVE U Benzodiazepines Scrn NEGATIVE Urine Cocaine Screen NEGATIVE U Cannabinoids Screen NEGATIVE PD MEDICAL DECISION MAKING - ED course Complexity details: reviewed old records, reviewed results, re-evaluated patient, considered differential, d/w patient ED course: The patient was worked up with labs and EKG, which were largely unremarkable. The patient had a slightly elevated white blood cell count of 11.6, which was lower than her white blood cell count 1 week ago. Her ESR was negative. CRP was mildly elevated at 2.6. I did spend quite a bit of time talking with this patient and addressing her concern over the possibility of viral meningitis. The patient does not have any symptoms that are either typical or even less common only associated with viral meningitis. She has not had any fever, headache, or nausea. I have discussed with her that we can certainly do a lumbar puncture, given her previous history of somewhat similar symptoms with aseptic meningitis, but that this really would be unlikely to change analyst 1 week into symptoms. The patient Would likely benefit from wearing an event monitor, which she can set up with her primary care physician. She was also told previously that she had some findings concerning for MS, but never did follow-up on this with neurology. I discussed with her that it would be beneficial for her to speak with her primary care physician about the possibility of neurology referral again. Departure - Departure Disposition: 01 Home, Self Care Clinical Impression: Near syncope, Vertigo, Tension headache, Viral syndrome Condition: Stable Instructions: ED Near Syncope Unkn Comments: Your tests overall look good. Your white blood cell count is very slightly elevated, but this is significantly improved over last weekend's results. We have also done 2 sets of inflammatory markers on your blood work. One is normal and the other one is mildly elevated. This could be for a variety of reasons, but with the history of questionable MS, it is very important that you follow-up with neurology to determine whether you have an ongoing neurological process. Your CT scan of the head last weekend was unremarkable, and this is unlikely to have changed in the interim. You do not have any of the typical or even the less common symptoms of meningitis, even viral or aseptic. At this time, there is no emergent indication for lumbar puncture in the emergency department tonight. We have offered this, given your history, but it would be unlikely to change analyst. If you develop headache, fever, or severe's spinal pain in your neck, please return to the emergency department. Please see your primary doctor tomorrow to discuss wearing an event monitor to further evaluate your near fainting episodes, and also, to discuss being referred back to neurology. Please continue to drink plenty of fluids and use the Zofran as needed. Discharge Date/Time: 05/07/20 23:56
[2020-05-07 22:18] LABS: BILIRUBIN,URINE NEGATIVE (NEGATIVE); GLUCOSE, URINE (UA) NEGATIVE (NEGATIVE); KETONES,URINE (UA) NEGATIVE (NEGATIVE); LEUKOCYTE ESTERASE, URINE NEGATIVE (NEGATIVE); MUDS CUTOFF CONCENTRATIONS CUTOFF CONC BELOW:; NITRITE,URINE NEGATIVE (NEGATIVE); OCCULT BLOOD,URINE NEGATIVE (NEGATIVE); PH,URINE 7.5 PH (5.0-7.5); PROTEIN,URINE NEGATIVE (NEGATIVE); UROBILINOGEN,URINE 0.2 (NORMAL) E.U./dL (NORMAL)
[2020-05-07 22:23] LABS: CLARITY,URINE HAZY (CLEAR); HCG UR QUAL NEGATIVE
[2020-05-07 22:29] LABS: RBC,URINE None Seen /HPF (0-5)
[2020-05-07 22:30] LABS: AMORPHOUS SEDIMENT,UR Few /LPF; BACTERIA,URINE None Seen /HPF (None Seen); SQUAMOUS EPITHELIAL CELL,UR RARE Squamous (<= Few)
[2020-05-07 22:32] LABS: AMPHETAMINE SCREEN,URINE NEGATIVE (NEGATIVE); BENZODIAZEPINES SCREEN, URINE NEGATIVE (NEGATIVE); COCAINE SCREEN URINE NEGATIVE (NEGATIVE); METHADONE SCREEN, URINE NEGATIVE (NEGATIVE); METHAMPHETAMINES SCREEN, URINE NEGATIVE (NEGATIVE); OPIATE SCREEN, URINE NEGATIVE (NEGATIVE); OXYCODONE SCREEN, URINE NEGATIVE (NEGATIVE); PROPOXYPHENE SCREEN, URINE NEGATIVE (NEGATIVE); TRICYCLIC ANTIDEPRESSANT,URINE NEGATIVE (NEGATIVE)
[2020-05-07 23:55] VITALS: BP 117/62
== END 2020-05-07 23:56 | disposition home or self-care (01) ==
LOC: ED 19:58
DX: B34.9 Viral infection, unspecified (principal); G44.209 Tension-type headache, unspecified, not intractable; R55 Syncope and collapse
CPT/HCPCS: 80053; 80306; 81001; 81003; 81025; 85025; 85651; 86140; 87086; 93005; 99284; 99285

== ENCOUNTER 2020-06-07 12:31 | Emergency (ER) | payer OTHER ==
[2020-06-07] MEDS ORDERED: predniSONE 20 MG TABLET PO STA (12:52)
[2020-06-07] MEDS ORDERED: SODIUM CHLORIDE INHALATION 3 ML NEB INH STA (13:10)
[2020-06-07] MEDS ORDERED: RACEPINEPHRINE 2.25% NEB INH STA (13:10)
--- NOTE | 2020-06-07 14:17 | ED Physician Documentation ---
History of Present Illness - Stated complaint Stated Complaint: ALLERGIC REACTION - Chief complaint Chief Complaint: Allergic Rx - History obtained from History obtained from: Patient - History of Present Illness Timing: Today Pain level max: 0 Pain level now: 0 - Additonal information Additional information: Patient is a 39-year-old female who presents to the emergency department stating that she accidentally ate a pecan today. Had a hives initially as well as tightness in her throat. She took 75 mg of Benadryl and used her albuterol inhaler 6-8 times. She also used an epinephrine pen. Patient states that she feels better overall but is still having some tightness in her throat. No stridor or wheezing. No fevers. No chills. Better with epinephrine, Benadryl and albuterol. Nothing makes it worse. 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 : None HEENT: None Psych: None Musculoskeletal: Fatigue, Other Derm: Eczema - Past Surgical History Past Surgical History: Yes General: Cholecystectomy, Colonoscopy Ortho: Other /CAUSTIC ROOM OPERATOR: section, Other - Present Medications Home Medications: Ambulatory Orders Medication Instructions Recorded Confirmed EPINEPHrine [Epipen 2-Jez] 0.3 mg IJ ONCE PRN #1 auto.injct 08/16/17 07/26/18 Albuterol 2.5 mg INH Q4H PRN 05/14/18 07/26/18 Albuterol Sulfate [Proair 2 puffs INH Q4H PRN 05/14/18 07/26/18 Respiclick] Benralizumab [Fasenra] 30 mg SQ .Q8W 05/14/18 07/26/18 Fluticasone [Flonase] 1 sprays OFE DAILY 05/14/18 07/26/18 Fluticasone/Salmeterol [Advair 1 puffs IH BID 05/14/18 07/26/18 500-50 Diskus] Montelukast [Singulair] 10 mg PO QPM 05/14/18 07/26/18 hydrOXYzine HCL [Hydroxyzine HCl] 10 mg PO DAILY PRN 05/14/18 07/26/18 Ca/D3/Mag Ox/Zinc/Architecture Department Chair/Griffin/Bor 1 each PO DAILY 07/26/18 07/26/18 [Calcium 270-S2-Fclwlfoe Chw Tb] Dextroamphetamine/Amphetamine 5 mg PO DAILY PRN 07/26/18 07/26/18 [Adderall Xr 5 mg Capsule] Ibuprofen [Motrin] 400 mg PO Q6H PRN 07/26/18 07/26/18 Loratadine [Claritin] 10 mg PO DAILY 07/26/18 07/26/18 Turmeric Root Extract [Turmeric] 500 mg PO DAILY 07/26/18 07/26/18 Azithromycin [Zithromax] 250 mg PO DAILY #4 07/29/18 Insulin Aspart [NovoLOG] 1 - 9 unit SUBQ 07/29/18 0800,1200,1700,2100 #2 pen Levalbuterol [Xopenex] 1.25 mg INH RTQ4H PRN #60 neb 07/29/18 Saccharomyces Boulardii [Florastor] 250 mg PO BID #8 capsule 07/29/18 guaiFENesin [Mucinex] 600 mg PO BID #14 tablet 07/29/18 predniSONE [Prednisone] 20 mg PO DAILY #27 tablet 07/29/18 cephALEXin [Keflex] 500 mg PO Q6H 14 Days #56 capsule 06/30/19 - Allergies Allergies/Adverse Reactions: Allergies Allergy/AdvReac Type Severity Reaction Status Date / Time peanut Allergy Severe anaphalaxis Verified 06/07/20 12:38 ipratropium bromide * Allergy Intermediate Unknown Verified 06/07/20 12:38 [From Atrovent] tree nut Allergy Anaphylaxis Verified 06/07/20 12:38 walnut Allergy Anaphylaxis Verified 06/07/20 12:38 zolpidem tartrate * AdvReac Intermediate swelling Verified 06/07/20 12:38 [From Ambien] tiotropium AdvReac Respiratory Verified 06/07/20 12:38 [From Spiriva with HandiHaler] - Social History Does the pt smoke?: No Smoking Status: Never smoker Does the pt drink ETOH?: Yes Does the pt have substance abuse?: No - Immunizations Immunizations are current?: Yes - POLST Patient has POLST: No PD ED PE NORMAL - Vitals Vital signs reviewed: Yes - General General: Alert and oriented X 3, No acute distress - HEENT HEENT: Moist mucous membranes, Pharynx benign, Other (Mild stridor.) - Neck Neck: Supple, no meningeal sign - Cardiac Cardiac: RRR, Strong equal pulses - Respiratory Respiratory: No respiratory distress, Clear bilaterally - Derm Derm: Warm and dry - Neuro Neuro: Alert and oriented X 3 - Psych Psych: Normal mood, Normal affect Results - Vitals Vitals: Vital Signs - 24 hr 06/07/20 06/07/20 12:34 13:22 Temperature 36.0 C L Heart Rate 92 86 Respiratory 16 14 Rate Blood Pressure 136/80 H O2 Saturation 99 Oxygen O2 Source Room air PD MEDICAL DECISION MAKING - ED course Complexity details: re-evaluated patient, considered differential, d/w patient ED course: 39-year-old female presents to the emergency department with an allergic reaction to nuts today. She was given steroids and racemic epinephrine here. Symptoms resolved. Patient monitored with no further progression of symptoms. 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 We will continue this for the next several days. Patient counseled regarding signs and symptoms for which I believe and urgent re-evaluation would be necessary. Patient with good understanding of and agreement to plan and is comfortable going home at this time This document was made in part using voice recognition software. While efforts are made to proofread this document, sound alike and grammatical errors may occur. Departure - Departure Disposition: 01 Home, Self Care Clinical Impression: Allergic reaction Qualifiers: Encounter type: initial encounter Qualified Code(s): T78.40XA - Allergy, unspecified, initial encounter Condition: Good Instructions: ED Allergic Reaction General Other Follow-Up: ANI MACEDO MD [Primary Care Provider] - As Needed Comments: Continue on steroids for the next 2 to 3 days. Return if you worsen. Follow-up with your doctor for further care.
[2020-06-07 14:25] VITALS: BP 136/75
== END 2020-06-07 14:25 | disposition home or self-care (01) ==
LOC: ED 12:31
DX: T78.40XA Allergy, unspecified, initial encounter (principal)
CPT/HCPCS: 94640; 99283; 99284; J7512

== ENCOUNTER 2020-12-06 12:22 | Emergency (ER) | payer OTHER ==
--- NOTE | 2020-12-06 12:42 | ED Physician Documentation ---
History of Present Illness - Stated complaint Stated Complaint: RT EYE SWELLING - Chief complaint Chief Complaint: Heent - Additonal information Additional information: 40-year-old female presents the emergency department for evaluation of worsening right eye swelling and right eye pain. She reports that the swelling began yesterday afternoon. She presented to ophthalmology at [facility] and was prescribed Augmentin for suspected periorbital cellulitis. Despite taking 2 doses of this medication she has had increased swelling and now pain. She endorses some blurry vision but no loss of vision. No history of similar in the past. Past medical history is most significant for asthma well-controlled with Dupixent and an inhaler. Non-smoker. Does not wear corrective lenses. Review of Systems Constitutional: denies: Fever, Chills Eyes: reports: Decreased vision, Other (right eye pain with movement) Ears: reports: Reviewed and negative Nose: reports: Reviewed and negative Throat: reports: Reviewed and negative Cardiac: reports: Reviewed and negative Respiratory: reports: Reviewed and negative GI: reports: Reviewed and negative : reports: Reviewed and negative Skin: reports: Reviewed and negative Musculoskeletal: reports: Reviewed and negative PD PAST MEDICAL HISTORY - Past Medical History Cardiovascular: None Respiratory: Asthma Neuro: Migraines Endocrine/Autoimmune: None GI: Other DIRECTOR OF FINANCIAL REPORTING: None : None HEENT: None Psych: None Musculoskeletal: Fatigue, Other Derm: Eczema - Past Surgical History Past Surgical History: Yes General: Cholecystectomy, Colonoscopy Ortho: Other /DIRECTOR OF FINANCIAL REPORTING: section, Other - Present Medications Home Medications: Ambulatory Orders Medication Instructions Recorded Confirmed EPINEPHrine [Epipen 2-Jez] 0.3 mg IJ ONCE PRN #1 auto.injct 08/16/17 12/06/20 Albuterol 2.5 mg INH Q4H PRN 05/14/18 12/06/20 Albuterol Sulfate [Proair 2 puffs INH Q4H PRN 05/14/18 12/06/20 Respiclick] Fluticasone [Flonase] 1 sprays OFE DAILY 05/14/18 12/06/20 Fluticasone/Salmeterol [Advair 1 puffs IH BID 05/14/18 12/06/20 500-50 Diskus] hydrOXYzine HCL [Hydroxyzine HCl] 10 mg PO PRN PRN 05/14/18 12/06/20 Ca/D3/Mag Ox/Zinc/Aws Software Development Engineer/Griffin/Bor 1 each PO DAILY 07/26/18 12/06/20 [Calcium 103-V4-Jvlkjyus Chw Tb] Ibuprofen [Motrin] 400 mg PO Q6H PRN 07/26/18 12/06/20 Loratadine [Claritin] 10 mg PO DAILY 07/26/18 12/06/20 Turmeric Root Extract [Turmeric] 500 mg PO DAILY 07/26/18 12/06/20 Amox/Clav 875/125 [Augmentin] 1 each PO Q12H #20 tablet 12/06/20 Dupilumab [Dupixent Pen] 1 mg INJ ONCE 12/06/20 12/06/20 - Allergies Allergies/Adverse Reactions: Allergies Allergy/AdvReac Type Severity Reaction Status Date / Time peanut Allergy Severe anaphalaxis Verified 12/06/20 12:28 ipratropium bromide * Allergy Intermediate Unknown Verified 12/06/20 12:28 [From Atrovent] tree nut Allergy Anaphylaxis Verified 12/06/20 12:28 walnut Allergy Anaphylaxis Verified 12/06/20 12:28 zolpidem tartrate * AdvReac Intermediate swelling Verified 12/06/20 12:28 [From Ambien] tiotropium AdvReac Respiratory Verified 12/06/20 12:28 [From Spiriva with HandiHaler] - Social History Does the pt smoke?: No Smoking Status: Never smoker Does the pt drink ETOH?: Yes Does the pt have substance abuse?: No - Immunizations Immunizations are current?: Yes - POLST Patient has POLST: No PD ED PE EXPANDED - General General: Alert, No acute distress - HEENT HEENT: Atraumatic, PERRL, EOMI, Pharynx normal, Other (Positive tenderness with light palpation of the eye. Extraocular movements incite pain in the right eye.) - Eyes Eyes: Right eye (Generalized swelling of the right upper and lower lids with associated erythema and mild induration extending to the eyebrow and laterally to the cheek), Exudate (Yellow exudate.) - Neck Neck: Supple w/out meningeal sx. No: No tenderness - Cardiac Cardiac: Regular Rate, Radial strong equal, Cap refill < 2 sec - Respiratory Respiratory: Clear to ausultation олег. No: Distress, Labored - Abdomen Abdomen: Normal Bowel sounds. No: Tender to palpation - Extremities Extremities: Normal. No: Deformity, Tenderness - Neuro Neuro: Alert and Oriented X 3, CNII-XII intact - GCS Eye Opening: Spontaneous Motor: Obeys Commands Verbal: Oriented Total: 15 Results - Vitals Vitals: Vital Signs - 24 hr 12/06/20 12:28 Temperature 36.5 C Heart Rate 76 Respiratory 16 Rate Blood Pressure 111/76 O2 Saturation 100 Oxygen O2 Source Room air - Labs Labs: Laboratory Tests 12/06/20 12/06/20 12:48 12:48 WBC 6.8 RBC 4.88 Hgb 14.5 Hct 44.1 MCV 90.4 MCH 29.7 MCHC 32.9 RDW 12.6 Plt Count 406 MPV 8.8 Neut # (Auto) 4.0 Lymph # (Auto) 2.1 [place] # (Auto) 0.5 Eos # (Auto) 0.2 Baso # (Auto) 0.1 Absolute Nucleated RBC 0.00 Nucleated RBC % 0.0 Sodium 136 Potassium 4.0 Chloride 104 Carbon Dioxide 23 Anion Gap 9.0 BUN 9 Creatinine 0.7 Estimated GFR (MDRD) 93 Glucose 91 Calcium 9.8 Total Bilirubin 0.7 AST 41 ALT 52 Alkaline Phosphatase 56 C-Reactive Protein < 1.0 Total Protein 8.4 H Albumin 4.8 Globulin 3.6 Albumin/Globulin Ratio 1.3 Lipase 39 - Rads (name of study) CT max/fac Radiology: Final report received (Right preseptal periorbital soft tissue cellulitis with no evidence of abscess. No post septal or intraorbital cellulitis identified.) PD MEDICAL DECISION MAKING - ED course Complexity details: reviewed results, re-evaluated patient, d/w patient ED course: 40-year-old female presents the emergency department for evaluation of worsening erythema swelling around her right eye. Diagnosed with preseptal cellulitis yesterday at ophthalmology [facility]. Was started on Augmentin. First dose taken this a.m. Screening labs do not show any worrisome abnormalities. No CRP elevation or leukocytosis. Given some minimal pain with eye movement concern was for orbital cellulitis and a CT was performed but does not show any findings of orbital cellulitis. I discussed with the patient the option of transitioning to a different antibiotic such as clindamycin or increasing her dose of Au gmentin to 875/125 (currently rx 500/125) Patient at this time prefers to remain on the Augmentin. She is advised warm compress to the facial area for 10 minutes 3 times a day. Emergent return precautions were discussed for worsening signs of infection. Departure - Departure Disposition: 01 Home, Self Care Clinical Impression: Preseptal cellulitis of right eye Condition: Stable Record reviewed to determine appropriate education?: Yes Prescriptions: Amox/Clav 875/125 [Augmentin] 1 each PO Q12H #20 tablet Comments: Aranza your labs today are essentially normal. We did do a CT of your head to evaluate for the possibility of infection behind the eye. This is called orbital cellulitis. Reassuringly the CT scan does not show any findings of orbital cellulitis. Let's keep you on the Augmentin but increase the dose to 875/125. Please fill this prescription and take the next dose tonight. Please discard your old Augmentin prescription. I would like you to place a warm compress on your right eye for 10 minutes 3 times a day. Ibuprofen or Tylenol as appropriate for pain or discomfort. If at any point you feel that your symptoms are worsening, you develop fevers or develop severe eye pain then please return to the ER for a second look.
[2020-12-06 12:55] LABS: BASOPHILS # (AUTO) 0.1 10^3/uL (0.0-0.1); BASOPHILS % (AUTO) 0.9 %; EOSINOPHILS # (AUTO) 0.2 10^3/uL (0.0-0.7); EOSINOPHILS % (AUTO) 3.2 %; HCT - HEMATOCRIT 44.1 % (37.0-47.0); HGB - HEMOGLOBIN 14.5 g/dL (12.0-16.0); LYMPHOCYTES # (AUTO) 2.1 10^3/uL (1.5-3.5); LYMPHOCYTES % (AUTO) 30.2 %; MEAN CORPUSCULAR HEMOGLOBIN 29.7 pg (27.0-31.0); MEAN CORPUSCULAR HGB CONC 32.9 g/dL (32.0-36.0); MEAN CORPUSCULAR VOLUME 90.4 fL (81.0-99.0); MEAN PLATELET VOLUME 8.8 fL (7.9-10.8); MONOCYTES # (AUTO) 0.5 10^3/uL (0.0-1.0); MONOCYTES % (AUTO) 7.2 %; NEUTROPHILS % (AUTO) 58.2 %; PLT - PLATELET COUNT 406 10^3/uL (130-450); RED BLOOD COUNT 4.88 10^6/uL (4.20-5.40); RED CELL DISTRIBUTION WIDTH 12.6 % (12.0-15.0); WHITE BLOOD COUNT 6.8 x10^3/uL (4.8-10.8)
[2020-12-06 13:19] LABS: ALBUMIN 4.8 g/dL (3.2-5.5); ALBUMIN/GLOBULIN RATIO 1.3 (1.0-2.2); ALKALINE PHOSPHATASE 56 IU/L (42-121); ALT ALANINE AMINOTRANSFERASE 52 IU/L (10-60); AST ASPARTATE AMINOTRANSFERASE 41 IU/L (10-42); BILIRUBIN,TOTAL 0.7 mg/dL (0.2-1.0); BUN - BLOOD UREA NITROGEN 9 mg/dL (6-20); CALCIUM 9.8 mg/dL (8.5-10.3); CARBON DIOXIDE - CO2 23 mmol/L (21-32); CHLORIDE 104 mmol/L (101-111); CREATININE 0.7 mg/dL (0.4-1.0); GFR - MDRD 93 (>89); GLUCOSE 91 mg/dL (70-100); LIPASE 39 U/L (22-51); SODIUM 136 mmol/L (135-145); TOTAL PROTEIN 8.4 g/dL (6.7-8.2)
[2020-12-06 13:25] LABS: CRP - C-REACTIVE PROTEIN < 1.0 mg/dL (0-1.0)
[2020-12-06] MEDS ORDERED: IOPAMIDOL-300 100 ML VIAL ONE (13:37)
--- NOTE | 2020-12-06 14:13 | CT Report ---
PROCEDURE: MAXILLOFACIAL W INDICATIONS: Right eye swelling; ? orbital cellulitis CONTRAST: IV CONTRAST: Isovue 300 ml: 100 PO CONTRAST: *NO PO CONTRAST TECHNIQUE: After the administration of intravenous contrast, 3.0 mm axial sections acquired from the mid-neck to the frontal sinuses, with coronal reformatting. For radiation dose reduction, the following was use d: automated exposure control, adjustment of mA and/or kV according to patient size. COMPARISON: None. FINDINGS: Image quality: Excellent. Orbital structures: Right preseptal periorbital soft tissue swelling without fluid collection. Right globe is normal in appearance. No post septal or retrobulbar are inflammatory fat stranding or abnorm al enhancement. Normal appearance of the extraocular muscles and optic nerve. Left orbital structures and periorbital soft tissues are normal. Vascular: Visualized vascular structures appear patent throughout. Bony vascular foramina and canal s appear normal. Bones: Facial bones appear intact, without fractures, erosions, or destruction. Visualized portions of the skull base and auditory canals also appear normal. Sinuses: Paranasal sinuses are aerated without fluid levels, mucosal thickening, or mucoceles. Mast oid air cells are aerated. IMPRESSION: Right preseptal periorbital soft tissue cellulitis with no evidence of abscess. No postseptal or intraorbital cellulitis identified. Reviewed by: Bhaskar Antony MD on 12/06/2020 2:11 PM PDT Approved by: Bhaskar Antony MD on 12/06/2020 2:11 PM PDT Station ID: [id number]
[2020-12-06] MEDS ORDERED: IOPAMIDOL-300 100 ML VIAL IVP ONE (14:22)
[2020-12-06 14:48] VITALS: BP 116/72
== END 2020-12-06 14:48 | disposition home or self-care (01) ==
LOC: ED 12:22
DX: L03.213 Periorbital cellulitis (principal)
CPT/HCPCS: 36415; 70487; 80053; 83690; 85025; 86140; 99284; Q9967

== ENCOUNTER 2021-05-11 20:56 | Emergency (ER) | payer OTHER ==
--- NOTE | 2021-05-11 22:30 | ED Physician Documentation ---
PD HPI DYSPNEA - Stated complaint Stated Complaint: SOA/ASHTHMA/C+ - History obtained from History obtained from: Patient - History of Present Illness Timing - onset: Today (this afternoon) Timing - details: Gradual onset Improved by: Rest Worsened by: Exertion Associated symptoms: Cough, Wheezing. No: Fever, Hemoptysis, Chest pain / discomfort - Additional information Additional information: chief c/o is dyspnea since earlier today. Patient is COVID vaccinated but tested (+) for COVID-19 earlier today. She developed dyspnea, generalized headache and myalgias this afternoon. She has asthma and has not had adequate relief of her dyspnea with her home nebulized treatments. She says she often will have significant improvement with steroids (with previous asthma exacerbations) Review of Systems Constitutional: reports: Myalgias, Fatigue. denies: Fever Cardiac: reports: Reviewed and negative Respiratory: reports: Dyspnea, Cough, Wheezing. denies: Hemoptysis PD PAST MEDICAL HISTORY - Past Medical History Cardiovascular: None Respiratory: Asthma Neuro: Migraines Endocrine/Autoimmune: None GI: Other FINISHING FRAME RUNNER: None : None HEENT: None Psych: None Musculoskeletal: Fatigue, Other Derm: Eczema - Past Surgical History Past Surgical History: Yes General: Cholecystectomy, Colonoscopy Ortho: Other /FINISHING FRAME RUNNER: section, Other - Present Medications Home Medications: Ambulatory Orders Medication Instructions Recorded Confirmed EPINEPHrine [Epipen 2-Jez] 0.3 mg IJ ONCE PRN #1 auto.injct 08/16/17 12/06/20 Albuterol 2.5 mg INH Q4H PRN 05/14/18 12/06/20 Albuterol Sulfate [Proair 2 puffs INH Q4H PRN 05/14/18 12/06/20 Respiclick] Fluticasone [Flonase] 1 sprays OFE DAILY 05/14/18 12/06/20 Fluticasone/Salmeterol [Advair 1 puffs IH BID 05/14/18 12/06/20 500-50 Diskus] hydrOXYzine HCL [Hydroxyzine HCl] 10 mg PO PRN PRN 05/14/18 12/06/20 Ca/D3/Mag Ox/Zinc/Junior Designer/Griffin/Bor 1 each PO DAILY 07/26/18 12/06/20 [Calcium 201-S0-Fcmlcfke Chw Tb] Ibuprofen [Motrin] 400 mg PO Q6H PRN 07/26/18 12/06/20 Loratadine [Claritin] 10 mg PO DAILY 07/26/18 12/06/20 Turmeric Root Extract [Turmeric] 500 mg PO DAILY 07/26/18 12/06/20 Amox/Clav 875/125 [Augmentin] 1 each PO Q12H #20 tablet 12/06/20 Dupilumab [Dupixent Pen] 1 mg INJ ONCE 12/06/20 12/06/20 predniSONE [Deltasone] 60 mg PO DAILY 4 Days #12 tablet 05/11/21 - Allergies Allergies/Adverse Reactions: Allergies Allergy/AdvReac Type Severity Reaction Status Date / Time peanut Allergy Severe anaphalaxis Verified 05/11/21 21:36 ipratropium bromide * Allergy Intermediate Unknown Verified 05/11/21 21:36 [From Atrovent] tree nut Allergy Anaphylaxis Verified 05/11/21 21:36 walnut Allergy Anaphylaxis Verified 05/11/21 21:36 zolpidem tartrate * AdvReac Intermediate swelling Verified 05/11/21 21:36 [From Ambien] tiotropium AdvReac Respiratory Verified 05/11/21 21:36 [From Spiriva with HandiHaler] - Social History Does the pt smoke?: No Smoking Status: Never smoker Does the pt drink ETOH?: Yes Does the pt have substance abuse?: No - Immunizations Immunizations are current?: Yes - POLST Patient has POLST: No PD ED PE NORMAL - Vitals Vital signs reviewed: Yes - General General: Alert and oriented X 3, No acute distress, Well developed/nourished - Cardiac Cardiac: RRR, No murmur - Respiratory Respiratory: No respiratory distress, Clear bilaterally (mildly diminished breath sounds bilaterally but adequate air flow; no wheezing, rales, rhonchi) Results - Vitals Vitals: Oxygen O2 Source Room air PD MEDICAL DECISION MAKING - ED course Complexity details: considered differential, d/w patient ED course: patient is in NAD, has albuterol nebs at home for her asthma. Will rx steroids (prednisone), with dose of decadron in ED, as she has had good results with steroids with previous asthma exacerbations Departure - Departure Disposition: Home, Self Care Clinical Impression: Asthma, COVID-19 Condition: Good Instructions: ED Reactive Airway Disease, ED Viral Syndrome Follow-Up: ANI MACEDO MD [Primary Care Provider] - Prescriptions: predniSONE [Deltasone] 60 mg PO DAILY 4 Days #12 tablet Comments: A prescription for prednisone has been electronically submitted to [facility] pharmacy in [place]. Discharge Date/Time: 05/11/21 23:16
[2021-05-11] MEDS ORDERED: DEXAMETHASONE 10 MG/ML VIAL PO STA (22:45)
[2021-05-11] MEDS ORDERED: CHERRY SYRUP 10 ML UDC PO ONE (22:45)
[2021-05-11 23:16] VITALS: BP 144/88
== END 2021-05-11 23:16 | disposition home or self-care (01) ==
LOC: ED 20:56
DX: U07.1 COVID-19 (principal); J45.909 Unspecified asthma, uncomplicated
CPT/HCPCS: 99282; 99283; A9270

== ENCOUNTER 2021-05-16 20:22 | Emergency (ER) | payer OTHER ==
[2021-05-16] MEDS ORDERED: ALBUTEROL NEB 2.5 MG/3 ML INH STA (20:49)
[2021-05-16] MEDS ORDERED: AZITHROMYCIN 250 MG TABLET PO STA (20:59)
--- NOTE | 2021-05-16 21:00 | ED Physician Documentation ---
History of Present Illness - Stated complaint Stated Complaint: C+/SOA/CHEST PX - Chief complaint Chief Complaint: Resp - Additonal information Additional information: 40-year-old female who carries a history of asthma generally controlled with Dupixent presents to the emergency department with worsening dyspnea. She is fully vaccinated for COVID though not boosted. She developed having cough congestion and shortness of air on 11 May and was diagnosed with COVID. She did come into the ER and was discharged with a 4-day burst of prednisone. Despite this she continues to have dyspnea. She is using albuterol nebulizers at home that will for a very brief amount of time improve her shortness of air however the dyspnea quickly returns. Her peak flow meters have been in the low 200's at home Due to the persistent dyspnea she did contact her primary care provider who did Write for prescription of azithromycin though it has not yet been filled. In addition to this her primary care doctor also ordered a 10-day prednisone taper which she started yesterday. She presents to the emergency department tachypneic and mildly labored though not hypoxic. Review of Systems Constitutional: denies: Fever, Chills Eyes: reports: Reviewed and negative Nose: reports: Reviewed and negative Throat: reports: Reviewed and negative Cardiac: reports: Reviewed and negative Respiratory: reports: Dyspnea, Cough GI: denies: Abdominal Pain, Abdominal Swelling : reports: Reviewed and negative Skin: reports: Reviewed and negative PD PAST MEDICAL HISTORY - Past Medical History Cardiovascular: None Respiratory: Asthma Neuro: Migraines Endocrine/Autoimmune: None GI: Other TRANSLATOR INTERPRETER: None : None HEENT: None Psych: None Musculoskeletal: Fatigue, Other Derm: Eczema - Past Surgical History Past Surgical History: Yes General: Cholecystectomy, Colonoscopy Ortho: Other /TRANSLATOR INTERPRETER: section, Other - Present Medications Home Medications: Ambulatory Orders Medication Instructions Recorded Confirmed EPINEPHrine [Epipen 2-Jez] 0.3 mg IJ ONCE PRN #1 auto.injct 08/16/17 12/06/20 Albuterol 2.5 mg INH Q4H PRN 05/14/18 12/06/20 Albuterol Sulfate [Proair 2 puffs INH Q4H PRN 05/14/18 12/06/20 Respiclick] Fluticasone [Flonase] 1 sprays OFE DAILY 05/14/18 12/06/20 Fluticasone/Salmeterol [Advair 1 puffs IH BID 05/14/18 12/06/20 500-50 Diskus] hydrOXYzine HCL [Hydroxyzine HCl] 10 mg PO PRN PRN 05/14/18 12/06/20 Ca/D3/Mag Ox/Zinc/Locomotive Crane Engineer/Griffin/Bor 1 each PO DAILY 07/26/18 12/06/20 [Calcium 319-V2-Chginjwb Chw Tb] Ibuprofen [Motrin] 400 mg PO Q6H PRN 07/26/18 12/06/20 Loratadine [Claritin] 10 mg PO DAILY 07/26/18 12/06/20 Turmeric Root Extract [Turmeric] 500 mg PO DAILY 07/26/18 12/06/20 Amox/Clav 875/125 [Augmentin] 1 each PO Q12H #20 tablet 12/06/20 Dupilumab [Dupixent Pen] 1 mg INJ ONCE 12/06/20 12/06/20 predniSONE [Deltasone] 60 mg PO DAILY 4 Days #12 tablet 05/11/21 - Allergies Allergies/Adverse Reactions: Allergies Allergy/AdvReac Type Severity Reaction Status Date / Time peanut Allergy Severe anaphalaxis Verified 05/16/21 20:45 ipratropium bromide * Allergy Intermediate Unknown Verified 05/16/21 20:45 [From Atrovent] tree nut Allergy Anaphylaxis Verified 05/16/21 20:45 walnut Allergy Anaphylaxis Verified 05/16/21 20:45 zolpidem tartrate * AdvReac Intermediate swelling Verified 05/16/21 20:45 [From Ambien] tiotropium AdvReac Respiratory Verified 05/16/21 20:45 [From Spiriva with HandiHaler] - Social History Does the pt smoke?: No Smoking Status: Never smoker Does the pt drink ETOH?: Yes Does the pt have substance abuse?: No - Immunizations Immunizations are current?: Yes - POLST Patient has POLST: No PD ED PE EXPANDED - General General: Alert, Anxious (dyspnea and anxiety), Other - Cardiac Cardiac: Regular Rate, Radial strong equal, Pedal strong equal, Cap refill < 2 sec. No: Murmur Present - Respiratory Respiratory: Labored, Wheezing (mild tachypnea in the mid 20's; scattered expiratory wheeze. Visibly labored to breath. sat's 99% room air). No: Distress, Gasping, Accessory mm use - Abdomen Abdomen: Normal Bowel sounds. No: Tender to palpation - Derm Derm: Normal color, Warm and dry. No: Rash - Extremities Extremities: Normal, Pedal edema bilateral, Pedal Pulses Present. No: Deformity, Tenderness, Right calf TTP/cord, Left calf TTP/cord - Neuro Neuro: Alert and Oriented X 3, CNII-XII intact - GCS Eye Opening: Spontaneous Motor: Obeys Commands Verbal: Oriented Total: 15 Results - Vitals Vitals: Vital Signs - 24 hr 05/16/21 05/16/21 05/16/21 20:38 20:45 20:59 Temperature 36.8 C Heart Rate 82 103 H 78 Respiratory 16 20 20 Rate Blood Pressure 151/97 H 151/97 H O2 Saturation 99 99 05/16/21 22:45 Temperature Heart Rate 85 Respiratory 14 Rate Blood Pressure 134/90 H O2 Saturation 97 Oxygen O2 Source Room air - EKG (time done) 2047 Rate: Rate (enter#) (89) Rhythm: NSR [place]: Normal Intervals: Normal MI QRS: Normal Ischemia: Normal ST segments Compare to prior EKG: Unchanged from prior EKG Computer interpretation: Agree with computer - Labs Labs: Laboratory Tests 05/16/21 05/16/21 05/16/21 20:53 20:53 20:53 WBC 12.4 H RBC 4.86 Hgb 14.6 Hct 43.4 MCV 89.3 MCH 30.0 MCHC 33.6 RDW 13.1 Plt Count 443 MPV 8.7 Neut # (Auto) 9.8 H Lymph # (Auto) 1.8 [place] # (Auto) 0.8 Eos # (Auto) 0.0 Baso # (Auto) 0.0 Absolute Nucleated RBC 0.00 Nucleated RBC % 0.0 Sodium 137 Potassium 4.0 Chloride 102 Carbon Dioxide 23 Anion Gap 12.0 BUN 18 Creatinine 0.7 Estimated GFR (MDRD) 93 Glucose 131 H Calcium 9.4 Total Bilirubin 0.4 AST 22 ALT 36 Alkaline Phosphatase 46 Troponin I High Sens < 2.3 L Total Protein 7.8 Albumin 4.1 Globulin 3.7 Albumin/Globulin Ratio 1.1 Lipase 34 Serum HCG, Qual 05/16/21 20:53 WBC RBC Hgb Hct MCV MCH MCHC RDW Plt Count MPV Neut # (Auto) Lymph # (Auto) [place] # (Auto) Eos # (Auto) Baso # (Auto) Absolute Nucleated RBC Nucleated RBC % Sodium Potassium Chloride Carbon Dioxide Anion Gap BUN Creatinine Estimated GFR (MDRD) Glucose Calcium Total Bilirubin AST ALT Alkaline Phosphatase Troponin I High Sens Total Protein Albumin Globulin Albumin/Globulin Ratio Lipase Serum HCG, Qual NEGATIVE - Rads (name of study) Chest xray Radiology: Final report received (No acute cardiopulmonary pathology.) PD MEDICAL DECISION MAKING - ED course Complexity details: reviewed results, re-evaluated patient, considered di fferential, d/w patient ED course: 40-year-old female who has a history of difficult to control asthma presents to the emergency department with persistent dyspnea. This is in the setting of a recently positive COVID-19 test. She was initially seen in the emergency department and started on a prednisone burst. However her symptoms failed to improve therefore her physician has prescribed a 10-day taper which she started yesterday. Despite using albuterol nebulizers at home she is persistently dyspneic. We initially gave her albuterol with a spacer but it did not improve her dyspnea. Reassuringly she is not hypoxic. Patient has a difficult time taking a deep breath due to chest pain. I have ordered morphine for this. Her screening EKG is nonischemic. High-sensitivity troponin is negative. Given the history of COVID-19 infection however we will proceed with CT pulmonary angiogram to rule out a pulmonary embolus. Patient will be signed out to my nighttime colleague Dr. Hollins to follow-up CT results as well as dyspnea. A repeat albuterol dosing via spacer is pending as well. Departure - Departure Disposition: 01 Home, Self Care Clinical Impression: Dyspnea Qualifiers: Dyspnea type: other forms of dyspnea Qualified Code(s): R06.09 - Other forms of dyspnea Asthma with exacerbation Qualifiers: Asthma severity: severe Asthma persistence: persistent Qualified Code(s): J45.51 - Severe persistent asthma with (acute) exacerbation Condition: Stable Instructions: COVID-19 [facility], COVID-[address] [facility] Statement Comments: You were seen in the emergency department for Medical evaluation. He will wear CT of the chest did not show a pulmonary embolism (blood clot in the lung). It does show that you have active covid. Your oxygen levels and vital signs are normal. Please continue your prednisone course, follow-up for your shot on Friday, and continue with albuterol nebulizer treatments every 2 hours as needed. Return to the emergency department if you develop any new or worsening symptoms or have other concerns. Discharge Date/Time: 05/17/21 00:16
[2021-05-16 21:03] LABS: BASOPHILS % (AUTO) 0.2 %; HCT - HEMATOCRIT 43.4 % (37.0-47.0); HGB - HEMOGLOBIN 14.6 g/dL (12.0-16.0); LYMPHOCYTES # (AUTO) 1.8 10^3/uL (1.5-3.5); LYMPHOCYTES % (AUTO) 14.1 %; MEAN CORPUSCULAR HGB CONC 33.6 g/dL (32.0-36.0); MEAN CORPUSCULAR VOLUME 89.3 fL (81.0-99.0); MEAN PLATELET VOLUME 8.7 fL (7.9-10.8); MONOCYTES # (AUTO) 0.8 10^3/uL (0.0-1.0); MONOCYTES % (AUTO) 6.5 %; NEUTROPHILS # (AUTO) 9.8 10^3/uL (1.5-6.6); NEUTROPHILS % (AUTO) 78.8 %; PLT - PLATELET COUNT 443 10^3/uL (130-450); RED BLOOD COUNT 4.86 10^6/uL (4.20-5.40); RED CELL DISTRIBUTION WIDTH 13.1 % (12.0-15.0); WHITE BLOOD COUNT 12.4 x10^3/uL (4.8-10.8)
[2021-05-16] MEDS ORDERED: ALBUTEROL 1 PUFF INH STA ×2 (21:04→21:23)
[2021-05-16 21:16] LABS: ALBUMIN 4.1 g/dL (3.2-5.5); ALBUMIN/GLOBULIN RATIO 1.1 (1.0-2.2); BILIRUBIN,TOTAL 0.4 mg/dL (0.2-1.0); CALCIUM 9.4 mg/dL (8.5-10.3); CREATININE 0.7 mg/dL (0.4-1.0); TOTAL PROTEIN 7.8 g/dL (6.7-8.2)
[2021-05-16] MEDS ORDERED: iohexoL-300 100 ML VIAL ONE (21:21)
[2021-05-16] MEDS ORDERED: MORPHINE 2 MG/ML CARPUJECT IVP STA (21:23)
--- NOTE | 2021-05-16 21:25 | XRAY Report ---
PROCEDURE: Chest 1 View X-Ray INDICATIONS: C+ chest pain TECHNIQUE: One view of the chest was acquired. COMPARISON: 04/30/2020 FINDINGS: Surgical changes and devices: None. Lungs and pleura: No pleural effusions or pneumothorax. Lungs are clear. Mediastinum: Mediastinal contours appear normal. Heart size is normal. Bones and chest wall: No suspicious bony lesions. Overlying soft tissues appear unremarkable. IMPRESSION: Chest without acute cardiopulmonary abnormalities. No focal airspace disease. Reviewed by: Amrit Odell MD on 05/16/2021 9:24 PM PST Approved by: Amrit Odell MD on 05/16/2021 9:24 PM PST Station ID: [id number]
[2021-05-16 21:31] LABS: HCG,QUALITATIVE BLOOD NEGATIVE
[2021-05-16] MEDS ORDERED: iohexoL-300 100 ML VIAL IVP ONE (21:56)
--- NOTE | 2021-05-16 22:26 | CT Report ---
PROCEDURE: ANGIO CHEST W/WO INDICATIONS: dyspnea; Covid + CONTRAST: IV CONTRAST: Isovue 300 ml: 80 PO CONTRAST: *NO PO CONTRAST TECHNIQUE: After the administration of intravenous contrast, 2 mm axial images were acquired from the pulmonary apices to the posterior costophrenic angles during the arterial phase. In addition, 1 mm lung kernel and 5 mm soft tissue kernel reconstructions were performed. 3-dimensional coronal oblique maximum int ensity projection (MIP) reformats, 8 mm axial MIP, and 5 mm coronal and sagittal MPR reformats were t hen performed through the thorax. For radiation dose reduction, the following was used: automated exp osure control, adjustment of mA and/or kV according to patient size. COMPARISON: Chest radiograph from earlier same day FINDINGS: Image quality: Excellent. Pulmonary arteries: Pulmonary arteries are normal in size, and demonstrate no intraluminal filling d efects to suggest central pulmonary embolism. Lungs and pleura: Nonspecific, scattered dependent groundglass opacities predominantly in the bilater al lower lobes. No focal consolidation. Minimal perihilar airway thickening. No septal nodularity. No pneumothorax. Patchy dependent atelectasis. No pleural effusions. Central and peripheral airways are patent. Mediastinum: Heart size is normal, without pericardial effusion. No mediastinal or hilar adenopathy . Thoracic aorta is normal in caliber and enhancement. Esophagus is normal in caliber, with very sm all hiatal hernia. Bones and chest wall: No suspicious bony lesions. Ribs and thoracic spine appear intact throughout. No axillary or supraclavicular adenopathy. The thyroid is normal in size and there are no incident al findings. Abdomen: Visualized upper abdominal solid organs appear normal in the early arterial phase of enhanc ement. IMPRESSION: No acute pulmonary emboli. Nonspecific, diffuse bilateral lower lobe predominant groundglass opacities and dependent atelectasis . There is mild bilateral perihilar airway thickening. Findings may represent an infectious or inflam matory process with viral etiology most likely. Concurrent bronchitis is likely present. No focal con solidation seen. CLINICAL RECOMMENDATION STATEMENTS: In patients <35 years with an ITN detected on CT, MRI, or extrathyroidal ultrasound, the Committee re commends further evaluation with dedicated thyroid ultrasound if the nodule is "e1 cm and has no susp icious imaging features, and if the patient has normal life expectancy. In patients "e35 years with an ITN detected on CT, MRI, or extrathyroidal ultrasound, the Committee r ecommends further evaluation with dedicated thyroid ultrasound if the nodule is "e1.5 cm and has no s uspicious imaging features, and if the patient has normal life expectancy. (ACR, 2014) Reviewed by: Amrit Odell MD on 05/16/2021 10:24 PM PST Approved by: Amrit Odell MD on 05/16/2021 10:24 PM PST Station ID: [id number]
[2021-05-16 22:46] VITALS: BP 134/90
--- NOTE | 2021-05-16 23:57 | ED Physician Documentation ---
ED Addendum - Addendum Addendum: 05/16/21 23:55 Patient endorsed to me by nurse practitioner Eugene awaiting CTA pulmonary embolism study. CT was negative for PE and shows likely COVID viral pneumonia. This is consistent with patient's positive COVID test. Upon my history and exam the patient is endorsing some tightness in the chest but otherwise appears asymptomatic. Vital signs within normal limits. Lung exam with mild decreased airflow bilaterally. Wheezing appears to have resolved just status post MDI al buterol inhaler. Patient is currently on 60 mg prednisone in addition to her monoclonal antibody injections that she routinely receives as well as albuterol nebulizers every 2 hours as needed. She does not need any medications refilled. Symptomatic care and return precautions discussed. Plan for her to follow-up via telehealth with her primary doctor. Disposition Home condition good Impression 1 asthma exacerbation 2C0 VID 19
== END 2021-05-17 00:16 | disposition home or self-care (01) ==
LOC: ED 20:22
DX: U07.1 COVID-19 (principal); J45.51 Severe persistent asthma with (acute) exacerbation
CPT/HCPCS: 36415; 71045; 71275; 80053; 83690; 84484; 84703; 85025; 93005; 94640; 96374; 99284; A9270; Q9967; 85379

== ENCOUNTER 2021-05-20 13:17 | Emergency (ER) | payer OTHER ==
--- NOTE | 2021-05-20 15:27 | ED Physician Documentation ---
PD HPI HEADACHE - Stated complaint Stated Complaint: C+ HEAD PX/R SIDE FLANK PX - Chief complaint Chief Complaint: Neuro - History obtained from History obtained from: Patient - Additional information Additional information: On day 9 of Covid, has had headache since. Bilateral throbbing with tingling of forehead. Tingling is bilateral, potentially right more than left, but definitely migratory and bilateral. Has covid PNA as had CTPA on prior visit here. Has hx migraines associated with menses. 2012 had viral meningitis, This is not as bad as that. No specific etiology was found then. Had moderna x2, notboosted. She is currently on prednisone and she has been hyperglycemic in the past with prednisone. 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 : None HEENT: None Psych: None Musculoskeletal: Fatigue, Other Derm: Eczema - Past Surgical History Past Surgical History: Yes General: Cholecystectomy, Colonoscopy Ortho: Other /ELECTRONIC DIE MAKER: section, Other - Present Medications Home Medications: Ambulatory Orders Medication Instructions Recorded Confirmed EPINEPHrine [Epipen 2-Jez] 0.3 mg IJ ONCE PRN #1 auto.injct 08/16/17 05/20/21 Albuterol 2.5 mg INH Q4H PRN 05/14/18 05/20/21 Albuterol Sulfate [Proair 2 puffs INH Q4H PRN 05/14/18 05/20/21 Respiclick] Fluticasone [Flonase] 1 sprays OFE DAILY 05/14/18 05/20/21 Fluticasone/Salmeterol [Advair 1 puffs IH BID 05/14/18 05/20/21 500-50 Diskus] Ca/D3/Mag Ox/Zinc/Marketing Development Specialist/Griffin/Bor 1 each PO DAILY 07/26/18 05/20/21 [Calcium 707-M7-Pzwjpysu Chw Tb] Dupilumab [Dupixent Pen] 1 mg INJ ONCE 12/06/20 05/20/21 Azithromycin [Zithromax] 250 mg PO DAILY 05/20/21 05/20/21 HYDROcod/ACETAM 5/325 [[place] 5/325] 1 - 2 tab PO Q6H PRN #15 tablet 05/20/21 Ketorolac [Toradol] 10 mg ORAL Q6HR PRN 05/20/21 05/20/21 predniSONE [Deltasone] 50 mg PO DAILY 05/20/21 05/20/21 - Allergies Allergies/Adverse Reactions: Allergies Allergy/AdvReac Type Severity Reaction Status Date / Time peanut Allergy Severe anaphalaxis Verified 05/20/21 13:33 ipratropium bromide * Allergy Intermediate Unknown Verified 05/20/21 13:33 [From Atrovent] tree nut Allergy Anaphylaxis Verified 05/20/21 13:33 walnut Allergy Anaphylaxis Verified 05/20/21 13:33 zolpidem tartrate * AdvReac Intermediate swelling Verified 05/20/21 13:33 [From Ambien] tiotropium AdvReac Respiratory Verified 05/20/21 13:33 [From Spiriva with HandiHaler] - Social History Does the pt smoke?: No Smoking Status: Never smoker Does the pt drink ETOH?: Yes Does the pt have substance abuse?: No - Immunizations Immunizations are current?: Yes - POLST Patient has POLST: No PD ED PE NORMAL - Vitals Vital signs reviewed: Yes - General General: Alert and oriented X 3, No acute distress - HEENT HEENT: PERRL, EOMI, Ears normal, Moist mucous membranes, Pharynx benign - Neck Neck: Supple, no meningeal sign, No bony TTP - Cardiac Cardiac: RRR, No murmur - Respiratory Respiratory: No respiratory distress, Clear bilaterally - Abdomen Abdomen: Non tender - Neuro Neuro: Alert and oriented X 3, business office manager 2-12 intact, No motor deficit, No sensory deficit, Normal speech Eye Opening: Spontaneous Motor: Obeys Commands Verbal: Oriented GCS Score: 15 - Psych Psych: Normal mood, Normal affect Results - Vitals Vitals: Vital Signs - 24 hr 05/20/21 05/20/21 05/20/21 14:40 15:02 15:52 Temperature 36.8 C 36.1 C L 36.5 C Heart Rate 72 96 101 H Respiratory 22 20 18 Rate Blood Pressure 144/90 H 141/92 H 114/71 O2 Saturation 98 96 94 05/20/21 05/20/21 05/20/21 17:45 17:47 18:15 Temperature 98.2 C H 36.5 C Heart Rate 76 54 L Respiratory 18 18 Rate Blood Pressure 124/74 126/71 O2 Saturation 98 98 05/20/21 19:26 Temperature 36.5 C Heart Rate 60 Respiratory 18 Rate Blood Pressure 124/70 O2 Saturation 98 Oxygen O2 Source Room air PD MEDICAL DECISION MAKING - ED course ED course: 40-year-old woman with headache associated with COVID. Nothing on exam to be concerned for meningitis. Gradual onset is inconsistent with intracranial hemorrhage. She was treated stepwise with medications, traditional migraine medicines were not that helpful but a small dose of morphine was. She remained without meningismus and well-appearing on repeat examination. Departure - Departure Disposition: 01 Home, Self Care Clinical Impression: COVID-19 Migraine Qualifiers: Migraine type: without aura Status migrainosus presence: with status migrainosus Intractability: intractable Qualified Code(s): G43.011 - Migraine without aura, intractable, with status migrainosus Condition: Good Record reviewed to determine appropriate education?: Yes Instructions: ED Cephalgia Unspecified, ED Viral Syndrome Prescriptions: HYDROcod/ACETAM 5/325 [[place] 5/325] 1 - 2 tab PO Q6H PRN #15 tablet PRN Reason: Pain Comments: I sent your prescription electronically to [facility] in [place]. Return if worsening or if new symptoms develop. You should be better hopefully over the next few days. I am prescribing a short course of narcotic pain medication for you. These are potentially dangerous and addictive medications that should be used carefully. These medications may constipate you. Take an rcbv-jwx-gufsjug stool softener (docusate) twice daily with plenty of water while taking these medications. If you go 24 hours without a bowel movement, take flyp-bha-dlqtrqg miralax, per pac james instructions. Do not drink or drive while taking these medications. If you received narcotic or sedating medications while in the emergency department, do not drive for 24 hours. Store this medication in a safe, secure place and out of reach of children. It is a violation of federal law to give or sell this medication to another person or to use in a manner other than prescribed. The ED will not refill narcotic prescriptions, including prescriptions lost or stolen. To dispose of unwanted medications: 1. [facility] at [address] in [place] has a medication drop box. They accept prescription medications (in pill form) Friday through Friday 9:00 a.m. to 5:00 p.m. 2. [facility] accepts prescription medications (in pill form only) for disposal year round. Call for more information. 3. Contact the [facility] for the next [employer] sponsored prescription drug collection event. , [phone], or [phone]; Note that many narcotic pain relievers also contain Tylenol/acetaminophen. Please ensure that your total dose of acetaminophen from all sources does not exceed 3 g (3000 mg) per day. Discharge Date/Time: 05/20/21 19:26
[2021-05-20] MEDS ORDERED: METOCLOPRAMIDE 10 MG/2 ML VIAL IVP STA (15:28)
[2021-05-20] MEDS ORDERED: SODIUM CHLORIDE 0.9% 1,000 ML IV STA (15:28)
[2021-05-20] MEDS ORDERED: KETOROLAC 15 MG/ML VIAL IVP STA (15:28)
[2021-05-20] MEDS ORDERED: diphenhydrAMINE INJ 50 MG/ML VIAL IVP STA (15:29)
[2021-05-20] MEDS ORDERED: SUMAtriptan 6 MG/0.5 ML VIAL SUBQ STA (16:26)
[2021-05-20] MEDS ORDERED: MORPHINE 2 MG/ML CARPUJECT IVP STA (17:25)
[2021-05-20] MEDS ORDERED: HYDROcod/ACET 5/325 Prepack 4 PO STA (18:38)
[2021-05-20 19:27] VITALS: BP 124/70
== END 2021-05-20 19:26 | disposition home or self-care (01) ==
LOC: ED 13:17
DX: U07.1 COVID-19 (principal); G43.011 Migraine without aura, intractable, with status migrainosus
CPT/HCPCS: 96372; 96374; 96375; 99283; 99285; J1200; J2765

== ENCOUNTER 2021-05-22 05:40 | Emergency (ER) | payer OTHER ==
[2021-05-22] MEDS ORDERED: KETOROLAC 60 MG/2 ML VIAL IM STA (06:32)
[2021-05-22] MEDS ORDERED: LORazepam 2 MG/ML VIAL IM STA (06:32)
[2021-05-22] MEDS ORDERED: ALBUTEROL 1 PUFF INH STA (06:33)
--- NOTE | 2021-05-22 07:05 | ED Physician Documentation ---
PD HPI DYSPNEA - Stated complaint Stated Complaint: C+, CHEST/BACK PX, HEADACHE - Chief complaint Chief Complaint: Resp - History obtained from History obtained from: Patient - Additional information Additional information: The patient comes to the emergency department for chief complaint of dyspnea and wheezing. She has a longstanding history of asthma and was diagnosed with COVID about 10 days ago. She States she has been having to use her inhalers every 2-3 hours [id number]-stk-awprk and has had headaches. Patient denies any fevers. When she was first diagnosed, she states she had to use the inhalers more but that this is improved a little. However, the patient states that she feels like she just "cannot get her air out". No other complaints at this time. Review of Systems Ten Systems: 10 systems reviewed and negative Constitutional: reports: Reviewed and negative. denies: Fever Eyes: reports: Reviewed and negative Ears: reports: Reviewed and negative Nose: reports: Reviewed and negative Throat: reports: Reviewed and negative Cardiac: reports: Reviewed and negative Respiratory: reports: Dyspnea, Cough, Wheezing GI: reports: Reviewed and negative : reports: Reviewed and negative Skin: reports: Reviewed and negative Musculoskeletal: reports: Reviewed and negative Neurologic: reports: Reviewed and negative Psychiatric: reports: Reviewed and negative Endocrine: reports: Reviewed and negative Immunocompromised: reports: Reviewed and negative PD PAST MEDICAL HISTORY - Past Medical History Past Medical History: Yes Cardiovascular: None Respiratory: Asthma Neuro: Migraines Endocrine/Autoimmune: None 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 : None HEENT: None Psych: None Musculoskeletal: Fatigue, Other Derm: Eczema - Past Surgical History Past Surgical History: Yes General: Cholecystectomy, Colonoscopy Ortho: Other /MANUFACTURING ENGINEER SUPERVISOR: section, Other - Present Medications Home Medications: Ambulatory Orders Medication Instructions Recorded Confirmed EPINEPHrine [Epipen 2-Jez] 0.3 mg IJ ONCE PRN #1 auto.injct 08/16/17 05/20/21 Albuterol 2.5 mg INH Q4H PRN 05/14/18 05/20/21 Albuterol Sulfate [Proair 2 puffs INH Q4H PRN 05/14/18 05/20/21 Respiclick] Fluticasone [Flonase] 1 sprays OFE DAILY 05/14/18 05/20/21 Fluticasone/Salmeterol [Advair 1 puffs IH BID 05/14/18 05/20/21 500-50 Diskus] Ca/D3/Mag Ox/Zinc/Crepe Laminator Operator/Griffin/Bor 1 each PO DAILY 07/26/18 05/20/21 [Calcium 346-Z5-Cmamzyfu Chw Tb] Dupilumab [Dupixent Pen] 1 mg INJ ONCE 12/06/20 05/20/21 Azithromycin [Zithromax] 250 mg PO DAILY 05/20/21 05/20/21 HYDROcod/ACETAM 5/325 [Leslie 5/325] 1 - 2 tab PO Q6H PRN #15 tablet 05/20/21 Ketorolac [Toradol] 10 mg ORAL Q6HR PRN 05/20/21 05/20/21 predniSONE [Deltasone] 50 mg PO DAILY 05/20/21 05/20/21 diazePAM [Valium] 5 - 10 mg PO TID PRN #20 tablet 05/22/21 - Allergies Allergies/Adverse Reactions: Allergies Allergy/AdvReac Type Severity Reaction Status Date / Time peanut Allergy Severe anaphalaxis Verified 05/22/21 06:11 ipratropium bromide * Allergy Intermediate Unknown Verified 05/22/21 06:11 [From Atrovent] tree nut Allergy Anaphylaxis Verified 05/22/21 06:11 walnut Allergy Anaphylaxis Verified 05/22/21 06:11 zolpidem tartrate * AdvReac Intermediate swelling Verified 05/22/21 06:11 [From Ambien] tiotropium AdvReac Respiratory Verified 05/22/21 06:11 [From Spiriva with HandiHaler] - Social History Does the pt smoke?: No Smoking Status: Never smoker Does the pt drink ETOH?: Yes Does the pt have substance abuse?: No - Immunizations Immunizations are current?: Yes - POLST Patient has POLST: No PD ED PE NORMAL - Vitals Vital signs reviewed: Yes - General General: Alert and oriented X 3, No acute distress, Well developed/nourished, Other (Patient appears anxious.) - HEENT HEENT: Atraumatic, PERRL, EOMI, Moist mucous membranes - Cardiac Cardiac: RRR, No murmur, Strong equal pulses - Respiratory Respiratory: No respiratory distress, Clear bilaterally, Other (Patient is pushing her air out very hard at the end of each breath; however, on auscultation, her lungs are clear bilaterally with good air movement all the way to the lung bases on both sides. There are no expiratory wheezes whatsoever. Patient's O2 saturation on room air is also noted to be 100%) - Abdomen Abdomen: Soft, Non tender, Non distended - Derm Derm: Normal color, Warm and dry, No rash - Extremities Extremities: No deformity, No edema, No calf tenderness / cord - Neuro Neuro: Alert and oriented X 3, head athletic trainer 2-12 intact, Normal speech - Psych Psych: Normal mood, Normal affect Results - Vitals Vitals: Vital Signs - 24 hr 05/22/21 05/22/21 05:45 07:15 Temperature 36.6 C Heart Rate 82 84 Respiratory 24 254 H Rate Blood Pressure 151/107 H O2 Saturation 99 Oxygen O2 Source Room air - EKG (time done) 0556 Rate: Rate (enter#) (91) Rhythm: NSR Woody: Normal Intervals: Normal TN, Other (Borderline short TN) QRS: LVH (By voltage) Ischemia: Normal ST segments Compare to prior EKG: Old EKG unavailable Computer interpretation: Agree with computer PD MEDICAL DECISION MAKING - ED course Complexity details: reviewed old records, reviewed results, re-evaluated patient, considered differential, d/w patient ED course: I reviewed the patient's records from her several visits here over the last couple of weeks, and feel that the patient has had extensive respiratory work- up, including a CT angiogram of the chest, which was negative for PE. However it did show some pneumonia at that time. Patient had been treated with antibiotics for this already, and had also been on her home nebulizer treatments as well as steroids, which she is still on. On exam, I really did not find her to have actual wheezing in her airways, and she was actually moving air quite well. The patient did seem to be pushing her air out very hard on the end of her breaths, causing upper airway wheezing type of sound. However, she was able to converse easily and had a very good oxygen saturation on room air. Additionally, she was nontachycardic and her blood pressure was normal. I did repeat a chest x-ray, given her CT findings since she has been ill, and that this was unremarkable. The patient was given Ativan here in the emergency department as well as 2 puffs of albuterol. She is already on a steroid at home and given her lung exam I do not feel she needs more of this than she is already on. I discussed with the patient my findings on exam and that she is actually moving air very well. The patient is also already on Vicodin for her headaches at home and is still taking this. I do not think she needs any further medications in this regard. We have discussed home management of the symptoms, as well as the usual indications for return. Departure - Departure Disposition: Home, Self Care Clinical Impression: COVID Asthma exacerbation Qualifiers: Asthma severity: mild Asthma persistence: intermittent Qualified Code(s): J45.21 - Mild intermittent asthma with (acute) exacerbation Condition: Stable Instructions: Asthma Dc, ED Viral Syndrome Prescriptions: diazePAM [Valium] 5 - 10 mg PO TID PRN #20 tablet PRN Reason: Spasms Comments: Your X-ray looks good. Actually, your oxygen saturation on regular air is 100%, and you are actually moving air very well through your lungs. The wheezing sensation that you are feeling and hearing is more from pushing air through your throat at the very end of your breath. However, the air is moving out well on its own and you will most likely have less chest pain and tightness and discomfort if your breathing is a little more relaxed. You may take the Valium to help with this, and to counteract some of the stimulation of your "adrenaline system" from the frequent nebulizer treatments. This may help with some of the sensation of needing to push air out. Please follow-up with your primary care physician for further concerns. At this point in time, you are not having fevers and your body is most likely working through the viral infection. You may continue to take the medication you have at home for your headaches. Your prescription has been electronically transmitted to [facility] in [place].
--- NOTE | 2021-05-22 08:19 | XRAY Report ---
PROCEDURE: Chest 1 View X-Ray INDICATIONS: sob TECHNIQUE: One view of the chest was acquired. COMPARISON: Angiogram CT chest, chest x-ray 05/16/2021 FINDINGS: Surgical changes and devices: None. Lungs and pleura: Minimal appearance of slight increased opacity within the left base, unchanged comp ared to prior exam. Mediastinum: Mediastinal contours appear normal. Heart size is normal. Bones and chest wall: No suspicious bony lesions. Overlying soft tissues appear unremarkable. IMPRESSION: Persistent left basilar opacity previously noted as groundglass appearance on 05/16/2021 suggestive of infection or inflammation. No significant interval change. The above findings are concordant with preliminary report. Reviewed by: Amanda Rizo MD on 05/22/2021 8:17 AM PST Approved by: Amanda Rizo MD on 05/22/2021 8:17 AM PST Station ID: [id number]
[2021-05-22 08:25] VITALS: BP 128/84
== END 2021-05-22 09:01 | disposition home or self-care (01) ==
LOC: ED 05:40
DX: U07.1 COVID-19 (principal); J45.21 Mild intermittent asthma with (acute) exacerbation
CPT/HCPCS: 71045; 93005; 94640; 94664; 96372; 99284; J2060

== ENCOUNTER 2021-06-04 14:47 | Outpatient (CLI) | payer OTHER ==
--- NOTE | 2021-06-04 16:51 | MRI Report ---
PROCEDURE: Lower Leg (Tib-Fib) RT W/O INDICATIONS: TIBIA PAIN TECHNIQUE: Noncontrast coronal and sagittal T1 spin echo and STIR; axial T1 spin echo and T2 fast spin echo with fat saturation through the right lower leg. COMPARISON: None. FINDINGS: Image quality: Excellent. Bones: The visualized bone marrow demonstrates normal signal on all sequences. The overlying cortex appears intact. No fractures lines or intra-osseous lesions. Soft tissues: The scanned muscles demonstrate normal overall bulk and internal signal. There is a lo bulated T2 hyperintense and T1 hypointense structure along anterior medial cortex of proximal tibial shaft just medial to the distal patellar tendon insertion on tibial tuberosity and measures up to 2.3 x 0.7 x 2.1 cm in size. No other soft tissue mass or fluid collection is noted. IMPRESSION: 1. Finding may represent a 2.3 x 0.7 x 2.1 cm ganglion cyst over the anteromedial aspect of proximal tibial shaft. 2. No other soft tissue mass or fluid collection is seen. No muscle or tendon signal abnormality. 3. There is no marrow edema. No suspicious intraosseous lesion. No fracture or dislocation. Reviewed by: Duong Jimenez MD on 06/04/2021 4:50 PM PST Approved by: Duong Jimenez MD on 06/04/2021 4:50 PM PST Station ID: [id number]
== END 2021-06-04 14:48 | disposition home or self-care (01) ==
LOC: DI 14:47
PROVIDERS: ATTEND Orthopaedic Surgery
DX: M25.561 Pain in right knee (principal); R93.6 Abnormal findings on diagnostic imaging of limbs

== ENCOUNTER 2022-06-20 13:18 | Emergency (ER) | payer OTHER ==
[2022-06-20 13:56] LABS: BASOPHILS # (AUTO) 0.1 10^3/uL (0.0-0.1); BASOPHILS % (AUTO) 0.7 %; EOSINOPHILS # (AUTO) 0.1 10^3/uL (0.0-0.7); EOSINOPHILS % (AUTO) 1.4 %; HGB - HEMOGLOBIN 14.2 g/dL (12.0-16.0); LYMPHOCYTES # (AUTO) 2.2 10^3/uL (1.5-3.5); LYMPHOCYTES % (AUTO) 28.6 %; MEAN CORPUSCULAR HEMOGLOBIN 28.5 pg (27.0-31.0); MEAN CORPUSCULAR HGB CONC 32.3 g/dL (32.0-36.0); MEAN CORPUSCULAR VOLUME 88.4 fL (81.0-99.0); MEAN PLATELET VOLUME 8.9 fL (7.9-10.8); MONOCYTES # (AUTO) 0.5 10^3/uL (0.0-1.0); MONOCYTES % (AUTO) 6.6 %; NEUTROPHILS # (AUTO) 4.7 10^3/uL (1.5-6.6); NEUTROPHILS % (AUTO) 62.4 %; PLT - PLATELET COUNT 394 10^3/uL (130-450); RED BLOOD COUNT 4.98 10^6/uL (4.20-5.40); RED CELL DISTRIBUTION WIDTH 13.1 % (12.0-15.0); WHITE BLOOD COUNT 7.6 x10^3/uL (4.8-10.8)
[2022-06-20] MEDS ORDERED: KETOROLAC 30 MG/ML VIAL IM STA (14:03)
[2022-06-20] MEDS ORDERED: DEXAMETHASONE 10 MG/ML VIAL PO STA (14:04)
[2022-06-20] MEDS ORDERED: CHERRY SYRUP 10 ML UDC PO ONE (14:04)
--- NOTE | 2022-06-20 14:04 | XRAY Report ---
PROCEDURE: Chest 1 View X-Ray INDICATIONS: Chest pain TECHNIQUE: One view of the chest was acquired. COMPARISON: Chest x-ray dated 05/22/2021 FINDINGS: Surgical changes and devices: None. Lungs and pleura: No pleural effusions or pneumothorax. Lungs are clear. Mediastinum: Mediastinal contours appear normal. Heart size is normal. Bones and chest wall: No suspicious bony lesions. Overlying soft tissues appear unremarkable. IMPRESSION: No acute process. Reviewed by: Sri Gao MD on 06/20/2022 2:03 PM PST Approved by: Sri aGo MD on 06/20/2022 2:03 PM [facility] Station ID: [id number]
--- NOTE | 2022-06-20 14:07 | ED Physician Documentation ---
PD HPI CHEST PAIN - Stated complaint Stated Complaint: CHEST PX - Chief complaint Chief Complaint: Back Pain - History obtained from History obtained from: Patient, Family (spouse Chace) - History of Present Illness Timing - onset: Enter time (944), Today Timing - onset during: Rest Timing - duration: Hours Timing - details: Abrupt onset, Still present Pain level max: 7 Pain level now: 7 Quality: Tightness, Sharp, Pain Location: Substernal, Left chest Radiation: Back Improved by: Rest Worsened by: Inspiration, Movement, Palpation Associated symptoms: Nausea, Vomiting. No: Diaphoresis Similar symptoms before: Has not had sx before Recently seen: Clinic - Additional information Additional information: 41y/o female with history of SHAW has started Wegovy 4 days ago. She took her first dose at the mid dosing range and had significant nausea and vomiting for 2 days. She recovered and was OK yesterday then at about 945 this morning she developed pain to the back at the rhomboids on the left side radiating to the fr ont, worse with inspiration. Pain to the left ribs and epigastric pain. Distressing left sided plueritic . Review of Systems Constitutional: reports: Sweats. denies: Fever Eyes: denies: Photophobia Ears: denies: Drainage/discharge Nose: denies: Rhinorrhea / runny nose, Congestion Throat: denies: Sore throat Cardiac: reports: Chest pain / pressure. denies: Palpitations, Pedal edema, Calf pain Respiratory: reports: Dyspnea. 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 : None HEENT: None Psych: None Musculoskeletal: Fatigue, Other Derm: Eczema - Past Surgical History Past Surgical History: Yes General: Cholecystectomy, Colonoscopy Ortho: Other /BUILDING CONSTRUCTION INSPECTOR: section, Other - Present Medications Home Medications: Ambulatory Orders Medication Instructions Recorded Confirmed EPINEPHrine [Epipen 2-Jez] 0.3 mg IJ ONCE PRN #1 auto.injct 08/16/17 05/20/21 Albuterol 2.5 mg INH Q4H PRN 05/14/18 05/20/21 Albuterol Sulfate [Proair 2 puffs INH Q4H PRN 05/14/18 05/20/21 Respiclick] Fluticasone [Flonase] 1 sprays OFE DAILY 05/14/18 05/20/21 Fluticasone/Salmeterol [Advair 1 puffs IH BID 05/14/18 05/20/21 500-50 Diskus] Ca/D3/Mag Ox/Zinc/Psychotherapist Social Worker/Griffin/Bor 1 each PO DAILY 07/26/18 05/20/21 [Calcium [id number] Chw Tb] Dupilumab [Dupixent Pen] 1 mg INJ ONCE 12/06/20 05/20/21 Azithromycin [Zithromax] 250 mg PO DAILY 05/20/21 05/20/21 HYDROcod/ACETAM 5/325 [[place] 5/325] 1 - 2 tab PO Q6H PRN #15 tablet 05/20/21 Ketorolac [Toradol] 10 mg ORAL Q6HR PRN 05/20/21 05/20/21 predniSONE [Deltasone] 50 mg PO DAILY 05/20/21 05/20/21 diazePAM [Valium] 5 - 10 mg PO TID PRN #20 tablet 05/22/21 Semaglutide [Wegovy] 0.25 mg SQ 06/20/22 06/20/22 - Allergies Allergies/Adverse Reactions: Allergies Allergy/AdvReac Type Severity Reaction Status Date / Time peanut Allergy Severe anaphalaxis Verified 05/22/21 06:11 ipratropium bromide * Allergy Intermediate Unknown Verified 05/22/21 06:11 [From Atrovent] tree nut Allergy Anaphylaxis Verified 05/22/21 06:11 walnut Allergy Anaphylaxis Verified 05/22/21 06:11 zolpidem tartrate * AdvReac Intermediate swelling Verified 05/22/21 06:11 [From Ambien] tiotropium AdvReac Respiratory Verified 05/22/21 06:11 [From Spiriva with HandiHaler] - Social History Does the pt smoke?: No Smoking Status: Never smoker Does the pt drink ETOH?: Yes Does the pt have substance abuse?: No - Immunizations Immunizations are current?: Yes - POLST Patient has POLST: No PD ED PE NORMAL - Vitals Vital signs reviewed: Yes (hypertensive ) - General General: Alert and oriented X 3, Well developed/nourished, Other (appears to be in pain with adult services librarian tone and flattened affect) - HEENT HEENT: Atraumatic, PERRL, EOMI - Neck Neck: Supple, no meningeal sign, No bony TTP - Cardiac Cardiac: RRR, No murmur - Respiratory Respiratory: No respiratory distress, Clear bilaterally, Other (specific pain to palpation on the left rhomboid muscles reproduces the symptom the patient is having. ) - Abdomen Abdomen: Soft, Non tender - Back Back: No CVA TTP, No spinal TTP - Derm Derm: Normal color, Warm and dry, No rash - Extremities Extremities: No deformity, No edema - Neuro Neuro: Alert and oriented X 3, fur dry cleaner hand 2-12 intact, No motor deficit, No sensory deficit, Normal speech Eye Opening: Spontaneous Motor: Obeys Commands Verbal: Oriented GCS Score: 15 - Psych Psych: Normal mood, Normal affect Results - Vitals Vitals: Vital Signs - 24 hr 06/20/22 06/20/22 13:24 15:20 Temperature 36.5 C Heart Rate 85 71 Respiratory 18 14 Rate Blood Pressure 132/84 H 119/83 H O2 Saturation 100 99 Oxygen O2 Source Room air - EKG (time done) 1343 Rate: Rate (enter#) (80) [place]: LAD Ischemia: Non specific changes Compare to prior EKG: Changed from prior EKG (SPT the rate has slowed) Computer interpretation: Agree with computer - Labs Labs: Laboratory Tests 06/20/22 06/20/22 06/20/22 13:50 13:50 13:50 WBC 7.6 RBC 4.98 Hgb 14.2 Hct 44.0 MCV 88.4 MCH 28.5 MCHC 32.3 RDW 13.1 Plt Count 394 MPV 8.9 Neut # (Auto) 4.7 Lymph # (Auto) 2.2 [place] # (Auto) 0.5 Eos # (Auto) 0.1 Baso # (Auto) 0.1 Absolute Nucleated RBC 0.00 Nucleated RBC % 0.0 Sodium 138 Potassium 3.8 Chloride 103 Carbon Dioxide 22 Anion Gap 13.0 BUN 10 Creatinine 0.8 Estimated GFR (MDRD) 79 L Glucose 100 Calcium 9.4 Total Bilirubin 0.7 AST 45 H ALT 54 Alkaline Phosphatase 49 Troponin I High Sens < 2.3 L Total Protein 7.9 Albumin 4.4 Globulin 3.5 Albumin/Globulin Ratio 1.3 Lipase 37 - Rads (name of study) chest Radiology: Prelim report reviewed (Impression: No acute process.), EMP read indepedently Procedures - IVC sono (time) 0230 Bedside IVC sono: IVC measures (cm) (1.11), Dehydration (minimal about 1 liter deficit) PD Medical Decision Making - ED course Complexity details: reviewed old records, reviewed results, re-evaluated patient, considered differential, d/w patient, d/w family Reviewed Lab Results: We reviewed the patient's complete blood count with a normal hemoglobin hematocrit white blood cell count and platelets we also reviewed the patient's chemistries with normal electrolytes normal kidney and liver function and a normal high-sensitivity troponin. These laboratory results were reassuring for lack of a cardiac involvement. ED course: 41-year-old female with sudden onset of left-sided chest pain with radiation to the front that was pleuritic in nature has a history of retching 4 days prior to the onset of this pain. Her pain is reproducible by palpation to the chest wall and the work-up including a sensitive troponin electrocardiogram chest x-ray and blood work were all reassuring for no involvement of the patient's heart. This appears to be a musculoskeletal injury and likely due to retching. With delay of onset of pain secondary to inflammatory nature. The patient was treated in the emergency department with dexamethasone and Toradol with improvement in her pain. We did check for level of dehydration she was minimally dehydrated and received IV saline. Departure - Departure Disposition: 01 Home, Self Care Clinical Impression: Chest pain, pleuritic, Dehydration Condition: Stable Instructions: ED Dehydration, ED Chest Pain Pleurisy Follow-Up: LIAM VILLAFANA DO [Primary Care Provider] - Comments: Aranza, today it looks like the pain you are having in your chest is chest wall pain and this is likely due to to a strain from the retching you were doing. Today we did testing to include an x-ray of your chest, an electrocardiogram and blood work showing your blood counts, kidney, liver and pancreas function as well as a supersensitive marker of damage to your heart. All of these tests were normal or negative. My recommendation for the pain itself for treatment is to use ibuprofen or Aleve and make certain you take this with food. Discharge Date/Time: 06/20/22 15:31
[2022-06-20 14:11] LABS: ALBUMIN 4.4 g/dL (3.2-5.5); ALBUMIN/GLOBULIN RATIO 1.3 (1.0-2.2); BILIRUBIN,TOTAL 0.7 mg/dL (0.2-1.0); CALCIUM 9.4 mg/dL (8.5-10.3); CREATININE 0.8 mg/dL (0.4-1.0); POTASSIUM 3.8 mmol/L (3.5-5.0); TOTAL PROTEIN 7.9 g/dL (6.7-8.2)
[2022-06-20] MEDS ORDERED: SODIUM CHLORIDE 0.9% 1,000 ML IV STA (14:30)
[2022-06-20 15:21] VITALS: BP 119/83
== END 2022-06-20 15:31 | disposition home or self-care (01) ==
LOC: ED 13:18
DX: R07.89 Other chest pain (principal); E86.0 Dehydration
CPT/HCPCS: 36415; 71045; 80053; 83690; 84484; 85025; 93005; 96360; 96372; 99284; A9270

== ENCOUNTER 2022-12-31 12:11 | Outpatient (CLI) | payer SELFPAY | END 2022-12-31 12:12 | disposition home or self-care (01) | LOC: DI 12:11 | DX: Z53.9 Procedure and treatment not carried out, unspecified reason (principal) ==